=== PATIENT | male | born 1950 | race Caucasian/White ===

== ENCOUNTER 2018-10-28 06:29 | Day surgery (SDC) | payer BC, MEDICARE ==
[2018-10-21 10:30] VITALS: BMI 30.2
--- NOTE | 2018-10-27 18:51 | P.GSHP ---
History of Present Illness H&P Date: 10/27/18 Chief Complaint: Prostate cancer The patient is a 68-year-old white male found to have an elevated PSA level of 6.75. He has a history of superficial bladder cancer. His last bladder cancer recurrence was in October 2016. A repeat PSA level was 5.8. He underwent a prostate ultrasound with biopsies. The prostate volume was 35.1 mL. 4 of 12 biopsies showed [place] 3+4 adenocarcinoma. He has elected to be treated with external beam radiation therapy. He has elected to undergo Space OAR implant prior to receiving radiation therapy. - Constitutional Constitutional: Denies chills, Denies fever - Genitourinary (Female) Genitourinary: Reports nocturia Past Medical History Past Medical History: Coronary Artery Disease (CAD), Cancer, Heart Failure, Hyperlipidemia, Hypertension, Prostate Disorder Additional Past Medical History / Comment(s): hx bleeding ulcer, bladder cancer, prostate cancer History of Any Multi-Drug Resistant Organisms: None Reported Past Surgical History: Back Surgery, Coronary Bypass/CABG, Heart Catheterization, Orthopedic Surgery, Tonsillectomy Additional Past Surgical History / Comment(s): CABG 10/1998, rt knee replacement, sonja shoulder rotator cuff, neck fusion(no limitations in neck movement), lumbar laminectomy, Past Anesthesia/Blood Transfusion Reactions: No Reported Reaction Smoking Status: Former smoker - Past Family History Mother Family Medical History: No Reported History Medications and Allergies Home Medications Medication Instructions Recorded Confirmed Type ALPRAZolam [Xanax] 0.25 mg PO BID 10/21/18 10/21/18 History Aspirin [Adult Low Dose Aspirin EC] 81 mg PO DAILY 10/21/18 10/21/18 History Atorvastatin [Lipitor] 40 mg PO HS 10/21/18 10/21/18 History Furosemide [Lasix] 20 mg PO HS 10/21/18 10/21/18 History Hydrocodone/Acetaminophen [[place] 1 tab PO Q4H PRN 10/21/18 10/21/18 History 10-325] Metoprolol Tartrate [Lopressor] 100 mg PO DAILY 10/21/18 10/21/18 History Beach-3 Fatty Acids/Fish Oil [Fish 1 each PO DAILY 10/21/18 10/21/18 History Oil 1,000 mg Softgel] Potassium Chloride [Klor-Con 20] 20 meq PO HS 10/21/18 10/21/18 History Tamsulosin HCl [Flomax] 0.4 mg PO PC-SUPPER 10/21/18 10/21/18 History amLODIPine [Norvasc] 10 mg PO DAILY 10/21/18 10/21/18 History Allergies Allergy/AdvReac Type Severity Reaction Status Date / Time Penicillins Allergy Rash/Hives Verified 10/21/18 10:13 Surgical - Exam - General well developed, well nourished, no distress - Respiratory normal respiratory effort - Abdomen Abdomen: soft, non tender, no guarding, no rigid, no rebound - Genitourinary normal penis with no external lesions, testicles non-tender - Rectum Rectum: normal sphincter tone, no masses, other (Prostate mildly enlarged and smooth) - Psychiatric oriented to time, oriented to person, oriented to place, speech is normal, memory intact Assessment and Plan Plan: The patient has elected to undergo SpaceOAR hydrogel implant prior to receiving radiation therapy. He understands that the rationale for the procedure is to create distance between the prostate and rectum, thus decreasing the likelihood of radiation proctitis. The procedure has been reviewed in detail with the patient. He is aware of potential risks, which include anesthesia, bleeding, perineal bruising, pain or discomfort; needle penetration of the bladder, prostate, rectal wall, rectum, or urethra; injection of SpaceOAR hydrogel into the bladder, prostate, rectal wall, rectum, or urethra; local inflammatory reactions; infection; injection of air, fluid or SpaceOAR hydrogel intravascularly; urinary retention; rectal mucosal damage, ulcers, necrosis; bleeding; constipation; and rectal urgency. It was explained to him that the hydrogel is resorbed after approximately 12 weeks.
[~2018-10-28 06:29] MED LIST: DEXAMETHASONE SOD PHOSPHATE 10 MG/ML 1 ML VIAL IV ONE; LACTATED RINGERS 1,000 ML IV SCH; LEVOFLOXACIN 500MG-D5W PMX 500 MG in DEXTROSE/WATER 1 100ML.BAG IVPB ONE; LIDOCAINE 1% 20 ML VIAL (10MG/ML) FOR IV START INTRADERMA PRN
[2018-10-28 06:54] VITALS: RESP 16
[2018-10-28] MEDS ORDERED: PROPOFOL 10 MG/ML 20 ML VIAL IV ONE (07:30)
[2018-10-28] MEDS ORDERED: fentaNYL (PF) 50 MCG/ML 2 ML AMP ONE (07:30)
[2018-10-28] MEDS ORDERED: KETAMINE 10 MG/ML 20 ML VIAL ONE (07:30)
[2018-10-28] MEDS ORDERED: LIDOCAINE 1% INJ 10MG/ML (20 ML MDV) ONE (07:30)
[2018-10-28] MEDS ORDERED: MIDAZOLAM 2 MG/2 ML VIAL ONE (07:30)
[2018-10-28] MEDS ORDERED: LIDOCAINE 2% (PF) 20 MG/ML 5 ML VIAL SQ ONE (07:34)
[2018-10-28 08:30] VITALS: TEMP 98
[2018-10-28] MEDS: HYDROmorphone 0.5 MG/0.5 ML SYRINGE IVP PRN ×2 (08:36→08:41)
--- NOTE | 2018-10-28 09:00 | P.OP ---
Date of Procedure: 10/28/18 Preoperative Diagnosis: Adenocarcinoma of the Prostate Postoperative Diagnosis: Same Procedure(s) Performed: SpaceOAR Hydrogel Implant Anesthesia: MAC Surgeon: Patel Peoples Estimated Blood Loss (ml): 10 IV fluids (ml): 500 Pathology: none sent Condition: stable Disposition: PACU Indications for Procedure: The patient is a 68-year-old white male found to have an elevated PSA level of 6.75. He has a history of superficial bladder cancer. His last bladder cancer recurrence was in October 2016. A repeat PSA level was 5.8. He underwent a prostate ultrasound with biopsies. The prostate volume was 35.1 mL. 4 of 12 biopsies showed [place] 3+4 adenocarcinoma. He has elected to be treated with external beam radiation therapy. He has elected to undergo Space OAR implant prior to receiving radiation therapy. Operative Findings: Greater than 1 cm separation created between the prostate and rectum. Description of Procedure: The patient was taken to the operating room and placed in the dorsolithotomy position, with his legs supported in Rosendo stirrups. The external genitalia was prepped and draped sterilely. The Bruel and Kjaer transrectal ultrasound probe was placed intrarectally. The prostate was imaged. The probe was then placed within the stabilizing stand. A spinal needle was advanced under ultrasonic guidance to the level of the urogenital diaphragm, and lidocaine was used to infiltrate the tissues as the needle was withdrawn. Next, the SpaceOAR needle was passed through the midline of the perineum, 1-2 cm anterior to the anal opening. The needle was slowly advanced under ultrasonic guidance until the needle tip was located within the fat plane between the prostate and rectum, at the level of the mid prostate gland. The needle was confirmed to be midline on the axial imaging. A small amount of normal saline was injected for hydrodissection. Next, the SpaceOAR components were mixed and loaded into the Y connector per protocol. The Y connector was then connected to the needle, and the components were injected slowly over a course of approximately 12 seconds. A total of 10 ml was injected. Significant distance was created between the prostate and rectum, as desired. It should be noted that at no point was there any concern of rectal perforation. The needle was withdrawn, as well as the transrectal ultrasound probe, and the procedure was terminated. The patient tolerated the procedure well and was taken to the recovery room in stable condition.
[2018-10-28 09:34] VITALS: BP 150/81; PULSE 78
== END 2018-10-28 09:54 | disposition home or self-care (01) ==
LOC: OR 06:29
PROVIDERS: ATTEND Urology
DX: C61 Malignant neoplasm of prostate (principal); I25.10 Atherosclerotic heart disease of native coronary artery without angina pectoris; E78.5 Hyperlipidemia, unspecified; I11.0 Hypertensive heart disease with heart failure; I50.9 Heart failure, unspecified; Z85.51 Personal history of malignant neoplasm of bladder; Z98.1 Arthrodesis status; Z87.891 Personal history of nicotine dependence; Z79.82 Long term (current) use of aspirin; Z79.899 Other long term (current) drug therapy; Z88.0 Allergy status to penicillin; Z90.89 Acquired absence of other organs; Z95.1 Presence of aortocoronary bypass graft; Z96.651 Presence of right artificial knee joint; Z98.890 Other specified postprocedural states
CPT/HCPCS: 55874; J2250; J1100; J1956; J2001 ×2; J3010; J2704; J1170

== ENCOUNTER → 2019-07-13 | Outpatient (CLI) | payer BC ==
--- NOTE | 2019-07-13 12:00 | US ---
EXAMINATION TYPE: US kidneys/renal and bladder DATE OF EXAM: 07/13/2019 COMPARISON: NONE CLINICAL HISTORY: N20.0 CALCULUS OF KIDNEY. Rt flank pain, probable renal cell carcinoma , hx of prostate cancer, bladder cancer EXAM MEASUREMENTS: Right Kidney: 12.8 x 5.6 x 5.2 cm Left Kidney: 12.8 x 5.6 x 4.9 cm Right Kidney: hyperechoic mass measuring 3.9 x 3.5 x 4.2 suspicious for renal cell carcinoma, anechoi c parapelvic mass, measuring 1.3 x 1.0 x 1.0cm, lateral lobulations Left Kidney: hyperechoic foci measuring 0.5 x 0.3 x 0.7 Bladder: wnl Bilateral Jets seen: left jet seen, right not visualized Both kidneys are symmetric and normal in size. An upper to mid pole level there is 3.9 x 3.5 cm oval hyperechoic mass in the right kidney. No right-sided hydronephrosis. Left kidney shows 5 mm nonshadow ing hyperechoic focus lower pole level suspicious for small stone. No hydronephrosis noted. Bladder p oorly distended. IMPRESSION: Suspicious area right kidney worrisome for roughly 4 cm solid mass or neoplasm. Follow-up renal protocol CT or MRI advised if this has not been performed. Possible nonobstructing 5 mm left r enal calculus. No hydronephrosis noted bilaterally.
--- NOTE | 2019-07-13 12:52 | XR ---
KUB HISTORY: Calculus of kidney Frontal KUB submitted on 2 images And correlation ultrasound 07/13/2019 Postop changes are noted in the lumbar spine, there is degenerative disc change with hypertrophic spo ndylosis, spinal curvature. Bone mineralization is normal. Question small calcification in the lower pole of the left kidney measuring approximately 4 mm. Vascular calcifications are noted in the pelvis . No evident bowel obstruction or pneumoperitoneum. Prostatic calcifications are suspected. IMPRESSION: Left-sided nephrolithiasis. Degenerative disc disease. Renal mass described on ultrasound in the right kidney not seen on plain film.
== END | disposition home or self-care (01) ==
LOC: RADUSWWP 10:54
PROVIDERS: ATTEND Urology
DX: N20.0 Calculus of kidney (principal); Z88.0 Allergy status to penicillin
CPT/HCPCS: 74018; 76770

== ENCOUNTER → 2019-08-10 | Outpatient (CLI) | payer BC ==
[2019-08-10 12:06] LABS: Basophils % (A) 0 %; Eosinophils # (A) 0.1 k/uL (0-0.7); Eosinophils % (A) 1 %; HCT 42.7 % (39.0-53.0); HGB 14.4 gm/dL (13.0-17.5); Lymphocytes # (A) 0.7 k/uL (1.0-4.8); Lymphocytes % (A) 12 %; MCH 33.7 pg (25.0-35.0); MCHC 33.9 g/dL (31.0-37.0); MCV 99.5 fL (80.0-100.0); Mean Platelet Volume 7.4; Monocytes # (A) 0.5 k/uL (0-1.0); Monocytes % (A) 9 %; Neutrophils # (A) 4.3 k/uL (1.3-7.7); Neutrophils % (A) 75 %; Platelet Count 216 k/uL (150-450); RBC 4.29 m/uL (4.30-5.90); RDW 13.2 % (11.5-15.5); WBC 5.7 k/uL (3.8-10.6)
[2019-08-10 12:19] LABS: African American GFR (CKD) >90 (>60 ml/min/1.73 sqM); Anion Gap 10 mmol/L; Blood Urea Nitrogen 14 mg/dL (9-20); Calcium 9.5 mg/dL (8.4-10.2); Carbon Dioxide 24 mmol/L (22-30); Chloride 104 mmol/L (98-107); Glucose 124 mg/dL (74-99); Non-African American GFR(CKD) >90 (>60 ml/min/1.73 sqM); Potassium 3.5 mmol/L (3.5-5.1); Sodium 138 mmol/L (137-145)
--- NOTE | 2019-08-10 13:53 | XR ---
EXAMINATION TYPE: XR chest 2V DATE OF EXAM: 08/10/2019 COMPARISON: NONE HISTORY: Surgical testing TECHNIQUE: Frontal and lateral views of the chest are obtained. FINDINGS: Patient is post median sternotomy. There is no focal air space opacity, pleural effusion, o r pneumothorax seen. The cardiac silhouette size is enlarged. The osseous structures are intact, p ostop change noted to the right shoulder. Right hemidiaphragm is elevated. IMPRESSION: Cardiomegaly, postop changes, patient is rotated there is elevation of right hemidiaphra gm.
== END | disposition home or self-care (01) ==
LOC: RADMRIMAIN 10:29
PROVIDERS: ATTEND Urology
DX: Z01.818 Encounter for other preprocedural examination (principal); D41.01 Neoplasm of uncertain behavior of right kidney; I10 Essential (primary) hypertension; R06.02 Shortness of breath
CPT/HCPCS: 36415; 71046; 80048; 85025; 93005

== ENCOUNTER 2019-08-17 06:35 | Inpatient (IN) | payer BC, MEDICARE ==
--- NOTE | 2019-08-16 12:00 | P.HPIHPCON ---
History of Present Illness H&P Date: 08/16/19 Chief Complaint: Right sided renal tumor Mr Calhoun is 69 yo male with hx of right sided renal mass. MRI showed 4 cm mass in the right kidney. We discussed with him the option of radical nephrectomy, partial nephrectomy, Discussed with him the risk and benefit of each approach. He agreed to proceed with robtoic assisted partial nephrectomy. Discussed with him the potential of open conversion and potential of radical nephrectomy. Discussed risk of bleeding, injury to nearby organs. I have explained the operation/procedure to the patient, including the risks, benefits, side effects, alternative therapies (including not receiving the proposed treatment or service), the likelihood of the patient achieving his/her goals, and potential recuperation problems for the procedure/sedation/analgesia, as well as any blood products, if indicated. I also explained to the patient the risks, benefits and side effects of the alternatives, as well as the risks related to not receiving the proposed procedure, care, treatment, or services. Consent for Procedure: I have explained the operation/procedure to the patient, including the risks, benefits, side effects, alternative therapies (including not receiving the proposed treatment or service), the likelihood of the patient achieving his/her goals, and potential recuperation problems for the procedure/sedation/analgesia, as well as any blood products, if indicated. I also explained to the patient the risks, benefits and side effects of the alternatives, as well as the risks related to not receiving the proposed procedure, care, treatment, or services. Past Medical History Past Medical History: Coronary Artery Disease (CAD), Cancer, GERD/Reflux, Hyperlipidemia, Hypertension, Prostate Disorder Additional Past Medical History / Comment(s): hx bleeding ulcer, bladder cancer, prostate cancer(radiation 2019), constipation, dilated bile duct, History of Any Multi-Drug Resistant Organisms: None Reported Past Surgical History: Back Surgery, Bladder Surgery, Coronary Bypass/CABG, Heart Catheterization, Joint Replacement, Orthopedic Surgery, Tonsillectomy Additional Past Surgical History / Comment(s): CABG (quad)1998, rt knee replacement, sonja shoulder rotator cuff, neck fusion(no limitations in neck movement), lumbar laminectomy, 4 bladder surgeries to remove tumors Past Anesthesia/Blood Transfusion Reactions: No Reported Reaction Smoking Status: Former smoker - Past Family History Mother Family Medical History: No Reported History Medications and Allergies Home Medications Medication Instructions Recorded Confirmed Type ALPRAZolam [Xanax] 0.25 mg PO BID 10/21/18 08/15/19 History Atorvastatin [Lipitor] 40 mg PO HS 10/21/18 08/15/19 History Hydrocodone/Acetaminophen [[place] 1 tab PO Q4H PRN 10/21/18 08/15/19 History 10-325] Tamsulosin HCl [Flomax] 0.4 mg PO BID 10/21/18 08/15/19 History amLODIPine [Norvasc] 10 mg PO DAILY 10/21/18 08/15/19 History Metoprolol Succinate [Toprol XL] 100 mg PO DAILY 08/15/19 08/15/19 History Omeprazole 20 mg PO DAILY 08/15/19 08/15/19 History Ondansetron HCl [Zofran] 4 mg PO Q6HR PRN 08/15/19 08/15/19 History Potassium Chloride ER [K-Dur 20] 20 meq PO BID 08/15/19 08/15/19 History Allergies Allergy/AdvReac Type Severity Reaction Status Date / Time Penicillins Allergy Rash/Hives Verified 08/15/19 14:19 Surgical - Exam - General no distress - Respiratory normal expansion, normal respiratory effort - Abdomen Abdomen: soft, non tender - Psychiatric oriented to time, oriented to person, oriented to place Assessment and Plan Assessment: 69 yo male with hx of right sided renal tumor -OR for robotic Partial nephrectomy possible radical
[~2019-08-17 06:35] MED LIST changes: -LEVOFLOXACIN 500MG-D5W PMX 500 MG in DEXTROSE/WATER 1 100ML.BAG IVPB ONE; -LIDOCAINE 1% 20 ML VIAL (10MG/ML) FOR IV START INTRADERMA PRN; +MIDAZOLAM 2 MG/2 ML VIAL IV PRN; +ONDANSETRON 4 MG/2 ML VIAL IVP ONE
[2019-08-17] MEDS ORDERED: LIDOCAINE 1% (10MG/ML) FOR IV START INTRADERMA ONE (07:05)
[2019-08-17] MEDS ORDERED: HEPARIN SODIUM,PORCINE 5,000 UNIT/ML 1 ML VIAL ONE (07:16)
[2019-08-17] MEDS ORDERED: ONDANSETRON 4 MG/2 ML VIAL ONE (07:16)
[2019-08-17] MEDS: HEPARIN SODIUM,PORCINE 5,000 UNIT/ML 1 ML VIAL SQ ONE ×2 (07:30→07:31)
[2019-08-17] MEDS ORDERED: PHENYLEPHRINE-0.9% NACL SYG 1 MG/10 ML SYRINGE ONE (07:33)
[2019-08-17] MEDS ORDERED: SUCCINYLCHOLINE CHLORIDE 100 MG/5 ML SYR IV ONE (07:33)
[2019-08-17] MEDS ORDERED: fentaNYL (PF) 50 MCG/ML 2 ML AMP ONE (07:33)
[2019-08-17] MEDS ORDERED: LIDOCAINE 1% INJ 10MG/ML (20 ML MDV) ONE (07:33)
[2019-08-17] MEDS ORDERED: ROCURONIUM BROMIDE 10 MG/ML 5 ML VIAL IV ONE (07:33)
[2019-08-17] MEDS ORDERED: GLYCOPYRROLATE 0.2 MG/ML 2 ML VIAL ONE (07:33)
[2019-08-17] MEDS ORDERED: MIDAZOLAM 2 MG/2 ML VIAL ONE (07:33)
[2019-08-17] MEDS ORDERED: HYDROmorphone (PF) 1 MG/ML ONE (07:33)
[2019-08-17] MEDS ORDERED: ePHEDrine SULFATE/0.9% NACL/PF 50 MG/5 ML SYRINGE IV ONE (07:33)
[2019-08-17] MEDS ORDERED: PROPOFOL 10 MG/ML 20 ML VIAL IV ONE (07:33)
[2019-08-17] MEDS ORDERED: NEOSTIGMINE 1 MG/ML 10 ML VIAL ONE (07:33)
[2019-08-17] MEDS ORDERED: BUPIVACAIN-EPI 0.5%-1:200,000 30 ML VIAL SQ ONE (08:37)
[2019-08-17] MEDS ORDERED: D5-0.45% NACL WITH KCL 20MEQ/L 1,000 ML IV SCH (09:00)
[2019-08-17] MEDS ORDERED: LACTATED RINGERS 1,000 ML IV ONE (10:15)
--- NOTE | 2019-08-17 10:48 | P.OP ---
Date of Procedure: 08/17/19 Preoperative Diagnosis: Right renal mass Postoperative Diagnosis: Right renal mass Procedure(s) Performed: Robotic right radical nephrectomy Anesthesia: ANNEMARIE Surgeon: Shant Berry Scenic Designer #1: Cruz Hernandez Estimated Blood Loss (ml): 100 IV fluids (ml): 700 Urine output (ml): 200 Pathology: other (right kidney) Condition: stable Disposition: PACU Indications for Procedure: The patient was found to have an incidentally detected large right upper pole renal mass which was mostly endophytic and extending to the collecting system Operative Findings: Extreme adiposity of the perinephric tissues with inflammatory fat. Large parasitic vessels and the perinephric fat. Multiple renal arteries and single renal vein. Description of Procedure: The patient elected to undergo a robotic right partial nephrectomy possible radical nephrectomy. All risks and complications were explained to him and a written informed consent was obtained. He was taken to the OR and administered general anesthesia and they placed in right lateral position. He was secured to the table and parts were prepped and draped. A Veress needle was used to gain access to the peritoneum and a pneumoperitoneum was established to 20 mmHg. Four 8 mm ports were placed along the midclavicular line and an additional 12 mm assistant boiler operator port was placed in the midline and a 5 mm liver retraction port in the in the xiphoid area The robot was docked. Inspection of the peritoneum revealed significant perinephric fat. The right colon was reflected off the gerota fascia and an incision was made in the pararenal ligament. The duodenum was reflected off the gerota fascia. There were multiple large parasitic vessels and the perinephric fat. These were controlled with bipolar. The perinephric fat was retracted laterally to identify the psoas muscle. An accessory renal artery was seen in the lower pole of the kidney. This was protected. Dissection was carried superiorly to the renal hilum where again a lot off take inflammatory adipose tissue was encountered around the renal vessels. There were 2 separate renal arteries 1 each below and above the renal vein and the renal vein was also dissected. Attention was then directed to the perinephric fat and considerable time was spent and reflecting the perinephric fat off the kidney. The fat was found to be inflammatory and adherent to the renal capsule and it was impossible to separate the fat from the Seal adequately to identify the margins of the kidney and the renal mass. A decision was then made to proceed with a radical nephrectomy. The lower pole renal artery was clipped twice on the body side and once on the specimen side and cut in between. Using a Endo KHADAR stapler 60 mm vascular load of the renal hilum was controlled with vernell and cut. The superior pole of the kidney was dissected by incising the general pass fascia and controlling all bleeding points with bipolar and monopolar. The dissection was then carried inferiorly lateral to the kidney. At the lower pole of the kidney a staple was used to control the gonadal vessel and the ureter and the kidney was completely freed. Hemostasis was confirmed and doubly checked. Tisseel was used over the hilum and a Surgicel was placed over the hilum. The kidney with adrenal mass was placed in a 15 mm Endo Catch bag. A count off instruments was completed. And the Endo Catch bag was removed after making an open incision. The paramedian incision was closed in 2 layers with #1 stratafix and the skin was closed with 4-0 Monocryl. The patient tolerated the procedure well and was taken to recovery in stable condition
[2019-08-17] MEDS: HYDROmorphone 0.5 MG/0.5 ML SYRINGE IVP PRN ×4 (11:06→11:36)
[2019-08-17] MEDS: KETOROLAC 30 MG/ML 1 ML VIAL IVP SCH ×2 (11:37→15:58)
[2019-08-17] MEDS: fentaNYL (PF) 50 MCG/ML 2 ML AMP IVP ONE ×2 (12:08→12:21)
[2019-08-17] MEDS: HYDROmorphone 1 MG/ML 1 ML SYRINGE IVP PRN ×4 (13:23→22:33)
[2019-08-17] MEDS: D5-0.45% NACL WITH KCL 20MEQ/L 1,000 ML IV SCH ×2 (14:10→22:47)
[2019-08-17] MEDS: HEPARIN SODIUM,PORCINE 5,000 UNIT/ML 1 ML VIAL SQ SCH (15:58)
[2019-08-17] MEDS: ONDANSETRON 4 MG/2 ML VIAL IVP PRN (16:57)
[2019-08-17] MEDS ORDERED: SODIUM CHLORIDE 0.9% 500 ML 500 ML IV ONE (21:02)
[2019-08-17 21:18] LABS: Calcium 7.6 mg/dL (8.4-10.2); Potassium 4.7 mmol/L (3.5-5.1)
[2019-08-17 21:37] LABS: Basophils % (A) 0 %; Eosinophils # (A) 0.1 k/uL (0-0.7); Eosinophils % (A) 1 %; HCT 32.6 % (39.0-53.0); Hypochromasia Marked; Lymphocytes # (A) 0.2 k/uL (1.0-4.8); Lymphocytes % (A) 2 %; MCH 33.6 pg (25.0-35.0); MCHC 30.6 g/dL (31.0-37.0); Macrocytosis Marked; Monocytes # (A) 0.5 k/uL (0-1.0); Monocytes % (A) 5 %; Neutrophils # (A) 9.2 k/uL (1.3-7.7); Neutrophils % (A) 92 %; Platelet Count 276 k/uL (150-450); RBC 2.97 m/uL (4.30-5.90); RDW 13.1 % (11.5-15.5)
[2019-08-17 21:40] LABS: MCV 109.7 fL (80.0-100.0)
[2019-08-17] MEDS: TAMSULOSIN 0.4 MG CAP.ER.24H PO SCH (22:43)
[2019-08-17] MEDS: ATORVASTATIN 40 MG TAB PO SCH (22:44)
[2019-08-17] MEDS: ALPRAZolam 0.25 MG TAB PO SCH (22:45)
[2019-08-18] MEDS: HYDROmorphone 1 MG/ML 1 ML SYRINGE IVP PRN ×7 (01:12→23:14)
[2019-08-18] MEDS: KETOROLAC 30 MG/ML 1 ML VIAL IVP SCH ×3 (01:14→12:15)
[2019-08-18] MEDS: HEPARIN SODIUM,PORCINE 5,000 UNIT/ML 1 ML VIAL SQ SCH ×3 (01:19→16:38)
[2019-08-18] MEDS: ONDANSETRON 4 MG/2 ML VIAL IVP PRN ×3 (06:13→20:24)
[2019-08-18] MEDS: D5-0.45% NACL WITH KCL 20MEQ/L 1,000 ML IV SCH ×2 (07:02→10:14)
[2019-08-18] MEDS: ALPRAZolam 0.25 MG TAB PO SCH ×2 (08:51→20:23)
[2019-08-18] MEDS: TAMSULOSIN 0.4 MG CAP.ER.24H PO SCH ×2 (08:52→20:24)
[2019-08-18] MEDS: METOPROLOL SUCCINATE (ER) 100 MG TAB.ER.24H PO SCH (08:52)
[2019-08-18] MEDS: PANTOPRAZOLE 40 MG TABLET PO SCH (08:52)
[2019-08-18] MEDS: amLODIPine 10 MG TAB PO SCH (08:55)
[2019-08-18 09:43] LABS: Basophils % (A) 0 %; Eosinophils % (A) 0 %; HCT 25.4 % (39.0-53.0); Lymphocytes # (A) 0.4 k/uL (1.0-4.8); Lymphocytes % (A) 4 %; MCH 33.4 pg (25.0-35.0); Macrocytosis Slight; Mean Platelet Volume 7.8; Monocytes # (A) 0.6 k/uL (0-1.0); Monocytes % (A) 6 %; Neutrophils # (A) 8.9 k/uL (1.3-7.7); Neutrophils % (A) 89 %; Platelet Count 238 k/uL (150-450); RBC 2.52 m/uL (4.30-5.90); RDW 13.5 % (11.5-15.5); WBC 10.1 k/uL (3.8-10.6)
[2019-08-18 09:44] LABS: HGB 8.4 gm/dL (13.0-17.5); MCV 101.1 fL (80.0-100.0)
--- NOTE | 2019-08-18 11:51 | P.PN ---
Subjective Progress Note Date: 08/18/19 Principal diagnosis: right renal tumor POD #1 S/P right sided radical nephrectomy Having abdominal pain this am worse on the left, also complains of nausea. Hgb dropped to 8.4--> 10.0-->14 Objective - Vital Signs Vital signs: Vital Signs Temp 97.9 F 08/18/19 07:00 Pulse 101 H 08/18/19 08:55 Resp 18 08/18/19 07:00 BP 132/75 08/18/19 08:55 Pulse Ox 92 L 08/18/19 08:53 Intake & Output 08/17/19 08/18/19 08/18/19 18:59 06:59 18:59 Intake Total 2890 Output Total 1280 Balance 1610 Weight 96.1 kg Intake: IV 2350 Oral 540 Output: Urine 880 Estimated Blood Loss 400 Other: Voiding Method Indwelling Catheter Indwelling Catheter Indwelling Catheter # Bowel Movements 0 # Emeses 2 - Constitutional General appearance: Present: mild distress - Gastrointestinal General gastrointestinal: Present: distended, soft, tenderness (left quadrant ) - Psychiatric Psychiatric: Present: A&O x's 3 - Labs CBC & Chem 7: 08/18/19 08:53 08/17/19 20:45 Labs: Abnormal Lab Results - Last 24 Hours (Table) 08/17/19 08/17/19 08/18/19 Range/Units 20:45 20:45 08:53 RBC 2.97 L 2.52 L (4.30-5.90) m/uL Hgb 10.0 L D 8.4 L D (13.0-17.5) gm/dL Hct 32.6 L 25.4 L (39.0-53.0) % MCV 109.7 H D 101.1 H D (80.0-100.0) fL MCHC 30.6 L (31.0-37.0) g/dL Neutrophils # 9.2 H 8.9 H (1.3-7.7) k/uL Lymphocytes # 0.2 L 0.4 L (1.0-4.8) k/uL Macrocytosis Marked A Sodium 133 L (137-145) mmol/L Carbon Dioxide 11 L (22-30) mmol/L BUN 24 H (9-20) mg/dL Creatinine 1.30 H (0.66-1.25) mg/dL Glucose 263 H (74-99) mg/dL Calcium 7.6 L (8.4-10.2) mg/dL Assessment and Plan Assessment: POD #1 S/P right sided radical nephrectomy, hgb dropped to 8.4 from 14 -Bed rest -NPO -q6 hgb checks
[2019-08-18] MEDS: methocarbamoL 500 MG TAB PO SCH ×3 (12:31→20:23)
[2019-08-18] MEDS: ERYTHROMYCIN 5 MG/GM OPHTH OINT 3.5 GM TUBE RIGHT EYE SCH (12:32)
[2019-08-18 15:31] LABS: Basophils % (A) 0 %; Eosinophils # (A) 0.1 k/uL (0-0.7); Eosinophils % (A) 1 %; HGB 8.3 gm/dL (13.0-17.5); Lymphocytes # (A) 0.6 k/uL (1.0-4.8); Lymphocytes % (A) 5 %; MCH 32.3 pg (25.0-35.0); MCHC 31.9 g/dL (31.0-37.0); MCV 101.4 fL (80.0-100.0); Macrocytosis Slight; Mean Platelet Volume 7.8; Monocytes # (A) 0.5 k/uL (0-1.0); Monocytes % (A) 4 %; Neutrophils # (A) 10.6 k/uL (1.3-7.7); Neutrophils % (A) 89 %; Platelet Count 257 k/uL (150-450); RBC 2.56 m/uL (4.30-5.90); RDW 13.6 % (11.5-15.5); WBC 11.9 k/uL (3.8-10.6)
[2019-08-18 15:56] LABS: Calcium 7.6 mg/dL (8.4-10.2); Potassium 3.8 mmol/L (3.5-5.1)
[2019-08-18] MEDS: SODIUM CHLORIDE 0.9% 1,000 ML IV SCH (16:38)
--- NOTE | 2019-08-18 17:38 | XR ---
EXAMINATION TYPE: XR chest 2V DATE OF EXAM: 08/18/2019 COMPARISON: 08/10/2019 HISTORY: Short of breath TECHNIQUE: 2 views. FINDINGS: There is no heart failure. There is some linear density at the left lung base. Heart appears slightl y enlarged. There is poor inspiration. There are sternal wires. IMPRESSION: There is some atelectasis at the left lung base that is new compared to old exam. Inspira tion decreased compared to old exam.
[2019-08-18] MEDS: ATORVASTATIN 40 MG TAB PO SCH (20:23)
[2019-08-18 22:35] LABS: HGB 7.7 gm/dL (13.0-17.5); MCH 33.8 pg (25.0-35.0); MCHC 33.3 g/dL (31.0-37.0); MCV 101.6 fL (80.0-100.0); Macrocytosis Slight; Mean Platelet Volume 7.7; Platelet Count 215 k/uL (150-450); RBC 2.27 m/uL (4.30-5.90); RDW 13.6 % (11.5-15.5); WBC 10.6 k/uL (3.8-10.6)
[2019-08-19] MEDS: ERYTHROMYCIN 5 MG/GM OPHTH OINT 3.5 GM TUBE RIGHT EYE SCH ×4 (01:28→23:34)
[2019-08-19] MEDS: HEPARIN SODIUM,PORCINE 5,000 UNIT/ML 1 ML VIAL SQ SCH ×2 (01:28→09:20)
[2019-08-19] MEDS: SODIUM CHLORIDE 0.9% 1,000 ML IV SCH ×5 (01:30→23:34)
[2019-08-19 03:03] LABS: HCT 24.1 % (39.0-53.0); HGB 7.8 gm/dL (13.0-17.5); MCH 31.9 pg (25.0-35.0); MCHC 32.6 g/dL (31.0-37.0); MCV 97.8 fL (80.0-100.0); Mean Platelet Volume 9.4; Platelet Count 168 k/uL (150-450); RBC 2.46 m/uL (4.30-5.90)
[2019-08-19] MEDS: ONDANSETRON 4 MG/2 ML VIAL IVP PRN (05:26)
[2019-08-19] MEDS: HYDROmorphone 1 MG/ML 1 ML SYRINGE IVP PRN ×4 (05:26→23:30)
[2019-08-19] MEDS: PANTOPRAZOLE 40 MG TABLET PO SCH (09:20)
[2019-08-19] MEDS: amLODIPine 10 MG TAB PO SCH (09:20)
[2019-08-19] MEDS: METOPROLOL SUCCINATE (ER) 100 MG TAB.ER.24H PO SCH (09:20)
[2019-08-19] MEDS: methocarbamoL 500 MG TAB PO SCH ×4 (09:20→20:53)
[2019-08-19] MEDS: ALPRAZolam 0.25 MG TAB PO SCH ×2 (09:20→20:53)
[2019-08-19] MEDS: TAMSULOSIN 0.4 MG CAP.ER.24H PO SCH ×2 (09:20→20:53)
[2019-08-19 10:22] LABS: Basophils % (A) 0 %; Eosinophils % (A) 0 %; HCT 26.4 % (39.0-53.0); HGB 9.1 gm/dL (13.0-17.5); Lymphocytes # (A) 0.4 k/uL (1.0-4.8); Lymphocytes % (A) 5 %; MCH 33.5 pg (25.0-35.0); MCHC 34.4 g/dL (31.0-37.0); MCV 97.5 fL (80.0-100.0); Mean Platelet Volume 7.9; Monocytes # (A) 0.5 k/uL (0-1.0); Monocytes % (A) 6 %; Neutrophils # (A) 7.9 k/uL (1.3-7.7); Neutrophils % (A) 88 %; Platelet Count 185 k/uL (150-450); RBC 2.71 m/uL (4.30-5.90); RDW 14.3 % (11.5-15.5); WBC 8.9 k/uL (3.8-10.6)
[2019-08-19 10:33] LABS: Calcium 7.3 mg/dL (8.4-10.2); Potassium 3.9 mmol/L (3.5-5.1)
--- NOTE | 2019-08-19 12:27 | ECHOF ---
Referral Reason:elev trop MEASUREMENTS -------- HEIGHT: 180.3 cm WEIGHT: 95.7 kg BP: RVIDd: 3.0 cm (< 3.3) IVSd: 1.5 cm (0.6 - 1.1) LVIDd: 3.9 cm (3.9 - 5.3) LVPWd: 1.8 cm (0.6 - 1.1) IVSs: 2.0 cm LVIDs: 2.5 cm LVPWs: 2.3 cm Ao Diam: 3.4 cm (2.0 - 3.7) AV Cusp: 2.4 cm (1.5 - 2.6) LA Diam: 3.4 cm (2.7 - 3.8) MV EXCURSION: 21.388 mm (> 18.000) MV EF SLOPE: 53 mm/s (70 - 150) EPSS: 0.9 cm RAP: 5.00 mmHg RVSP: 19.13 mmHg FINDINGS -------- Sinus rhythm. This was a technically difficult study with suboptimal views. The left ventricular size is normal. There is moderate concentric left ventricular hypertrophy. O verall left ventricular systolic function is low-normal with, an EF between 50 - 55 %. The right ventricle is normal in size. The left atrial size is normal. The right atrial size is normal. Lumason used The aortic valve is trileaflet and appears structurally normal. The mitral valve is normal. There is trace mitral regurgitation. The tricuspid valve appears structurally normal. Mild tricuspid regurgitation present. Right vent ricular systolic pressure is normal at < 35 mmHg. There is no pulmonic regurgitation present. The aortic root size is normal. IVC Not well visulized. There is no pericardial effusion. CONCLUSIONS -------- 1. Sinus rhythm. 2. This was a technically difficult study with suboptimal views. 3. The left ventricular size is normal. 4. There is moderate concentric left ventricular hypertrophy. 5. Overall left ventricular systolic function is low-normal with, an EF between 50 - 55 %. 6. The right ventricle is normal in size. 7. The left atrial size is normal. 8. The right atrial size is normal. 9. Lumason used 10. The aortic valve is trileaflet and appears structurally normal. 11. The mitral valve is normal. 12. There is trace mitral regurgitation. 13. The tricuspid valve appears structurally normal. 14. Mild tricuspid regurgitation present. 15. Right ventricular systolic pressure is normal at < 35 mmHg. 16. There is no pulmonic regurgitation present. 17. The aortic root size is normal. 18. IVC Not well visulized. 19. There is no pericardial effusion. GALLERY OR MUSEUM CURATOR: Jewell Espinal RDCS
--- NOTE | 2019-08-19 13:00 | P.CRDCN ---
History of Present Illness History of present illness: HISTORY OF PRESENTING ILLNESS This is a pleasant 69-year-old male past medical history significant for very artery disease status post four-vessel bypass grafting in 1998, hypertension, dyslipidemia and recent diagnosis of right renal mass. He follows in the office with Dr. 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 We have been asked to see in consultation for elevated troponin. He underwent robotic right nephrectomy yesterday with Dr. Hernandez. In the postoperative phase he became increasingly short of breath. He underwent a chest x-ray revealing some atelectasis at the left lung base with decreased inspiration. EKG was obtained revealing sinus tachycardia with no acute ischemic changes. Laboratory data was obtained initial hemoglobin was 10 which is down from preadmission level of 14 prompting serial CBCs to be obtained through the night. Repeat hemoglobin this morning is 9.8 with platelets of 185, sodium of 133, potassium 3.9, creatinine is 2.12 and troponin is 0.476, 0.395 and 0.204. Hemoglobin went down as low as 7.7. He is seen and examined sitting up in bed. He is complaining of significant dyspnea. He has mildly diaphoretic. He has no chest pain however complains of upper abdominal discomfort when he takes a deep breath. He denies dizziness or palpitations. He has no obvious signs of bleeding. He denies epistaxis, hematuria or melena. REVIEW OF SYSTEMS At the time of my exam: CONSTITUTIONAL: Denies fever or chills. CARDIOVASCULAR: Complains of shortness of breath and orthopnea. Denies chest pain, PND or palpitations. RESPIRATORY: Denies cough. GASTROINTESTINAL: Denies abdominal pain, diarrhea, constipation, nausea or vomiting. MUSCULOSKELETAL: Denies myalgias. NEUROLOGIC: Denies numbness, tingling or weakness. ENDOCRINE: Denies fatigue, weight change, polydipsia or polyurina. GENITOURINARY: Denies burning, hematuria or urgency with micturation. HEMATOLOGIC: Denies history of anemia or bleeding. PHYSICAL EXAMINATION Blood pressure 150/76 heart rate 101 afebrile and maintaining oxygen saturation on nasal cannula. CONSTITUTIONAL: No apparent distress. Mildly diaphoretic. HEENT: Head is normocephalic. Pupils are equal, round. Sclerae anicteric. Mucous membranes of the mouth are moist. No JVD. No carotid bruit. CHEST EXAMINATION: Lungs are clear to auscultation. No chest wall tenderness is noted on palpation or with deep breathing. HEART EXAMINATION: Regular rate and rhythm. Tachycardiac. S1, S2 heard. No murmurs, gallops or rub. ABDOMEN: Soft, tender on the right. Positive bowel sounds. EXTREMITIES: 2+ peripheral pulses, no lower extremity edema and no calf tenderness. NEUROLOGIC EXAMINATION: Patient is awake, alert and oriented x3. ASSESSMENT Shortness of breath Acute blood loss anemia secondary to right nephrectomy Troponin elevation likely secondary to oxygen supply demand mismatch representing a type II myocardial injury Status post robotic right nephrectomy Acute kidney injury Hypertension Dyslipidemia History of coronary artery disease status post 4V-bypass grafting in 1998 PLAN Obtain 2-D echocardiogram and Doppler study to assess cardiac structure and function. Obtain stat VQ scan to rule out underlying pulmonary embolism. Continue Toprol as previously ordered. Further recommendations to follow based on clinical course. Thank you kindly for this consultation. Nurse Practitioner note has been reviewed, I agree with a documented findings and plan of care. Patient was seen and examined. Past Medical History Past Medical History: Coronary Artery Disease (CAD), Cancer, GERD/Reflux, Hyperlipidemia, Hypertension, Prostate Disorder Additional Past Medical History / Comment(s): hx bleeding ulcer, bladder cancer, prostate cancer(radiation 2019), constipation, dilated bile duct, History of Any Multi-Drug Resistant Organisms: None Reported Past Surgical History: Back Surgery, Bladder Surgery, Coronary Bypass/CABG, Heart Catheterization, Joint Replacement, Orthopedic Surgery, Tonsillectomy Additional Past Surgical History / Comment(s): CABG (quad)1998, rt knee replacement, sonja shoulder rotator cuff, neck fusion(no limitations in neck move ment), lumbar laminectomy, 4 bladder surgeries to remove tumors Past Anesthesia/Blood Transfusion Reactions: No Reported Reaction Past Psychological History: Anxiety Smoking Status: Former smoker Past Alcohol Use History: Daily Additional Past Alcohol Use History / Comment(s): quit smoking 1998, smoked for 20 yrs, 1 PPD, 2 alcohol drinks daily Past Drug Use History: None Reported - Past Family History Mother Family Medical History: No Reported History Medications and Allergies Home Medications Medication Instructions Recorded Confirmed Type ALPRAZolam [Xanax] 0.25 mg PO BID 10/21/18 08/17/19 History Atorvastatin [Lipitor] 40 mg PO HS 10/21/18 08/17/19 History Hydrocodone/Acetaminophen [[place] 1 tab PO Q4H PRN 10/21/18 08/17/19 History 10-325] Tamsulosin HCl [Flomax] 0.4 mg PO BID 10/21/18 08/17/19 History amLODIPine [Norvasc] 10 mg PO DAILY 10/21/18 08/17/19 History Metoprolol Succinate [Toprol XL] 100 mg PO DAILY 08/15/19 08/17/19 History Omeprazole 20 mg PO DAILY 08/15/19 08/17/19 History Ondansetron HCl [Zofran] 4 mg PO Q6HR PRN 08/15/19 08/17/19 History Potassium Chloride ER [K-Dur 20] 20 meq PO BID 08/15/19 08/17/19 History Allergies Allergy/AdvReac Type Severity Reaction Status Date / Time Penicillins Allergy Rash/Hives Verified 08/17/19 06:56 Physical Exam Vitals: Vital Signs Temp Pulse Pulse Resp BP BP Pulse Ox 08/19/19 07:00 99.0 F 101 H 20 150/76 91 L 08/19/19 05:20 98.2 F 102 H 20 140/73 08/19/19 03:56 98.6 F 100 22 128/7 08/19/19 03:26 98.2 F 96 20 127/73 08/19/19 03:16 98.8 F 94 18 126/73 08/19/19 03:13 98.4 F 97 20 124/75 08/19/19 02:17 98.3 F 94 22 118/76 08/19/19 00:32 98.0 F 88 20 115/68 08/19/19 00:02 98.0 F 98 22 120/75 08/18/19 23:52 98.0 F 100 24 112/75 08/18/19 23:48 98.2 F 102 H 24 115/67 91 L 08/18/19 19:23 98.2 F 105 H 139/72 91 L 08/18/19 17:37 102 H 08/18/19 15:00 98.4 F 120 H 18 153/84 90 L 08/18/19 13:35 91 94 L Intake and Output 08/18/19 08/19/19 08/19/19 22:59 06:59 14:59 Intake Total 310 Output Total 550 700 Balance -550 -390 Intake: Blood Product 310 Rc As-1 Unit 310 [id number] Rc As-3 Unit 0 [id number] Output: Urine 550 700 Other: Voiding Method Indwelling Catheter Results 08/19/19 09:26 08/19/19 09:26 Cardiac Enzymes 08/18/19 08/18/19 08/19/19 Range/Units 15:11 22:14 09:26 Troponin I 0.476 H* 0.395 H* 0.204 H* (0.000-0.034) ng/mL CBC 08/18/19 08/18/19 08/19/19 Range/Units 15:11 22:14 02:47 WBC 11.9 H 10.6 10.0 (3.8-10.6) k/uL RBC 2.56 L 2.27 L 2.46 L (4.30-5.90) m/uL Hgb 8.3 L 7.7 L 7.8 L (13.0-17.5) gm/dL Hct 26.0 L 23.0 L 24.1 L (39.0-53.0) % Plt Count 257 215 168 (150-450) k/uL 08/19/19 Range/Units 09:26 WBC 8.9 (3.8-10.6) k/uL RBC 2.71 L (4.30-5.90) m/uL Hgb 9.1 L (13.0-17.5) gm/dL Hct 26.4 L (39.0-53.0) % Plt Count 185 (150-450) k/uL Comprehensive Metabolic Panel 08/18/19 08/19/19 Range/Units 15:11 09:26 Sodium 130 L 133 L (137-145) mmol/L Potassium 3.8 3.9 (3.5-5.1) mmol/L Chloride 102 105 (98-107) mmol/L Carbon Dioxide 20 L 20 L (22-30) mmol/L BUN 33 H 34 H (9-20) mg/dL Creatinine 1.92 H 2.12 H (0.66-1.25) mg/dL Glucose 170 H 130 H (74-99) mg/dL Calcium 7.6 L 7.3 L (8.4-10.2) mg/dL Current Medications Generic Name Dose Route Start Last Admin Trade Name Freq PRN Reason Stop Dose Admin Alprazolam 0.25 mg 08/17/19 21:00 08/19/19 09:20 Xanax PO 0.25 mg BID [facility] Administration Amlodipine Besylate 10 mg 08/18/19 09:00 08/19/19 09:20 Norvasc PO 10 mg DAILY [facility] Administration Atorvastatin Calcium 40 mg 08/17/19 21:00 08/18/19 20:23 Lipitor PO 40 mg HS [facility] Administration Erythromycin 1 applic 08/18/19 16:00 08/19/19 09:20 Romycin Ophth Oint RIGHT EYE 1 applic Q8HR [facility] Administration Heparin Sodium (Porcine) 5,000 unit 08/17/19 16:00 08/19/19 09:20 Heparin SQ 5,000 unit Q8HR [facility] Administration Hydromorphone HCl 1 mg 08/17/19 07:45 08/19/19 09:21 Dilaudid IVP 1 mg Q2HR PRN Administration Severe Pain Sodium Chloride 1,000 mls @ 130 mls/hr 08/18/19 16:15 08/19/19 07:23 Saline 0.9% IV Not Given .Q7H42M [facility] Methocarbamol 1,000 mg 08/18/19 13:00 08/19/19 09:20 Robaxin PO 1,000 mg QID [facility] Administration Metoprolol Succinate 100 mg 08/18/19 09:00 08/19/19 09:20 Toprol Xl PO 100 mg DAILY [facility] Administration Ondansetron HCl 4 mg 08/17/19 16:22 08/19/19 05:26 Zofran IVP 4 mg Q8HR PRN Administration Nausea And Vomiting Pantoprazole Sodium 40 mg 08/18/19 07:30 08/19/19 09:20 Protonix PO 40 mg [id number] [facility] Administration Tamsulosin HCl 0.4 mg 08/17/19 21:00 08/19/19 09:20 Flomax PO 0.4 mg BID [facility] Administration Intake and Output 08/18/19 08/19/19 08/19/19 22:59 06:59 14:59 Intake Total 310 Output Total 550 700 Balance -550 -390 Intake: Blood Product 310 Rc As-1 Unit 310 [id number] Rc As-3 Unit 0 [id number] Output: Urine 550 700 Other: Voiding Method Indwelling Catheter 08/19/19 09:26 08/19/19 09:26
--- NOTE | 2019-08-19 13:34 | NM ---
EXAMINATION TYPE: NM pul vent and perfuse DATE OF EXAM: 08/19/2019 COMPARISON: NONE HISTORY: Shortness of breath TECHNIQUE: Utilizing inhalation of 65.6 mCi Tc 99m DTPA aerosol and intravenous injection of 5 mCi o f Tc 99m MAA, ventilation and perfusion images are acquired post injection in multiple projections. FINDINGS: Normal radiotracer distribution is noted in the lungs. There is no evidence of mismatched defects. IMPRESSION: Normal no evidence for a pulmonary embolism.
--- NOTE | 2019-08-19 14:03 | P.PN ---
Subjective Progress Note Date: 08/19/19 POD #2 S/P right sided radical nephrectomy Hgb 9.1 from 7.7 after 2 units of blood, hemodynamically stable, Abdominal pain improving. Trops trending down. passing flatus, still complains of nausea, denies any vomiting Objective - Vital Signs Vital signs: Vital Signs Temp 99.0 F 08/19/19 07:00 Pulse 101 H 08/19/19 07:00 Resp 20 08/19/19 07:00 BP 150/76 08/19/19 07:00 Pulse Ox 91 L 08/19/19 07:00 Intake & Output 08/18/19 08/19/19 08/19/19 18:59 06:59 18:59 Intake Total 750 310 Output Total 550 700 Balance 200 -390 Intake: Intake, IV Titration 750 Amount D5-0.45% NaCl with KCl 750 20Meq/l 1,000 ml @ 125 mls/hr IV .Q8H [facility] Rx#: [id number] Blood Product 310 Rc As-1 Unit 310 [id number] Rc As-3 Unit 0 [id number] Output: Urine 550 700 Other: Voiding Method Indwelling Catheter Indwelling Catheter - Gastrointestinal General gastrointestinal: Present: distended, soft, tenderness (epigastric ) - Genitourinary Genitourinary Comment(s): ecchomyosis along the right flank - Psychiatric Psychiatric: Present: A&O x's 3 - Labs CBC & Chem 7: 08/19/19 09:26 08/19/19 09:26 Labs: Abnormal Lab Results - Last 24 Hours (Table) 08/18/19 08/18/19 08/18/19 Range/Units 15:11 15:11 15:11 WBC 11.9 H (3.8-10.6) k/uL RBC 2.56 L (4.30-5.90) m/uL Hgb 8.3 L (13.0-17.5) gm/dL Hct 26.0 L (39.0-53.0) % MCV 101.4 H (80.0-100.0) fL Neutrophils # 10.6 H (1.3-7.7) k/uL Lymphocytes # 0.6 L (1.0-4.8) k/uL Sodium 130 L (137-145) mmol/L Carbon Dioxide 20 L (22-30) mmol/L BUN 33 H (9-20) mg/dL Creatinine 1.92 H (0.66-1.25) mg/dL Glucose 170 H (74-99) mg/dL Calcium 7.6 L (8.4-10.2) mg/dL Troponin I 0.476 H* (0.000-0.034) ng/mL Crossmatch 08/18/19 08/18/19 08/18/19 Range/Units 22:14 22:14 22:14 WBC (3.8-10.6) k/uL RBC 2.27 L (4.30-5.90) m/uL Hgb 7.7 L (13.0-17.5) gm/dL Hct 23.0 L (39.0-53.0) % MCV 101.6 H (80.0-100.0) fL Neutrophils # (1.3-7.7) k/uL Lymphocytes # (1.0-4.8) k/uL Sodium (137-145) mmol/L Carbon Dioxide (22-30) mmol/L BUN (9-20) mg/dL Creatinine (0.66-1.25) mg/dL Glucose (74-99) mg/dL Calcium (8.4-10.2) mg/dL Troponin I 0.395 H* (0.000-0.034) ng/mL Crossmatch See Detail 08/19/19 08/19/19 08/19/19 Range/Units 02:47 09:26 09:26 WBC (3.8-10.6) k/uL RBC 2.46 L (4.30-5.90) m/uL Hgb 7.8 L (13.0-17.5) gm/dL Hct 24.1 L (39.0-53.0) % MCV (80.0-100.0) fL Neutrophils # (1.3-7.7) k/uL Lymphocytes # (1.0-4.8) k/uL Sodium 133 L (137-145) mmol/L Carbon Dioxide 20 L (22-30) mmol/L BUN 34 H (9-20) mg/dL Creatinine 2.12 H (0.66-1.25) mg/dL Glucose 130 H (74-99) mg/dL Calcium 7.3 L (8.4-10.2) mg/dL Troponin I 0.204 H* (0.000-0.034) ng/mL Crossmatch 08/19/19 Range/Units 09:26 WBC (3.8-10.6) k/uL RBC 2.71 L (4.30-5.90) m/uL Hgb 9.1 L (13.0-17.5) gm/dL Hct 26.4 L (39.0-53.0) % MCV (80.0-100.0) fL Neutrophils # 7.9 H (1.3-7.7) k/uL Lymphocytes # 0.4 L (1.0-4.8) k/uL Sodium (137-145) mmol/L Carbon Dioxide (22-30) mmol/L BUN (9-20) mg/dL Creatinine (0.66-1.25) mg/dL Glucose (74-99) mg/dL Calcium (8.4-10.2) mg/dL Troponin I (0.000-0.034) ng/mL Crossmatch Assessment and Plan Assessment: POD #2 S/P right sided radical nephrectomy, hgb 9.1 from 7.7 after 2 uRBC -Bed rest -NPO, if CBC at 4 pm stable then can have CLD -q8 hgb checks -f/u on Cardiology recs
[2019-08-19 16:09] LABS: Basophils % (A) 0 %; Eosinophils # (A) 0.1 k/uL (0-0.7); Eosinophils % (A) 1 %; HCT 27.2 % (39.0-53.0); HGB 9.1 gm/dL (13.0-17.5); Lymphocytes # (A) 0.4 k/uL (1.0-4.8); Lymphocytes % (A) 4 %; MCH 32.4 pg (25.0-35.0); MCHC 33.4 g/dL (31.0-37.0); Mean Platelet Volume 7.5; Monocytes # (A) 0.3 k/uL (0-1.0); Monocytes % (A) 4 %; Neutrophils # (A) 7.2 k/uL (1.3-7.7); Neutrophils % (A) 89 %; Platelet Count 178 k/uL (150-450); RDW 14.3 % (11.5-15.5)
[2019-08-19] MEDS: ATORVASTATIN 40 MG TAB PO SCH (20:53)
[2019-08-20 00:23] LABS: Basophils % (A) 0 %; Eosinophils # (A) 0.2 k/uL (0-0.7); Eosinophils % (A) 2 %; HCT 25.8 % (39.0-53.0); HGB 8.7 gm/dL (13.0-17.5); Lymphocytes # (A) 0.3 k/uL (1.0-4.8); Lymphocytes % (A) 4 %; MCH 33.1 pg (25.0-35.0); MCHC 33.8 g/dL (31.0-37.0); MCV 97.9 fL (80.0-100.0); Mean Platelet Volume 7.4; Monocytes # (A) 0.3 k/uL (0-1.0); Monocytes % (A) 3 %; Neutrophils # (A) 7.5 k/uL (1.3-7.7); Neutrophils % (A) 90 %; Platelet Count 174 k/uL (150-450); RBC 2.64 m/uL (4.30-5.90); RDW 14.1 % (11.5-15.5); WBC 8.4 k/uL (3.8-10.6)
[2019-08-20 00:47] LABS: Calcium 7.3 mg/dL (8.4-10.2); Potassium 3.8 mmol/L (3.5-5.1)
[2019-08-20] MEDS: HYDROmorphone 1 MG/ML 1 ML SYRINGE IVP PRN ×8 (03:01→22:13)
[2019-08-20] MEDS: ONDANSETRON 4 MG/2 ML VIAL IVP PRN ×4 (03:01→19:34)
[2019-08-20] MEDS: ALPRAZolam 0.25 MG TAB PO SCH ×2 (07:24→21:05)
[2019-08-20] MEDS: TAMSULOSIN 0.4 MG CAP.ER.24H PO SCH ×2 (07:25→21:05)
[2019-08-20] MEDS: methocarbamoL 500 MG TAB PO SCH ×4 (07:25→21:06)
[2019-08-20] MEDS: PANTOPRAZOLE 40 MG TABLET PO SCH (07:25)
[2019-08-20] MEDS: amLODIPine 10 MG TAB PO SCH (07:25)
[2019-08-20] MEDS: METOPROLOL SUCCINATE (ER) 100 MG TAB.ER.24H PO SCH (07:25)
[2019-08-20] MEDS: SODIUM CHLORIDE 0.9% 1,000 ML IV SCH ×3 (07:26→19:35)
[2019-08-20] MEDS: ERYTHROMYCIN 5 MG/GM OPHTH OINT 3.5 GM TUBE RIGHT EYE SCH ×3 (07:27→21:07)
--- NOTE | 2019-08-20 10:02 | P.PN ---
Progress Note - Text Progress Note Date: 08/20/19 The patient is afebrile and normotensive. His main complaint is intermittent nausea and vomiting. He says that he is had this problem for months and that he will eventually be having some sort of biliary surgery in [place]. Unfortunately at the present time he is having the nausea and vomiting even with clear liquids. He says his flank pain is minimal and his main discomfort is in the epigastric region due to vomiting. He is passing gas and has moved his bowels. He has ambulated somewhat in the room. On examination the patient's incisions are intact however there is a large amount of bruising in the right flank as expected due to a retroperitoneal bleed. Bowel sounds are present. Hemoglobin this morning is stable at 8.7. The patient's right retroperitoneal bleeding appears to have subsided. The patient says that he would like to go home but I told him that unless she is able to tolerate liquids and at least some food that this would not be at advised. The patient will temporarily be placed nothing by mouth and will be retried on liquids later in the day.
[2019-08-20 16:55] LABS: HCT 28.5 % (39.0-53.0); HGB 9.1 gm/dL (13.0-17.5); MCH 31.8 pg (25.0-35.0); MCV 99.2 fL (80.0-100.0); Mean Platelet Volume 7.5; Platelet Count 193 k/uL (150-450); RBC 2.87 m/uL (4.30-5.90); RDW 14.1 % (11.5-15.5)
[2019-08-20 17:17] LABS: Calcium 7.5 mg/dL (8.4-10.2); Magnesium 1.6 mg/dL (1.6-2.3); Potassium 3.7 mmol/L (3.5-5.1)
[2019-08-20] MEDS ORDERED: Magnesium Replacement Protocol 1 EACH MISC MISCELLANE PRN (17:25)
[2019-08-20] MEDS: MAGNESIUM SULFATE-D5W PMX 1 GM in DEXTROSE/WATER 1 100ML.BAG IVPB SCH ×2 (17:32→19:35)
--- NOTE | 2019-08-20 20:41 | PN ---
PROGRESS NOTE Known CAD status post CABG, hypertension, dyslipidemia, underwent a robotic right nephrectomy. In the postop setting, became short of breath secondary to atelectasis. EKG showed sinus tachycardia. Cardiology has been consulted for the same. This morning, patient appears comfortable at rest and is free of symptoms and had a V/Q scan that was negative for pulmonary embolism. Had an echocardiogram that showed normal LV function. EXAM: Comfortable at rest. Vital signs are stable. There is no jugular venous distention. Chest exam reveals good air entry bilaterally. Heart exam reveals first and second heart sounds. No gallop. Has a systolic murmur at the left lower sternal border. Abdomen is soft. Exam of extremities reveals mild edema. Labs show a hemoglobin of 9, platelet count is 170, potassium is 3.8, BUN is 32, creatinine is 1.9. Tropes are mildly elevated at 0.4, 0.3 and 0.2, probably from the . ASSESSMENT: 1. Status post nephrectomy. 2. Shortness of breath probably related to atelectasis, resolved. 3. Hypertension. 4. Dyslipidemia. PLAN: Patient will continue current medications. Will follow with you during his hospitalization. MMODL / IJN: [id number] /
[2019-08-20] MEDS: ATORVASTATIN 40 MG TAB PO SCH (21:06)
[2019-08-21] MEDS: HYDROmorphone 1 MG/ML 1 ML SYRINGE IVP PRN ×8 (00:20→23:11)
[2019-08-21] MEDS: SODIUM CHLORIDE 0.9% 1,000 ML IV SCH ×2 (03:10→15:16)
[2019-08-21] MEDS: ONDANSETRON 4 MG/2 ML VIAL IVP PRN ×4 (03:17→23:11)
[2019-08-21 07:23] LABS: Calcium 7.4 mg/dL (8.4-10.2); Magnesium 2.1 mg/dL (1.6-2.3); Potassium 3.4 mmol/L (3.5-5.1)
[2019-08-21 07:58] LABS: Basophils % (A) 0 %; Eosinophils % (A) 0 %; HCT 27.9 % (39.0-53.0); HGB 9.4 gm/dL (13.0-17.5); Lymphocytes # (A) 0.2 k/uL (1.0-4.8); Lymphocytes % (A) 3 %; MCH 33.2 pg (25.0-35.0); MCHC 33.8 g/dL (31.0-37.0); MCV 98.1 fL (80.0-100.0); Mean Platelet Volume 7.9; Monocytes # (A) 0.7 k/uL (0-1.0); Monocytes % (A) 12 %; Neutrophils # (A) 4.6 k/uL (1.3-7.7); Neutrophils % (A) 82 %; Platelet Count 210 k/uL (150-450); RBC 2.84 m/uL (4.30-5.90); RDW 14.4 % (11.5-15.5); WBC 5.6 k/uL (3.8-10.6)
[2019-08-21] MEDS: PANTOPRAZOLE 40 MG TABLET PO SCH (08:02)
[2019-08-21] MEDS: TAMSULOSIN 0.4 MG CAP.ER.24H PO SCH ×2 (08:02→20:24)
[2019-08-21] MEDS: METOPROLOL SUCCINATE (ER) 100 MG TAB.ER.24H PO SCH (08:03)
[2019-08-21] MEDS: methocarbamoL 500 MG TAB PO SCH ×4 (08:05→22:14)
[2019-08-21] MEDS: ALPRAZolam 0.25 MG TAB PO SCH ×2 (08:05→20:25)
[2019-08-21] MEDS: ERYTHROMYCIN 5 MG/GM OPHTH OINT 3.5 GM TUBE RIGHT EYE SCH ×3 (08:05→23:17)
[2019-08-21] MEDS: amLODIPine 10 MG TAB PO SCH (08:05)
[2019-08-21] MEDS ORDERED: Potassium Replacement Protocol 1 EACH MISC MISCELLANE PRN (09:45)
--- NOTE | 2019-08-21 09:54 | P.PN ---
Progress Note - Text Progress Note Date: 08/21/19 the patient is afebrile. Blood pressure 149/76. He says that he continues to have epigastric discomfort but denies any severe pain in the right upper quadrant or right flank. He is no longer vomiting and says that he would like to try liquids again. He says that he is passing gas. On examination the incisions are intact however there is some seeping of serosanguineous fluid from the incisions. The abdomen appears to be slightly distended with gas. Hemoglobin is 9.4 which is improved from a level of 9.1 yesterday. Bicarb is 16 and potassium is 3.4. Magnesium is normal. Calcium is 7.4. BUN/creatinine are 35/1.91 and are stable. The patient's retroperitoneal bleed appears to have stabilized. The source of the patient's nausea and bilious vomiting remains unclear. He says that he had been experiencing this prior to admission and is to be scheduled for ERCP in the near future. Patient will be started on liquids again.
[2019-08-21] MEDS: POTASSIUM CHLORIDE 10 MEQ in WATER FOR INJECTION 1 100ML.BAG IVPB SCH ×4 (10:36→17:17)
[2019-08-21] MEDS: DEXTROSE 5%-0.45% NACL 1,000 ML with SODIUM BICARB (1 MEQ/ML) 50 ML IV SCH ×4 (10:36→23:16)
[2019-08-21] MEDS: hydrALAZINE HCL 25 MG TAB PO SCH ×2 (12:25→20:25)
[2019-08-21] MEDS: ATORVASTATIN 40 MG TAB PO SCH (20:25)
[2019-08-22] MEDS: HYDROmorphone 1 MG/ML 1 ML SYRINGE IVP PRN ×10 (01:33→22:31)
[2019-08-22] MEDS: ALBUTEROL NEBULIZED 2.5 MG/3 ML INHALATION PRN ×4 (05:29→16:56)
[2019-08-22] MEDS: ERYTHROMYCIN 5 MG/GM OPHTH OINT 3.5 GM TUBE RIGHT EYE SCH ×2 (08:31→08:32)
[2019-08-22] MEDS: TAMSULOSIN 0.4 MG CAP.ER.24H PO SCH ×2 (08:51→20:01)
[2019-08-22] MEDS: METOPROLOL SUCCINATE (ER) 100 MG TAB.ER.24H PO SCH (08:51)
[2019-08-22] MEDS: POTASSIUM CHLORIDE ER 20 MEQ TAB.ER PO SCH ×4 (08:51→15:53)
[2019-08-22] MEDS: hydrALAZINE HCL 25 MG TAB PO SCH ×2 (08:51→20:01)
[2019-08-22] MEDS: methocarbamoL 500 MG TAB PO SCH ×4 (08:51→20:01)
[2019-08-22] MEDS: PANTOPRAZOLE 40 MG TABLET PO SCH (08:51)
[2019-08-22] MEDS: ALPRAZolam 0.25 MG TAB PO SCH ×2 (08:51→20:01)
[2019-08-22] MEDS: amLODIPine 10 MG TAB PO SCH (08:51)
[2019-08-22] MEDS: IOPAMIDOL CONTRAST (ORAL USE) VIAL PO PRN ×2 (12:30→13:27)
--- NOTE | 2019-08-22 12:31 | P.PN ---
Subjective Progress Note Date: 08/22/19 Still complains of nausea and upper quadrant abdominal pain. Denies any vomiting this am. Still passing flatus and having BM. Abdomen distended with reteroperitoneal bruising Objective - Vital Signs Vital signs: Vital Signs Temp 98 F 08/22/19 07:00 Pulse 95 08/22/19 12:19 Resp 18 08/22/19 07:00 BP 122/73 08/22/19 10:20 Pulse Ox 95 08/22/19 07:00 Intake & Output 08/21/19 08/22/19 08/22/19 18:59 06:59 18:59 Intake Total 900 450 Output Total 425 Balance 900 25 Weight 96.1 kg Intake: Intake, IV Titration 900 450 Amount Dextrose 5%-0.45% NaCl 1, 150 450 000 ml @ 75 mls/hr IV . Q14H [facility] with Sodium Bicarb (1 Meq/ml) 50 ml Rx#:[id number] Potassium Chloride 10 meq 100 In Water For Injection 1 100ml.bag @ 100 mls/hr IVPB Q1HR [facility] Rx#: [id number] Sodium Chloride 0.9% 1, 650 000 ml @ 130 mls/hr IV . Q7H42M [facility] Rx#:[id number] Output: Urine 425 Other: Voiding Method Urinal Urinal # Voids 2 1 1 - Gastrointestinal General gastrointestinal: Present: distended, soft, tenderness (upper quadrant ) - Integumentary Integumentary Comment(s): reteroperitoneal brusing along the right reteroperitoneum - Labs CBC & Chem 7: 08/21/19 06:47 08/22/19 11:51 Labs: Abnormal Lab Results - Last 24 Hours (Table) 08/22/19 08/22/19 Range/Units 07:38 11:51 Potassium 3.3 L 3.4 L (3.5-5.1) mmol/L Assessment and Plan Assessment: POD #5 S/P right sided radical nephrectomy, hgb 9.1 from 7.7 after 2 uRBC -keep CLD -pm labs -CT abd/pelvis w/po contrast
[2019-08-22] MEDS: DEXTROSE 5%-0.45% NACL 1,000 ML with SODIUM BICARB (1 MEQ/ML) 50 ML IV SCH ×2 (13:20)
--- NOTE | 2019-08-22 14:29 | CT ---
EXAMINATION TYPE: CT abdomen pelvis wo con DATE OF EXAM: 08/22/2019 COMPARISON: None HISTORY: Upper abdominal pain, s/p nephrectomy CT DLP: 1559.9 mGycm Automated exposure control for dose reduction was used. TECHNIQUE: Helical acquisition from the lung bases through the pelvis following oral contrast only. FINDINGS: Lack of contrast could compromise sensitivity. There is subcutaneous emphysema extending ov er the lower right chest along the right flank over the anterior abdominal wall coursing inferiorly, some fluid density may represent some hemorrhage along the abdominal musculature. There is increased attenuation in the renal fossa consistent with retroperitoneal hemorrhage. Patient is post right neph rectomy. Patient is post median sternotomy. There are coronary artery calcifications. LUNG BASES: Right lung base shows probable atelectatic changes although there are air bronchograms, c orrelate to exclude pneumonia right greater than left, there are small pleural effusions present. AORTA: No significant abnormality is appreciated. LIVER/GB: No significant abnormality is appreciated. PANCREAS: No significant abnormality is seen. SPLEEN: No significant abnormality is seen. ADRENALS: No significant abnormality is seen. KIDNEYS: No significant abnormality is seen. REPRODUCTIVE ORGANS: No significant abnormality is seen. URINARY BLADDER: No significant abnormality is seen. BOWEL: There are dilated loops of small bowel, fluid-filled with multiple air-fluid levels. The stoma ch is distended, contrast material is present within portions of the small bowel. FREE AIR: No Free Air is visible. ASCITES: None visible. PELVIC ADENOPATHY: None visualized. RETROPERITONEAL ADENOPATHY: No Retroperitoneal Adenopathy visible. OSSEOUS STRUCTURES: Degenerative disc changes are present in the visualized lumbar spine. Postop rasheed ges are noted in the lower lumbar spine status post laminectomies. Anterolisthesis grade 1 L4-5, retr olisthesis grade 1 L5-S1. IMPRESSION: RETROPERITONEAL HEMORRHAGE STATUS POST RIGHT NEPHRECTOMY. SEQUELA OF PATIENT'S SURGERY INCLUDING SUBC UTANEOUS EMPHYSEMA, ILEUS SUSPECTED RATHER THAN BOWEL OBSTRUCTION, FOLLOW-UP INDICATED, CORRELATE TO EXCLUDE PNEUMONIA. THERE IS GASTRIC DISTENTION, ADDITIONAL FINDINGS ABOVE.
[2019-08-22] MEDS: ONDANSETRON 4 MG/2 ML VIAL IVP PRN (15:55)
[2019-08-22 19:41] LABS: MCH 31.4 pg (25.0-35.0); MCHC 32.4 g/dL (31.0-37.0); Mean Platelet Volume 8.9; Platelet Count 228 k/uL (150-450); RBC 3.19 m/uL (4.30-5.90); RDW 14.3 % (11.5-15.5); WBC 8.4 k/uL (3.8-10.6)
[2019-08-22 19:50] LABS: Calcium 7.6 mg/dL (8.4-10.2); Magnesium 1.8 mg/dL (1.6-2.3); Potassium 3.3 mmol/L (3.5-5.1); Total Bilirubin 1.5 mg/dL (0.2-1.3); Total Protein 5.6 g/dL (6.3-8.2)
[2019-08-22] MEDS: ATORVASTATIN 40 MG TAB PO SCH (20:01)
[2019-08-22] MEDS: POTASSIUM CHLORIDE 10 MEQ in WATER FOR INJECTION 1 100ML.BAG IVPB SCH ×3 (20:08→23:31)
[2019-08-22] MEDS: MAGNESIUM SULFATE-D5W PMX 1 GM in DEXTROSE/WATER 1 100ML.BAG IVPB SCH (22:31)
[2019-08-22 22:57] LABS: Band Neutrophils % 39 %; Lymphocytes # (M) 0.76 k/uL (1.0-4.8); Monocytes # (M) 1.01 k/uL (0-1.0); Neutrophils % (M) 41 %; Nucleated Red Blood Cells 0 /100 WBC (0-0); Total Cells Counted 200
[2019-08-22 22:58] LABS: Anisocytosis (M) Present; Polychromasia Present
[2019-08-22 22:59] LABS: Large Platelets Present
[2019-08-23] MEDS: MAGNESIUM SULFATE-D5W PMX 1 GM in DEXTROSE/WATER 1 100ML.BAG IVPB SCH (00:41)
[2019-08-23] MEDS: HYDROmorphone 1 MG/ML 1 ML SYRINGE IVP PRN ×7 (00:41→21:00)
[2019-08-23] MEDS: ERYTHROMYCIN 5 MG/GM OPHTH OINT 3.5 GM TUBE RIGHT EYE SCH ×3 (01:33→10:06)
[2019-08-23] MEDS: POTASSIUM CHLORIDE 10 MEQ in WATER FOR INJECTION 1 100ML.BAG IVPB SCH (01:56)
[2019-08-23] MEDS: DEXTROSE 5%-0.45% NACL 1,000 ML with SODIUM BICARB (1 MEQ/ML) 50 ML IV SCH ×2 (04:41)
[2019-08-23 07:42] LABS: Magnesium 2.3 mg/dL (1.6-2.3); Potassium 3.6 mmol/L (3.5-5.1)
[2019-08-23] MEDS: D5-0.45% NACL WITH KCL 20MEQ/L 1,000 ML IV SCH ×3 (08:58→20:59)
[2019-08-23] MEDS: PANTOPRAZOLE 40 MG TABLET PO SCH (08:59)
[2019-08-23] MEDS: hydrALAZINE HCL 25 MG TAB PO SCH ×2 (08:59→20:59)
[2019-08-23] MEDS: ALPRAZolam 0.25 MG TAB PO SCH ×2 (08:59→20:59)
[2019-08-23] MEDS: amLODIPine 10 MG TAB PO SCH (08:59)
[2019-08-23] MEDS: methocarbamoL 500 MG TAB PO SCH ×4 (09:00→22:03)
[2019-08-23] MEDS: TAMSULOSIN 0.4 MG CAP.ER.24H PO SCH ×2 (09:00→20:59)
[2019-08-23] MEDS: METOPROLOL SUCCINATE (ER) 100 MG TAB.ER.24H PO SCH (09:00)
--- NOTE | 2019-08-23 09:23 | P.PN ---
Subjective Progress Note Date: 08/23/19 NGT put out over 6 L of billious output, abdominal pain and distension significantly improved compared to yesterday. has not passed flatus since yesterday Objective - Vital Signs Vital signs: Vital Signs Temp 98.3 F 08/23/19 07:00 Pulse 90 08/23/19 07:00 Resp 18 08/23/19 07:00 BP 119/72 08/23/19 07:00 Pulse Ox 94 L 08/23/19 07:00 Intake & Output 08/22/19 08/23/19 08/23/19 18:59 06:59 18:59 Intake Total 600 Output Total 3025 3900 Balance -3025 -3300 Intake: Intake, IV Titration 600 Amount Dextrose 5%-0.45% NaCl 1, 600 000 ml @ 75 mls/hr IV . Q14H [facility] with Sodium Bicarb (1 Meq/ml) 50 ml Rx#:[id number] Output: Gastric Drainage 3025 3350 Urine 550 Other: Voiding Method Urinal # Voids 1 1 - Gastrointestinal General gastrointestinal: Present: distended, soft. Absent: tenderness - Psychiatric Psychiatric: Present: A&O x's 3 - Labs CBC & Chem 7: 08/22/19 19:28 08/23/19 07:05 Labs: Abnormal Lab Results - Last 24 Hours (Table) 08/22/19 08/22/19 08/22/19 Range/Units 11:51 19:28 19:28 RBC 3.19 L (4.30-5.90) m/uL Hgb 10.0 L (13.0-17.5) gm/dL Hct 31.0 L (39.0-53.0) % Lymphocytes # (Manual) 0.76 L (1.0-4.8) k/uL Monocytes # (Manual) 1.01 H (0-1.0) k/uL Sodium 131 L (137-145) mmol/L Potassium 3.4 L 3.3 L (3.5-5.1) mmol/L Carbon Dioxide 16 L (22-30) mmol/L BUN 41 H (9-20) mg/dL Creatinine 2.16 H (0.66-1.25) mg/dL Glucose 177 H (74-99) mg/dL Calcium 7.6 L (8.4-10.2) mg/dL Total Bilirubin 1.5 H (0.2-1.3) mg/dL Total Protein 5.6 L (6.3-8.2) g/dL Albumin 3.0 L (3.5-5.0) g/dL Assessment and Plan Assessment: POD #6 S/P right sided radical nephrectomy, post op course complicated by reteroperitoneal bleed and ileus -keep NPO, Keep NGT in place -F/U on general surgery recs -ambulate -pm labs
--- NOTE | 2019-08-23 10:18 | P.GSCN ---
History of Present Illness Consult date: 08/23/19 Reason for Consult: Ileus History of present illness: This a 69-year-old male who underwent recent laparoscopic right radical nephrectomy. Patient developed a postoperative hemorrhage in the retroperitoneum. He then developed abdominal distention swelling. His CAT scan shows evidence of an ileus. Patient had nasogastric tube placed last night. Apparently had 6 L aspirated from his NG tube. Patient states feels better this morning Past Medical History Past Medical History: Coronary Artery Disease (CAD), Cancer, GERD/Reflux, Hyperlipidemia, Hypertension, Prostate Disorder Additional Past Medical History / Comment(s): hx bleeding ulcer, bladder cancer, prostate cancer(radiation 2019), constipation, dilated bile duct, History of Any Multi-Drug Resistant Organisms: None Reported Past Surgical History: Back Surgery, Bladder Surgery, Coronary Bypass/CABG, Heart Catheterization, Joint Replacement, Orthopedic Surgery, Tonsillectomy Additional Past Surgical History / Comment(s): CABG (quad)1998, rt knee replacement, sonja shoulder rotator cuff, neck fusion(no limitations in neck movement), lumbar laminectomy, 4 bladder surgeries to remove tumors Past Anesthesia/Blood Transfusion Reactions: No Reported Reaction Past Psychological History: Anxiety Smoking Status: Former smoker Past Alcohol Use History: Daily Additional Past Alcohol Use History / Comment(s): quit smoking 1998, smoked for 20 yrs, 1 PPD, 2 alcohol drinks daily Past Drug Use History: None Reported - Past Family History Mother Family Medical History: No Reported History Medications and Allergies Home Medications Medication Instructions Recorded Confirmed Type ALPRAZolam [Xanax] 0.25 mg PO BID 10/21/18 08/17/19 History Atorvastatin [Lipitor] 40 mg PO HS 10/21/18 08/17/19 History Hydrocodone/Acetaminophen [[place] 1 tab PO Q4H PRN 10/21/18 08/17/19 History 10-325] Tamsulosin HCl [Flomax] 0.4 mg PO BID 10/21/18 08/17/19 History amLODIPine [Norvasc] 10 mg PO DAILY 10/21/18 08/17/19 History Metoprolol Succinate [Toprol XL] 100 mg PO DAILY 08/15/19 08/17/19 History Omeprazole 20 mg PO DAILY 08/15/19 08/17/19 History Ondansetron HCl [Zofran] 4 mg PO Q6HR PRN 08/15/19 08/17/19 History Potassium Chloride ER [K-Dur 20] 20 meq PO BID 08/15/19 08/17/19 History Allergies Allergy/AdvReac Type Severity Reaction Status Date / Time Penicillins Allergy Rash/Hives Verified 08/17/19 06:56 Surgical - Exam Vital Signs Temp Pulse Resp BP Pulse Ox 97.6 F 63 16 139/68 95 08/17/19 06:53 08/17/19 06:53 08/17/19 06:53 08/17/19 06:53 08/17/19 06:53 - General well developed, no distress - Eyes PERRL - ENT normal pinna - Neck no masses - Respiratory normal expansion - Cardiovascular Rhythm: regular - Abdomen Multiple laparoscopic incisions Abdomen: soft Results - Labs 08/22/19 19:28 08/23/19 07:05 Abnormal Lab Results - Last 24 Hours (Table) 08/22/19 08/22/19 08/22/19 Range/Units 11:51 19:28 19:28 RBC 3.19 L (4.30-5.90) m/uL Hgb 10.0 L (13.0-17.5) gm/dL Hct 31.0 L (39.0-53.0) % Lymphocytes # (Manual) 0.76 L (1.0-4.8) k/uL Monocytes # (Manual) 1.01 H (0-1.0) k/uL Sodium 131 L (137-145) mmol/L Potassium 3.4 L 3.3 L (3.5-5.1) mmol/L Carbon Dioxide 16 L (22-30) mmol/L BUN 41 H (9-20) mg/dL Creatinine 2.16 H (0.66-1.25) mg/dL Glucose 177 H (74-99) mg/dL Calcium 7.6 L (8.4-10.2) mg/dL Total Bilirubin 1.5 H (0.2-1.3) mg/dL Total Protein 5.6 L (6.3-8.2) g/dL Albumin 3.0 L (3.5-5.0) g/dL Diabetes panel 08/22/19 08/22/19 08/23/19 Range/Units 11:51 19:28 07:05 Sodium 131 L (137-145) mmol/L Potassium 3.4 L 3.3 L 3.6 (3.5-5.1) mmol/L Chloride 100 (98-107) mmol/L Carbon Dioxide 16 L (22-30) mmol/L BUN 41 H (9-20) mg/dL Creatinine 2.16 H (0.66-1.25) mg/dL Glucose 177 H (74-99) mg/dL Calcium 7.6 L (8.4-10.2) mg/dL AST 28 (17-59) U/L ALT 27 (4-49) U/L Alkaline Phosphatase 51 (38-126) U/L Total Protein 5.6 L (6.3-8.2) g/dL Albumin 3.0 L (3.5-5.0) g/dL Calcium panel 08/22/19 Range/Units 19:28 Calcium 7.6 L (8.4-10.2) mg/dL Albumin 3.0 L (3.5-5.0) g/dL Pituitary panel 08/22/19 08/22/19 08/23/19 Range/Units 11:51 19:28 07:05 Sodium 131 L (137-145) mmol/L Potassium 3.4 L 3.3 L 3.6 (3.5-5.1) mmol/L Chloride 100 (98-107) mmol/L Carbon Dioxide 16 L (22-30) mmol/L BUN 41 H (9-20) mg/dL Creatinine 2.16 H (0.66-1.25) mg/dL Glucose 177 H (74-99) mg/dL Calcium 7.6 L (8.4-10.2) mg/dL Adrenal panel 08/22/19 08/22/19 08/23/19 Range/Units 11:51 19:28 07:05 Sodium 131 L (137-145) mmol/L Potassium 3.4 L 3.3 L 3.6 (3.5-5.1) mmol/L Chloride 100 (98-107) mmol/L Carbon Dioxide 16 L (22-30) mmol/L BUN 41 H (9-20) mg/dL Creatinine 2.16 H (0.66-1.25) mg/dL Glucose 177 H (74-99) mg/dL Calcium 7.6 L (8.4-10.2) mg/dL Total Bilirubin 1.5 H (0.2-1.3) mg/dL AST 28 (17-59) U/L ALT 27 (4-49) U/L Alkaline Phosphatase 51 (38-126) U/L Total Protein 5.6 L (6.3-8.2) g/dL Albumin 3.0 L (3.5-5.0) g/dL Assessment and Plan Assessment: Ileus. Patient will continue NG tube aspiration. He's had some small flatus. I recommend keep the NG tube today and consider trial of NG tube removal tomorrow.
[2019-08-23 10:52] LABS: Albumin 2.5 g/dL (3.5-5.0); Calcium 7.6 mg/dL (8.4-10.2); Potassium 3.6 mmol/L (3.5-5.1); Total Bilirubin 1.3 mg/dL (0.2-1.3); Total Protein 5.1 g/dL (6.3-8.2)
[2019-08-23 11:46] LABS: Basophils % (A) 0 %; Eosinophils # (A) 0.1 k/uL (0-0.7); Eosinophils % (A) 1 %; HCT 29.1 % (39.0-53.0); HGB 9.8 gm/dL (13.0-17.5); Lymphocytes # (A) 0.3 k/uL (1.0-4.8); Lymphocytes % (A) 5 %; MCH 33.1 pg (25.0-35.0); MCHC 33.5 g/dL (31.0-37.0); MCV 98.7 fL (80.0-100.0); Mean Platelet Volume 8.8; Monocytes # (A) 0.6 k/uL (0-1.0); Monocytes % (A) 10 %; Neutrophils # (A) 5.3 k/uL (1.3-7.7); Neutrophils % (A) 81 %; Platelet Count 196 k/uL (150-450); RBC 2.95 m/uL (4.30-5.90); RDW 14.1 % (11.5-15.5); WBC 6.5 k/uL (3.8-10.6)
[2019-08-23] MEDS: ONDANSETRON 4 MG/2 ML VIAL IVP PRN ×2 (11:46→21:14)
[2019-08-23] MEDS: ALBUTEROL NEBULIZED 2.5 MG/3 ML INHALATION PRN (12:27)
--- NOTE | 2019-08-23 15:29 | CDI ---
Is complication of surigcal procedure Documentation Clarification Form Date: 08/23/2019 03:19:32 PM From: Kori MadirgalOnealBARNEY moise, CCDS Admit Date: 08/17/2019 06:35:00 AM Patient Name: Erickson Calhoun Visit Number: [id number] Discharge Date: ATTENTION: The Clinical Documentation Specialists (CDI) and [facility] Coding Staff appreciate your assistance in clarifying documentation. Please respond to the clarification below the line at the bottom and electronically sign. The CDI & [facility] Coding staff will review the response and follow-up if needed. Please note: Queries are made part of the Legal Health Record. If you have any questions, please contact the author of this message via ITS. Dr. Cruz Hernandez: Per the 08/22 Urology Progress Note: "POD #6 S/P right sided radical nephrectomy, post op course complicated by reteroperitoneal bleed and ileus. Patients Admitting Diagnosis: Right Renal Mass Post-Operative Diagnosis: Same Procedure performed: Robotic right radical nephrectomy History/Risk Factors: CAD status post CABG, Hypertension, Hyperlipidemia. Clinical Indicators: Presented for elective nephrectomy on 08/16. Postoperatively the patient has ABLA, Elevated troponins secondary oxygen supply demand mismatch representing a Type II OK, ROSE, a retroperitoneal bleed & an ileus. 08/21 CT Abdomen & Pelvis: Retroperitonal hemorrhage status post right nephrectomy sequela of pattien'ts surgery including subcutaneous emphysema, ileus suspected rather than bowel obstruction. Treatment Postop: IV Zofran, IV MagSulf, IV Dextrose/NaCl w/Na Bicarb, IV KCL, INH Albuterol. Consults: General Surgery 08/22: Ileus, continue NGT aspiration. In order to accurately reflect this patients severity of illness, please clarify if the patient's ileus: is a complication of surgical procedure is an expected outcome of the surgical procedure is related to co-morbid condition(s) of Other please specify: Unable to determine (Last Revision: March 2019) MTDD
[2019-08-23] MEDS: ATORVASTATIN 40 MG TAB PO SCH (20:59)
[2019-08-24] MEDS: ERYTHROMYCIN 5 MG/GM OPHTH OINT 3.5 GM TUBE RIGHT EYE SCH ×4 (00:03→23:56)
[2019-08-24] MEDS: HYDROmorphone 1 MG/ML 1 ML SYRINGE IVP PRN ×5 (00:46→19:13)
[2019-08-24] MEDS: D5-0.45% NACL WITH KCL 20MEQ/L 1,000 ML IV SCH ×4 (03:52→23:56)
[2019-08-24] MEDS: ONDANSETRON 4 MG/2 ML VIAL IVP PRN ×2 (07:07→19:14)
[2019-08-24] MEDS: PANTOPRAZOLE 40 MG TABLET PO SCH (07:16)
[2019-08-24] MEDS: ALPRAZolam 0.25 MG TAB PO SCH ×2 (07:16→20:44)
[2019-08-24] MEDS: hydrALAZINE HCL 25 MG TAB PO SCH ×2 (07:16→20:44)
[2019-08-24] MEDS: amLODIPine 10 MG TAB PO SCH (07:16)
[2019-08-24] MEDS: TAMSULOSIN 0.4 MG CAP.ER.24H PO SCH ×2 (07:17→20:44)
[2019-08-24] MEDS: methocarbamoL 500 MG TAB PO SCH ×4 (07:17→20:43)
[2019-08-24] MEDS: METOPROLOL SUCCINATE (ER) 100 MG TAB.ER.24H PO SCH (07:17)
--- NOTE | 2019-08-24 09:14 | P.PN ---
Progress Note - Text Progress Note Date: 08/24/19 Patient is resting comfortably in bed. He's had several episodes of flatus. On exam vital signs show. Abdomen soft. Patient's ileus appears to be resolving. We will DC NG tube start on clear liquids.
--- NOTE | 2019-08-24 13:00 | P.PN ---
Subjective Progress Note Date: 08/24/19 Principal diagnosis: right renal tumor passing flatus this am, NGT removed. tolerating diet. no N/V Objective - Vital Signs Vital signs: Vital Signs Temp 98.0 F 08/24/19 07:00 Pulse 87 08/24/19 07:00 Resp 17 08/24/19 07:15 BP 147/65 08/24/19 07:00 Pulse Ox 95 08/24/19 07:00 Intake & Output 08/23/19 08/24/19 08/24/19 18:59 06:59 18:59 Intake Total 2100 Output Total 2800 1600 970 Balance -2800 500 -970 Intake: Intake, IV Titration 2100 Amount D5-0.45% NaCl with KCl 2100 20Meq/l 1,000 ml @ 150 mls/hr IV .Q6H40M [facility] Rx# :[id number] Output: Gastric Drainage 2550 450 Urine 250 200 120 Emesis 950 Other 850 Other: Voiding Method Urinal Urinal Urinal - Gastrointestinal General gastrointestinal: Present: distended, soft. Absent: tenderness - Labs CBC & Chem 7: 08/23/19 09:41 08/23/19 09:41 Labs: Abnormal Lab Results - Last 24 Hours (Table) 08/23/19 Range/Units 09:41 RBC 2.95 L (4.30-5.90) m/uL Hgb 9.8 L (13.0-17.5) gm/dL Hct 29.1 L (39.0-53.0) % Lymphocytes # 0.3 L (1.0-4.8) k/uL Assessment and Plan Assessment: POD #7 S/P right sided radical nephrectomy, post op course complicated by ret eroperitoneal bleed and ileus, both resolved -F/U on general surgery recs -ambulate -Potential discharge home tomorrow if tolerating diet
[2019-08-24] MEDS ORDERED: METOCLOPRAMIDE 5 MG/ML 2 ML VIAL IVP PRN (20:41)
[2019-08-24] MEDS: ATORVASTATIN 40 MG TAB PO SCH (20:44)
[2019-08-25] MEDS: D5-0.45% NACL WITH KCL 20MEQ/L 1,000 ML IV SCH ×2 (04:56→14:30)
[2019-08-25] MEDS: HYDROmorphone 1 MG/ML 1 ML SYRINGE IVP PRN (04:59)
[2019-08-25 08:02] VITALS: BP 144/68; PULSE 96; RESP 19; TEMP 98.8
[2019-08-25] MEDS: amLODIPine 10 MG TAB PO SCH (08:21)
[2019-08-25] MEDS: ALPRAZolam 0.25 MG TAB PO SCH (08:21)
[2019-08-25] MEDS: methocarbamoL 500 MG TAB PO SCH ×2 (08:21→14:30)
[2019-08-25] MEDS: METOPROLOL SUCCINATE (ER) 100 MG TAB.ER.24H PO SCH (08:21)
[2019-08-25] MEDS: hydrALAZINE HCL 25 MG TAB PO SCH (08:21)
[2019-08-25] MEDS: PANTOPRAZOLE 40 MG TABLET PO SCH (08:22)
[2019-08-25] MEDS: TAMSULOSIN 0.4 MG CAP.ER.24H PO SCH (08:22)
[2019-08-25] MEDS: ERYTHROMYCIN 5 MG/GM OPHTH OINT 3.5 GM TUBE RIGHT EYE SCH (08:23)
--- NOTE | 2019-08-25 10:51 | P.PN ---
Progress Note - Text Progress Note Date: 08/25/19 The patient has had multiple bowel movements overnight. He has had flatus 2. On exam her lesser stable. Abdomen soft. Resolving ileus. Patient will be advanced to full liquid diet and then advance his diet as tolerated.
[2019-08-25 11:29] VITALS: BMI 32.1
--- NOTE | 2019-08-25 12:17 | P.DS ---
Providers Date of admission: 08/17/19 06:35 Attending physician: Cruz Hernandez MD Consults: 08/18/19 16:29 Consult Physician Urgent Consulting Provider: Preet Julio Consult Reason/Comments: Elevated Troponins Do you want consulting provider notified?: Yes 08/22/19 17:17 Consult Physician Routine Consulting Provider: James Muñoz Consult Reason/Comments: ileus Do you want consulting provider notified?: Yes Primary care physician: Jesus Ojeda MD Hospital Course: Mr. Calhoun is 69 yo male with hx of right sided renal tumor. He underwent robotic assisted radical nephrectomy on August 16. His post operative course was complicated by reteroperitoneal bleed which resolved with bed rest and 2 units of blood transfusion. His hgb stabalized after blood transfusion. Patient also developed ileus post operatively. NGT was placed and general surgery was counsulted NGT was removed on POD #7 and patient diet was advanced. He tolerated his diet and was passing flatus. He was discharged home on POD #8 Plan - Discharge Summary Discharge Rx Participant: No New Discharge Prescriptions: New Sennosides/Docusate Sodium [Senna Plus 8.6-50 mg Tablet] 1 each PO BID #20 tablet No Action Hydrocodone/Acetaminophen [[place] 10-325] 1 tab PO Q4H PRN PRN Reason: Pain ALPRAZolam [Xanax] 0.25 mg PO BID Tamsulosin HCl [Flomax] 0.4 mg PO BID amLODIPine [Norvasc] 10 mg PO DAILY Atorvastatin [Lipitor] 40 mg PO HS Ondansetron HCl [Zofran] 4 mg PO Q6HR PRN PRN Reason: Nausea And Vomiting Potassium Chloride ER [K-Dur 20] 20 meq PO BID Omeprazole 20 mg PO DAILY Metoprolol Succinate [Toprol XL] 100 mg PO DAILY Discharge Medication List ALPRAZolam [Xanax] 0.25 mg PO BID 10/21/18 [History] Atorvastatin [Lipitor] 40 mg PO HS 10/21/18 [History] Hydrocodone/Acetaminophen [[place] 10-325] 1 tab PO Q4H PRN 10/21/18 [History] Tamsulosin HCl [Flomax] 0.4 mg PO BID 10/21/18 [History] amLODIPine [Norvasc] 10 mg PO DAILY 10/21/18 [History] Metoprolol Succinate [Toprol XL] 100 mg PO DAILY 08/15/19 [History] Omeprazole 20 mg PO DAILY 08/15/19 [History] Ondansetron HCl [Zofran] 4 mg PO Q6HR PRN 08/15/19 [History] Potassium Chloride ER [K-Dur 20] 20 meq PO BID 08/15/19 [History] Sennosides/Docusate Sodium [Senna Plus 8.6-50 mg Tablet] 1 each PO BID #20 tablet 08/25/19 [Rx] Activity/Diet/Wound Care/Special Instructions: No heavy lifting or straining for 4 weeks You may shower, but no baths Avoid large or greasy of meals
--- NOTE | 2019-08-29 12:23 | CDI ---
Documentation Clarification Form Date: 08/29/19 From: Ale Navarrete CCS Phone: If you have a question about this query, please contact Lissy Perez, Patent Lawyer at [phone] between 8am and 5pm. Admit Date: 08/17/19 Discharge Date:08/25/19 Patient Name: Erickson Calhoun Visit Number: [id number] ATTENTION: The Clinical Documentation Specialists (CDI) and [facility] Coding Staff appreciate your assistance in clarifying documentation. Please respond to the clarification below the line at the bottom and electronically sign. The CDI & [facility] Coding staff will review the response and follow-up if needed. Please note: Queries are made part of the Legal Health Record. If you have any questions, please contact the author of this message via ITS. Dear Dr. 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 Yes No Other (please specify) Unable to determine Yes I agree with diagnosis MTDD
--- NOTE | 2019-08-29 12:31 | CDI ---
Documentation Clarification Form Date: 08/29/19 From: Ale Navarrete CCS Phone: If you have a question about this query, please contact Lissy Preez, Dentofacial Orthopedics Dentist at [phone] between 8am and 5pm. Admit Date: 08/17/19 Discharge Date:08/25/19 Patient Name: Erickson Calhoun Visit Number: [id number] ATTENTION: The Clinical Documentation Specialists (CDI) and [facility] Coding Staff appreciate your assistance in clarifying documentation. Please respond to the clarification below the line at the bottom and electronically sign. The CDI & [facility] Coding staff will review the response and follow-up if needed. Please note: Queries are made part of the Legal Health Record. If you have any questions, please contact the author of this message via ITS. Dear Dr. Hernandez, Conflicting documentation has been found in the medical record: 08/18 Consult documents: Troponin elevation likely secondary to oxygen supply demand mismatch representing a type II myocardial injury DS documents: Elevated troponins History/Risk Factors: CAD, CABG, HTN, ABLA, Ileus, Nephrectomy Clinical Indicators: Elevated troponins Treatment: Transfusion RBC In your opinion, what is the most clinically appropriate diagnosis for this patient? Elevated troponins Type II SD Other explanation of clinical findings Unable to determine (no explanation for clinical findings) Elevated Troponins MTDD
== END 2019-08-25 14:32 | disposition home or self-care (01) | DRG 657 ==
LOC: 2ORMAIN 06:35 → 4SSUR 11:03
PROVIDERS: ADMIT Urology; ATTEND Urology
PROC: 8E0W4CZ Robotic Assisted Procedure of Trunk Region, Percutaneous Endoscopic Approach (ICD-10-PCS; 2019-08-17)
PROC: 0TT04ZZ Resection of Right Kidney, Percutaneous Endoscopic Approach (ICD-10-PCS; principal; 2019-08-17 07:30)
PROC: 30233N1 Transfusion of Nonautologous Red Blood Cells into Peripheral Vein, Percutaneous Approach (ICD-10-PCS; 2019-08-18)
PROC: 0D9670Z Drainage of Stomach with Drainage Device, Via Natural or Artificial Opening (ICD-10-PCS; 2019-08-22)
DX: C64.1 Malignant neoplasm of right kidney, except renal pelvis (principal); N17.9 Acute kidney failure, unspecified; D62 Acute posthemorrhagic anemia; K91.30 Postprocedural intestinal obstruction, unspecified as to partial versus complete; J98.11 Atelectasis; N99.820 Postprocedural hemorrhage of a genitourinary system organ or structure following a genitourinary system procedure; I25.10 Atherosclerotic heart disease of native coronary artery without angina pectoris; I10 Essential (primary) hypertension; E78.5 Hyperlipidemia, unspecified; R00.0 Tachycardia, unspecified; N42.9 Disorder of prostate, unspecified; R79.89 Other specified abnormal findings of blood chemistry; K21.9 Gastro-esophageal reflux disease without esophagitis; F41.9 Anxiety disorder, unspecified; Y83.6 Removal of other organ (partial) (total) as the cause of abnormal reaction of the patient, or of later complication, without mention of misadventure at the time of the procedure; Z71.3 Dietary counseling and surveillance; Z79.899 Other long term (current) drug therapy; Z95.1 Presence of aortocoronary bypass graft; Z92.3 Personal history of irradiation; Z85.51 Personal history of malignant neoplasm of bladder; Z85.46 Personal history of malignant neoplasm of prostate; Z87.11 Personal history of peptic ulcer disease; Z98.1 Arthrodesis status; Z96.651 Presence of right artificial knee joint; Z98.890 Other specified postprocedural states; Z87.891 Personal history of nicotine dependence; Z88.0 Allergy status to penicillin
CPT/HCPCS: 36415; 71046; 74176; 78582; 80048; 80053; 83735; 84132; 84484; 85025; 85027; 86850; 86900; 86901; 86920; 88305; 88307; 93005; 93306; 94640; 94760

== ENCOUNTER 2019-08-29 22:26 | Observation (INO) | payer BC, MEDICARE ==
[2019-08-30] MEDS ORDERED: HYDROmorphone 0.5 MG/0.5 ML SYRINGE IM PRN (01:41)
[2019-08-30 02:02] LABS: Appearance,Urine Clear (Clear); Bilirubin,Urine Negative (Negative); Blood,Urine Small (Negative); Color,Urine Light Yellow; Glucose,Urine (UA) Negative (Negative); Ketones,Urine Negative (Negative); Leukocyte Esterase,Urine Negative (Negative); Nitrite,Urine Negative (Negative); PH, Urine 6.5 (5.0-8.0); Protein,Urine Trace (Negative); RBC,Urine 3 /hpf (0-5); Specific Gravity,Urine 1.008 (1.001-1.035); Squamous Epithelial Cell,Urine <1 /hpf (0-4); WBC,Urine <1 /hpf (0-5)
[2019-08-30] MEDS: SODIUM CHLORIDE 0.9% 1,000 ML IV SCH (02:07)
[2019-08-30] MEDS: ALPRAZolam 0.25 MG TAB PO PRN ×3 (02:07→21:42)
[2019-08-30] MEDS: HYDROmorphone 0.5 MG/0.5 ML SYRINGE IVP PRN ×4 (02:14→19:51)
--- NOTE | 2019-08-30 07:47 | P.GSCN ---
History of Present Illness Consult date: 08/30/19 History of present illness: 69-year-old gentleman who underwent a robotic-assisted right radical nephrectomy last week by . He had a perioperative right retroperitoneal bleed. It seemed to subside. He was discharged home late last week. He had a or weekend where he was immobilized. He had little appetite. He had swelling of the right leg and discomfort of the right leg. He was seen and [facility] last night and a computed tomography scan identified the retroperitoneal bleed seen previously as well as a possible pneumonia on the right side. He was transferred back to [facility] under the medical service has been asked to see him. I am seeing him this morning. He complains of swelling in both legs. He does have a history of coronary artery bypass graft 1998. He has no history of heart failure shortness of breath. He is not short of breath at this point in time. There is no chest pain. Both legs are swollen and there is significant ecchymosis on the right flank into the right side. His vital signs are stable and he is afebrile. Review of Systems All systems: negative - Constitutional Denies fever, Denies weight loss - EENT Eyes: denies blurred vision Ears, nose, mouth and throat: Denies dysphagia - Cardiovascular Denies chest pain, Denies shortness of breath - Respiratory Denies cough, Denies 7 - Gastrointestinal Reports as per HPI - Genitourinary Denies dysuria, Denies hematuria - Integumentary Denies rash, Denies unusual bruising - Neurological Denies headaches, Denies syncope - Hematologic/Lymphatic Denies easy bleeding, Denies easy bruising Past Medical History Past Medical History: Coronary Artery Disease (CAD), Cancer, Heart Failure, Hyperlipidemia, Hypertension, Prostate Disorder Additional Past Medical History / Comment(s): hx bleeding ulcer, bladder cancer, prostate cancer History of Any Multi-Drug Resistant Organisms: None Reported Past Surgical History: Back Surgery, Coronary Bypass/CABG, Heart Catheterization, Orthopedic Surgery, Tonsillectomy Additional Past Surgical History / Comment(s): CABG X 4, 10/1998, rt knee replacement, sonja shoulder rotator cuff, neck fusion(no limitations in neck movement), lumbar laminectomy, Past Anesthesia/Blood Transfusion Reactions: No Reported Reaction Past Psychological History: Anxiety Smoking Status: Former smoker Past Alcohol Use History: Occasional Additional Past Alcohol Use History / Comment(s): quit smoking 1998, smoked for 20 yrs, 1 PPD Past Drug Use History: None Reported - Past Family History Mother Family Medical History: No Reported History Medications and Allergies Home Medications Medication Instructions Recorded Confirmed Type ALPRAZolam [Xanax] 0.25 mg PO BID 10/21/18 08/17/19 History Atorvastatin [Lipitor] 40 mg PO HS 10/21/18 08/17/19 History Hydrocodone/Acetaminophen [[place] 1 tab PO Q4H PRN 10/21/18 08/17/19 History 10-325] Tamsulosin HCl [Flomax] 0.4 mg PO BID 10/21/18 08/17/19 History amLODIPine [Norvasc] 10 mg PO DAILY 10/21/18 08/17/19 History Metoprolol Succinate [Toprol XL] 100 mg PO DAILY 08/15/19 08/17/19 History Omeprazole 20 mg PO DAILY 08/15/19 08/17/19 History Ondansetron HCl [Zofran] 4 mg PO Q6HR PRN 08/15/19 08/17/19 History Potassium Chloride ER [K-Dur 20] 20 meq PO BID 08/15/19 08/17/19 History Sennosides/Docusate Sodium [Senna 1 each PO BID #20 tablet 08/25/19 Rx Plus 8.6-50 mg Tablet] Allergies Allergy/AdvReac Type Severity Reaction Status Date / Time Penicillins Allergy Rash/Hives Verified 08/17/19 06:56 Surgical - Exam Vital Signs Temp Pulse Resp BP Pulse Ox 98.1 F 82 14 142/78 94 L 08/30/19 00:55 08/30/19 00:55 08/30/19 00:55 08/30/19 00:55 08/30/19 00:55 - General Mild distress well developed, well nourished - Eyes PERRL - ENT no hearing loss - Neck no masses, trachea midline - Respiratory normal expansion, normal respiratory effort - Cardiovascular Rhythm: regular - Abdomen Abdomen: soft, non tender - Genitourinary normal penis with no external lesions, testicles present - Integumentary The patient has bilateral edema in the lower extremities. There is edema in the right side. There is edema in the right flank has he has ecchymosis from his retroperitoneal bleed from his surgery last week. This appears to be old bleeding. - Neurologic normal coordination, normal sensation - Musculoskeletal normal posture - Psychiatric oriented to time, oriented to person, oriented to place, speech is normal, memory intact Results - Labs Abnormal Lab Results - Last 24 Hours (Table) 08/30/19 Range/Units 01:45 Urine Protein Trace H (Negative) Urine Blood Small H (Negative) Assessment and Plan Assessment: Impression: Postoperative anasarca related to probable blood loss perhaps aggravated by cardiac disease. Pneumonia possible. Kidney cancer treated with radical nephrectomy Recommendations: The patient is being evaluated by medicine. He gets a chest x- ray today. He also a cardiac echo. He is on antibiotics. Her urologic standpoint there does not appear to be anything that needs to be done. The bleeding appears to be old. I will notify of his admission.
[2019-08-30 08:08] LABS: Basophils % (A) 0 %; Eosinophils # (A) 0.1 k/uL (0-0.7); Eosinophils % (A) 3 %; HCT 26.3 % (39.0-53.0); Lymphocytes # (A) 0.6 k/uL (1.0-4.8); Lymphocytes % (A) 11 %; MCH 33.1 pg (25.0-35.0); MCHC 34.3 g/dL (31.0-37.0); MCV 96.6 fL (80.0-100.0); Mean Platelet Volume 7.4; Monocytes # (A) 0.4 k/uL (0-1.0); Monocytes % (A) 7 %; Neutrophils # (A) 4.1 k/uL (1.3-7.7); Neutrophils % (A) 78 %; Platelet Count 298 k/uL (150-450); RBC 2.73 m/uL (4.30-5.90); RDW 14.3 % (11.5-15.5); WBC 5.3 k/uL (3.8-10.6)
[2019-08-30 08:23] LABS: Albumin 2.4 g/dL (3.5-5.0); Calcium 7.9 mg/dL (8.4-10.2); Potassium 3.9 mmol/L (3.5-5.1); Total Bilirubin 1.3 mg/dL (0.2-1.3); Total Protein 4.8 g/dL (6.3-8.2)
[2019-08-30 08:48] LABS: Poikilocytosis (M) Present
--- NOTE | 2019-08-30 08:54 | XR ---
EXAMINATION TYPE: XR chest 2V DATE OF EXAM: 08/30/2019 COMPARISON: 08/18/2019 TECHNIQUE: PA and lateral views submitted. HISTORY: Shortness of breath FINDINGS: Bilateral lower lobe infiltrate greater on the right with small right pleural effusion. Postoperative changes are seen. Biapical pleural thickening with no overt failure. No pneumothorax. IMPRESSION: 1. Bilateral lower lobe infiltrate greater on the right correlate for pneumonia.
[2019-08-30] MEDS: HYDROcodone/APAP 5-325MG 1 EACH TAB PO PRN ×2 (09:20→17:23)
[2019-08-30] MEDS: FUROSEMIDE 10 MG/ML 4 ML VIAL IV SCH (09:21)
[2019-08-30] MEDS ORDERED: ONDANSETRON 4 MG TAB PO PRN (09:52)
[2019-08-30] MEDS ORDERED: METOPROLOL SUCCINATE (ER) 100 MG TAB.ER.24H PO SCH (10:00)
[2019-08-30] MEDS ORDERED: amLODIPine 10 MG TAB PO SCH (10:00)
[2019-08-30] MEDS: PANTOPRAZOLE 40 MG TABLET PO SCH (10:18)
[2019-08-30] MEDS: TAMSULOSIN 0.4 MG CAP.ER.24H PO SCH ×2 (10:18→21:40)
[2019-08-30] MEDS ORDERED: ONDANSETRON 4 MG/2 ML VIAL IVP PRN (12:01)
--- NOTE | 2019-08-30 13:14 | ECHOF ---
Referral Reason:Swelling MEASUREMENTS -------- HEIGHT: 177.8 cm WEIGHT: 100.7 kg BP: IVSd: 1.5 cm (0.6 - 1.1) LVIDd: 4.8 cm (3.9 - 5.3) LVPWd: 1.3 cm (0.6 - 1.1) IVSs: 2.2 cm LVIDs: 3.0 cm LVPWs: 1.9 cm FINDINGS -------- Sinus rhythm. This was a technically difficult study with suboptimal views. Limited Study The left ventricular size is normal. There is moderate concentric left ventricular hypertrophy. O verall left ventricular systolic function is normal with, an EF between 55 - 60 %. The left atrium was not well visualized. The right atrium was not well visualized. xx ml of Lumason was utilized for enhancement of images. There is no pericardial effusion. CONCLUSIONS -------- 1. This was a technically difficult study with suboptimal views. 2. Limited Study 3. There is moderate concentric left ventricular hypertrophy. 4. Overall left ventricular systolic function is normal with, an EF between 55 - 60 %. 5. xx ml of Lumason was utilized for enhancement of images. 6. There is no pericardial effusion. DIESEL MAINTENANCE ELECTRICIAN: Chelly Barber RDCS
--- NOTE | 2019-08-30 14:12 | US ---
EXAMINATION TYPE: US venous doppler duplex LE BI DATE OF EXAM: 08/30/2019 1:42 PM COMPARISON: NONE CLINICAL HISTORY: r/o DVT. edema bilateral legs, pain right leg SIDE PERFORMED: Bilateral TECHNIQUE: The lower extremity deep venous system is examined utilizing real time linear array sonog [place] with graded compression, doppler sonography and color-flow sonography. VESSELS IMAGED: External Iliac Vein (EIV) Common Femoral Vein Deep Femoral Vein Greater Saphenous Vein * Femoral Vein Popliteal Vein Small Saphenous Vein * Proximal Calf Veins (* superficial vessels) Right Leg: no evidence of DVT Left Leg: no evidence of DVT IMPRESSION: 1. No diagnostic evidence of DVT as visualized
[2019-08-30] MEDS: hydrALAZINE HCL 50 MG TAB PO SCH ×2 (15:20→21:39)
--- NOTE | 2019-08-30 16:58 | P.HPIM ---
History of Present Illness 71-year-old a present [facility] because of lower leg edema. Patient had right radical nephrectomy for mass lesion about a week ago postoperatively patient had right retroperitoneal bleed. Postoperatively patient did well was subsequently discharged patient had a CAT scan of the abdomen which showed possible pneumonia although patient denied any fever chills patient doesn't have any leukocytosis patient denied any significant cough chest x-ray was reviewed by me although I cannot open the CAT scan images chest x-ray appears to have some atelectasis no clear evidence of pneumonia at this time patient denied any shortness of breath orthopnea paroxysmal nocturnal dyspnea patient's clinical symptomatology is not consistent with heart failure patient is on amlodipine leading to bilateral lower limbs edema particularly ankles and below patient does have ecchymosis in the right flank and right thigh area.patient was also complaining of pain in the right posterior hip area. patient was started on 40 mg of IV Lasix here present for pedal edema patient was hyponatremic on admission which actually improved with IV Lasix. Patient probably has hypovolemic hyponatremia. IV Lasix will be continued for today.bilateral lower limb Doppler was ordered which did not show any DVT echo cardiac and did not show any heart failure. Patient clinically doesn't have any heart failure either Review of Systems REVIEW OF SYSTEMS: CONSTITUTIONAL: No fever, no malaise, no fatigue. HEENT: No recent visual problems or hearing problems. Denied any sore throat. CARDIOVASCULAR: No chest pain, orthopnea, PND, no palpitations, no syncope. PULMONARY: No shortness of breath, no cough, no hemoptysis. GASTROINTESTINAL: No diarrhea, no nausea, no vomiting, no abdominal pain. NEUROLOGICAL: No headaches, no weakness, no numbness. HEMATOLOGICAL: Denies any bleeding or petechiae. GENITOURINARY: Denies any burning micturition, frequency, or urgency. MUSCULOSKELETAL/RHEUMATOLOGICAL: Denies any joint pain, swelling, or any muscle pain. ENDOCRINE: Denies any polyuria or polydipsia. The rest of the 14-point review of systems is negative. Past Medical History Past Medical History: Coronary Artery Disease (CAD), Cancer, Heart Failure, Hyperlipidemia, Hypertension, Prostate Disorder Additional Past Medical History / Comment(s): hx bleeding ulcer, bladder cancer, prostate cancer History of Any Multi-Drug Resistant Organisms: None Reported Past Surgical History: Back Surgery, Coronary Bypass/CABG, Heart Catheterization, Orthopedic Surgery, Tonsillectomy Additional Past Surgical History / Comment(s): CABG X 4, 10/1998, rt knee replacement, sonja shoulder rotator cuff, neck fusion(no limitations in neck movement), lumbar laminectomy, Past Anesthesia/Blood Transfusion Reactions: No Reported Reaction Past Psychological History: Anxiety Smoking Status: Former smoker Past Alcohol Use History: Occasional Additional Past Alcohol Use History / Comment(s): quit smoking 1998, smoked for 20 yrs, 1 PPD Past Drug Use History: None Reported - Past Family History Mother Family Medical History: No Reported History Medications and Allergies Home Medications Medication Instructions Recorded Confirmed Type ALPRAZolam [Xanax] 0.25 mg PO BID 10/21/18 08/30/19 History Atorvastatin [Lipitor] 40 mg PO HS 10/21/18 08/30/19 History Hydrocodone/Acetaminophen [[place] 1 tab PO Q4H PRN 10/21/18 08/30/19 History 10-325] Tamsulosin HCl [Flomax] 0.4 mg PO BID 10/21/18 08/30/19 History amLODIPine [Norvasc] 10 mg PO DAILY 10/21/18 08/30/19 History Metoprolol Succinate [Toprol XL] 100 mg PO DAILY 08/15/19 08/30/19 History Omeprazole 20 mg PO DAILY 08/15/19 08/30/19 History Ondansetron HCl [Zofran] 4 mg PO Q6HR PRN 08/15/19 08/30/19 History Potassium Chloride ER [K-Dur 20] 20 meq PO BID 08/15/19 08/30/19 History Sennosides/Docusate Sodium [Senna 1 tab PO BID 08/30/19 08/30/19 History Plus 8.6-50 mg Tablet] Allergies Allergy/AdvReac Type Severity Reaction Status Date / Time Penicillins Allergy Rash/Hives Verified 08/30/19 08:30 Physical Exam Vitals: Vital Signs Temp Pulse Resp BP Pulse Ox 08/30/19 15:00 98.1 F 84 17 121/72 95 08/30/19 07:00 97.8 F 89 18 150/80 95 08/30/19 00:55 98.1 F 82 14 142/78 94 L Intake and Output 08/30/19 08/30/19 08/30/19 06:59 14:59 22:59 Intake Total 60 540 Output Total 300 1550 Balance -240 -1010 Intake: Intake, IV Titration 60 Amount Sodium Chloride 0.9% 1, 60 000 ml @ 20 mls/hr IV . Q24H [facility] Rx#:[id number] Oral 540 Output: Urine 300 1350 Post Void Residual 200 Other: Voiding Method Urinal Urinal Urinal # Voids 10 3 Weight 101.1 kg PHYSICAL EXAMINATION: GENERAL: The patient is alert and oriented x3, not in any acute distress. Well developed, well nourished. HEENT: Pupils are round and equally reacting to light. EOMI. No scleral icterus. No conjunctival pallor. Normocephalic, atraumatic. No pharyngeal erythema. No thyromegaly. CARDIOVASCULAR: S1 and S2 present. No murmurs, rubs, or gallops. PULMONARY: Chest is clear to auscultation, no wheezing or crackles. ABDOMEN: Soft, nontender, nondistended, normoactive bowel sounds. No palpable organomegaly. MUSCULOSKELETAL: No joint swelling or deformity. EXTREMITIES: No cyanosis, clubbing,does have bilateral pedal edema extending ankle and below NEUROLOGICAL: Gross neurological examination did not reveal any focal deficits. SKIN: patient has ecchymosis in the right flank area extending up to the thigh Results CBC & Chem 7: 08/30/19 07:20 08/30/19 07:20 Labs: Abnormal Lab Results - Last 24 Hours (Table) 08/30/19 08/30/19 08/30/19 Range/Units 01:45 07:20 07:20 RBC 2.73 L (4.30-5.90) m/uL Hgb 9.0 L (13.0-17.5) gm/dL Hct 26.3 L (39.0-53.0) % Lymphocytes # 0.6 L (1.0-4.8) k/uL Sodium 132 L (137-145) mmol/L BUN 25 H (9-20) mg/dL Creatinine 1.39 H (0.66-1.25) mg/dL Glucose 102 H (74-99) mg/dL Calcium 7.9 L (8.4-10.2) mg/dL Total Protein 4.8 L (6.3-8.2) g/dL Albumin 2.4 L (3.5-5.0) g/dL Urine Protein Trace H (Negative) Urine Blood Small H (Negative) Thrombosis Risk Factor Assmnt - Choose All That Apply Each Factor Represents 1 point: History of prior major surgery (<1month) Each Risk Factor Represents 2 Points: Age 61-74 years Thrombosis Risk Factor Assessment Total Risk Factor Score: 3 Thrombosis Risk Factor Assessment Level: Moderate Risk Assessment and Plan Plan: -hyponatremia hypervolemic hyponatremia from peripheral edema. Improved with IV Lasix which will be continued patient will not require any IV Lasix upon discharge -Elevated creatinine chronic kidney disease secondary to nephrectomy patient appears to have chronic kidney disease stage III -Ruled out heart failure -Ruled out DVT -Ruled out that pneumonia patient doesn't have any clinical evidence of pneumonia patient will be monitored for any fever or leukocytosis patient does have atelectasis will order incentive spirometry -Bilateral pedal edema: Secondary to amlodipine amlodipine will be discontinued and started patient will be switched to Coreg from metoprolol for better blood pressure control and patient was started on hydralazine as well -carotid artery disease Hyperlipidemia -Hypertension -prostate cancer in the past For above-mentioned chronic medical problems patient the will be resumed and continued on appropriate home medications
[2019-08-30] MEDS ORDERED: ATORVASTATIN 40 MG TAB PO SCH (21:00)
[2019-08-30] MEDS: POTASSIUM CHLORIDE ER 20 MEQ TAB.ER PO SCH (21:39)
[2019-08-30] MEDS: SENNOSIDES-DOCUSATE SODIUM 1 EACH TAB PO SCH (21:40)
[2019-08-31] MEDS: HYDROmorphone 0.5 MG/0.5 ML SYRINGE IVP PRN ×2 (01:04→05:29)
[2019-08-31] MEDS: SODIUM CHLORIDE 0.9% 1,000 ML IV SCH (04:39)
[2019-08-31] MEDS ORDERED: carvediloL 12.5 MG TAB PO SCH (07:30)
[2019-08-31] MEDS: TAMSULOSIN 0.4 MG CAP.ER.24H PO SCH (08:34)
[2019-08-31] MEDS: hydrALAZINE HCL 50 MG TAB PO SCH ×2 (08:34→15:09)
[2019-08-31] MEDS: PANTOPRAZOLE 40 MG TABLET PO SCH (08:34)
[2019-08-31] MEDS: SENNOSIDES-DOCUSATE SODIUM 1 EACH TAB PO SCH (08:34)
[2019-08-31] MEDS: POTASSIUM CHLORIDE ER 20 MEQ TAB.ER PO SCH (08:34)
[2019-08-31] MEDS: FUROSEMIDE 10 MG/ML 4 ML VIAL IV SCH (08:34)
[2019-08-31] MEDS: ALPRAZolam 0.25 MG TAB PO PRN (08:38)
[2019-08-31 09:46] LABS: HCT 27.6 % (39.0-53.0); HGB 9.4 gm/dL (13.0-17.5); MCV 97.1 fL (80.0-100.0); Mean Platelet Volume 7.3; Platelet Count 360 k/uL (150-450); RBC 2.84 m/uL (4.30-5.90); RDW 14.5 % (11.5-15.5); WBC 6.4 k/uL (3.8-10.6)
[2019-08-31] MEDS ORDERED: HYDROmorphone 0.5 MG/0.5 ML SYRINGE ONE (09:52)
[2019-08-31 09:54] LABS: Calcium 8.1 mg/dL (8.4-10.2)
[2019-08-31] MEDS: HYDROcodone/APAP 5-325MG 1 EACH TAB PO PRN (15:34)
[2019-08-31] MEDS ORDERED: METOPROLOL TARTRATE 12.5 MG TAB ONE (22:05)
[2019-08-31] MEDS ORDERED: ACETAMINOPHEN TAB 325 MG TAB ONE (22:06)
[2019-08-31] MEDS ORDERED: HEPARIN SODIUM,PORCINE 5,000 UNIT/ML 1 ML VIAL ONE (22:06)
--- NOTE | 2019-08-31 22:19 | P.DS ---
Providers Date of admission: 08/30/19 00:41 Expected date of discharge: 08/31/19 Attending physician: Genny Dominguez Consults: 08/30/19 00:41 Consult Physician Routine Consulting Provider: Ham Liu Consult Reason/Comments: Post Right Nephrectomy 08/17/19 Do you want consulting provider notified?: Yes, Notify in am 08/30/19 06:30 Consult Physician Routine Consulting Provider: Genny Dominguez Consult Reason/Comments: DR. Dobbs Do you want consulting provider notified?: Yes, Notify in am Placement Type Exists?: Yes Primary care physician: Genny Dominguez [facility] Course: Final diagnosis -hyponatremia hypervolemic hyponatremia from peripheral edema, improved -Elevated creatinine chronic kidney disease secondary to nephrectomy patient appears to have chronic kidney disease stage III -Ruled out heart failure -Ruled out DVT -Ruled out that pneumonia patient does have atelectasis -Bilateral pedal edema Secondary to amlodipine -carotid artery disease -Hyperlipidemia -Hypertension -prostate cancer in the past Discharge disposition Patient is being discharged home in stable condition with guarded prognosis. Patient will follow up with urology and primary care provider in the outpatient setting History of present illness 71-year-old male transferred from [facility] because of lower leg edema. Patient had right radical nephrectomy for mass lesion about a week ago postoperatively patient had right retroperitoneal bleed. Postoperatively patient did well was subsequently discharged patient had a CAT scan of the abdomen which showed possible pneumonia although patient denied any fever chills patient doesn't have any leukocytosis patient denied any significant cough chest x-ray was reviewed by me although I cannot open the CAT scan images chest x-ray appears to have some atelectasis no clear evidence of pneumonia at this time patient denied any shortness of breath orthopnea paroxysmal nocturnal dyspnea patient's clinical symptomatology is not consistent with heart failure patient is on amlodipine leading to bilateral lower limbs edema particularly ankles and below patient does have ecchymosis in the right flank and right thigh area.patient was also complaining of pain in the right posterior hip area. patient was started on 40 mg of IV Lasix here present for pedal edema patient was hyponatremic on admission which actually improved with IV Lasix. Patient probably has hypovolemic hyponatremia. IV Lasix will be continued for today.bilateral lower limb Doppler was ordered which did not show any DVT echo cardiac and did not show any heart failure. Patient clinically doesn't have any heart failure either 08/31/2019 Patient continues to have pain of the right lower extremity. Patients b/l lower extremity swelling has improved. Patient will be going home today. Patient to follow up with primary care provider and urology in the outpatient setting. Patient instructed to continue using incentive spirometer at least 10 times every hour while awake. On exam, vital signs are stable. Patient medications have been adjusted. Please refer to medication reconciliation sheet for a list of medications. Patient Condition at Discharge: Fair Plan - Discharge Summary New Discharge Prescriptions: No Action Hydrocodone/Acetaminophen [[place] 10-325] 1 tab PO Q4H PRN PRN Reason: Pain ALPRAZolam [Xanax] 0.25 mg PO BID Tamsulosin HCl [Flomax] 0.4 mg PO BID amLODIPine [Norvasc] 10 mg PO DAILY Atorvastatin [Lipitor] 40 mg PO HS Ondansetron HCl [Zofran] 4 mg PO Q6HR PRN PRN Reason: Nausea And Vomiting Potassium Chloride ER [K-Dur 20] 20 meq PO BID Omeprazole 20 mg PO DAILY Metoprolol Succinate [Toprol XL] 100 mg PO DAILY Sennosides/Docusate Sodium [Senna Plus 8.6-50 mg Tablet] 1 tab PO BID Discharge Medication List ALPRAZolam [Xanax] 0.25 mg PO BID 10/21/18 [History] Atorvastatin [Lipitor] 40 mg PO HS 10/21/18 [History] Hydrocodone/Acetaminophen [[place] 10-325] 1 tab PO Q4H PRN 10/21/18 [History] Tamsulosin HCl [Flomax] 0.4 mg PO BID 10/21/18 [History] amLODIPine [Norvasc] 10 mg PO DAILY 10/21/18 [History] Metoprolol Succinate [Toprol XL] 100 mg PO DAILY 08/15/19 [History] Omeprazole 20 mg PO DAILY 08/15/19 [History] Ondansetron HCl [Zofran] 4 mg PO Q6HR PRN 08/15/19 [History] Potassium Chloride ER [K-Dur 20] 20 meq PO BID 08/15/19 [History] Sennosides/Docusate Sodium [Senna Plus 8.6-50 mg Tablet] 1 tab PO BID 08/30/19 [History] Follow up Appointment(s)/Referral(s): Cruz Hernandez MD [STAFF PHYSICIAN] - 09/01/19 8:40 am () Patient Instructions/Handouts: Hydralazine (By mouth), Carvedilol (By mouth), Pain Management (DC), Leg Edema (ED) Activity/Diet/Wound Care/Special Instructions: STOP TAKING METOPROLOL AND STOP TAKING NORVASC FILL NEW PRESCRIPTIONS FOR COREG AND HYDRALAZINE. Discharge Disposition: HOME SELF-CARE
[2019-09-02 08:26] VITALS: BP 115/74; PULSE 88; RESP 16; TEMP 97.4
== END 2019-08-31 15:51 | disposition home or self-care (01) ==
LOC: 4SSUR 08-30 00:41 → INTOOBSV 08-30 00:41 → UNDODISIN 08-31 15:51
PROVIDERS: ADMIT Hospitalist; ATTEND Hospitalist
DX: E87.1 Hypo-osmolality and hyponatremia (principal); R60.0 Localized edema; T46.1X5A Adverse effect of calcium-channel blockers, initial encounter; C64.9 Malignant neoplasm of unspecified kidney, except renal pelvis; Z90.5 Acquired absence of kidney; I12.9 Hypertensive chronic kidney disease with stage 1 through stage 4 chronic kidney disease, or unspecified chronic kidney disease; N18.3 Chronic kidney disease, stage 3 (moderate); J98.11 Atelectasis; E78.5 Hyperlipidemia, unspecified; I25.10 Atherosclerotic heart disease of native coronary artery without angina pectoris; F41.9 Anxiety disorder, unspecified; S30.1XXA Contusion of abdominal wall, initial encounter; M79.604 Pain in right leg; Z88.0 Allergy status to penicillin; Z79.891 Long term (current) use of opiate analgesic; Z79.899 Other long term (current) drug therapy; Z95.1 Presence of aortocoronary bypass graft; Z85.46 Personal history of malignant neoplasm of prostate; Z85.51 Personal history of malignant neoplasm of bladder; Z96.651 Presence of right artificial knee joint; Z98.1 Arthrodesis status; Z87.891 Personal history of nicotine dependence; Z98.890 Other specified postprocedural states
CPT/HCPCS: 96376 ×2; 96374; 96375 ×2; 93308; 93005; 80053; 80048; 85025; 85027; 81001; 71046; 93970; G0378 ×2; G0379; J1940 ×2; J2405; J1170 ×2; Q9950

== ENCOUNTER → 2019-11-23 | Outpatient (CLI) | payer BC ==
--- NOTE | 2019-11-23 15:25 | CT ---
EXAMINATION TYPE: CT abdomen pelvis wo con DATE OF EXAM: 11/23/2019 HISTORY: Right side abdominal pain post right nephrectomy CT DLP: 1018 mGycm. Automated Exposure Control for Dose Reduction was Utilized. TECHNIQUE: CT scan of the abdomen and pelvis is performed without oral or IV contrast. COMPARISON: CT abdomen and pelvis August 22, 2019 FINDINGS: Within the limitations of a non-contrast study, the following observations are made. LUNG BASES: Interval resolution of multiple tiny bilateral pleural effusions. Mild scattered areas of linear scarring and/or atelectasis bilaterally. There are additional scattered small nodules seen bi laterally on current study less well-seen on prior study. For reference 6 mm medial left basilar nod ule axial image 1. For reference 9 x 5 mm subpleural nodule left lower lobe axial image 2. For refere nce there is 7 x 5 mm right lower lobe nodule axial image 8. For reference there is 7 x 4 mm nodule n ear linear scarring right peripheral lower lobe axial image 4. Nonemergent chest CT follow-up advised to further assess for additional nodules. Cardiomegaly redemonstrated along with coronary artery gregorio cifications. Overlying sternal wires partially imaged. LIVER/GB: No significant abnormality is appreciated. PANCREAS: No significant abnormality is seen. SPLEEN: No significant abnormality is seen. ADRENALS: No significant abnormality is seen. KIDNEYS: History of right-sided nephrectomy. 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 Hounsfield units average 5. Significant local mass effect is pr esent. Left kidney shows stable 3 mm nonobstructing calculus lower Pole coronal image 53 BOWEL: The oral contrast reaches level of the terminal ileum. No suspicious small or large bowel dila tation. GENITAL ORGANS: Right posterior calcifications in normal size prostate redemonstrated. LYMPH NODES: No greater than 1cm abdominal or pelvic lymph nodes are appreciated. OSSEOUS STRUCTURES: [id number] multilevel spondylosis thoracolumbar spine. Severe disc space narrowing lumbosacral junction. Multilevel moderate disc space narrowing and vacuum disc phenomenon t o lower lumbar spine greatest right L2-L3 level. OTHER: Moderate to severe calcified plaque abdominal aorta extending into branch vessels. IMPRESSION: Larger now thin-walled right retroperitoneal fluid collection noted of lower density than prior study perhaps residual large chronic right sided retroperitoneal hematoma. Other etiologies no t excluded though felt less likely. Local mass effect is present. Finding likely accounting for patie nt's clinical symptoms.
== END | disposition home or self-care (01) ==
LOC: RADCTMAIN 13:21
PROVIDERS: ATTEND Urology
DX: C64.9 Malignant neoplasm of unspecified kidney, except renal pelvis (principal); K66.8 Other specified disorders of peritoneum; N28.89 Other specified disorders of kidney and ureter; Z88.0 Allergy status to penicillin
CPT/HCPCS: 74176

== ENCOUNTER 2019-12-13 08:39 | Day surgery (SDC) | payer BC ==
[2019-12-13] MEDS ORDERED: ALPRAZolam 0.25 MG TAB PO ONE (08:51)
[2019-12-13 09:24] LABS: Mean Platelet Volume 6.8; Platelet Count 300 k/uL (150-450)
[2019-12-13 09:25] LABS: INR 0.9 (<1.2); Prothrombin Time 9.6 sec (9.0-12.0)
[2019-12-13 09:33] VITALS: TEMP 97.4
[2019-12-13] MEDS ORDERED: HYDROmorphone 0.5 MG/0.5 ML SYRINGE IVP STA (10:26)
--- NOTE | 2019-12-13 11:33 | US ---
EXAMINATION TYPE: US abdomen limited DATE OF EXAM: 12/13/2019 COMPARISON: CT abdomen pelvis 11/23/2019. CLINICAL HISTORY: Preprocedure planning. Right flank hematoma Dr. Pérez present to during exam Preprocedure assessment Limited ultrasound of the right retroperitoneal renal fossa was performed. Sc anning of the right retroperitoneal renal fossa redemonstrated a large septated fluid collection. IMPRESSION: Large septated fluid collection within the right retroperitoneum.
[2019-12-13] MEDS ORDERED: hydrALAZINE HCL 50 MG TAB PO ONE (11:43)
[2019-12-13 12:33] VITALS: RESP 16
[2019-12-13 13:09] VITALS: BP 189/92; PULSE 74
--- NOTE | 2019-12-13 17:43 | CT ---
EXAMINATION TYPE: CT retroperitoneal fluid drain DATE OF EXAM: 12/13/2019 COMPARISON: CT abdomen pelvis 11/23/2019. Ultrasound limited 12/13/2019. HISTORY: Retroperitoneal seroma/hematoma CINDER WORKER: Dr. Celena Pérez PROCEDURE: The procedure was discussed with the patient. The risks, complications, benefits, and alternatives we re discussed and any questions were answered. Informed consent was obtained. Preprocedure pulmonary ultrasound imaging demonstrated a large septated fluid collection within the r ight renal fossa. Preprocedure CT preliminary imaging redemonstrates a large right retroperitoneal 13.7 x 13.7 cm locul ated fluid collection within the right renal fossa, status post right nephrectomy. Maximal barrier technique was utilized. The skin over suitable path to the right retroperitoneal flui d collection was localized with CT and the overlying skin prepped and draped. Lidocaine was used for local anesthesia. A skin gabriel made with a scalpel. Utilizing direct trocar technique 8-FR catheter wa s deployed within the fluid cavity. 1050 mL of clear brown serosanguineous fluid with debris was aspi rated. Catheter was subsequently removed. A sterile bandage placed. No immediate complication. The patient remained in stable condition. Postprocedure imaging demonstrated significant interval decrease in size of the right renal fossa flu id collection measuring up to 5.9 x 9.7 cm, and no evidence of significant hemorrhage. IMPRESSION: 1. Status post CT-guided aspiration of right renal fossa focal fluid collection, with removal of 105 0 mL of clear brown serosanguineous fluid. 2. Significant decrease in size of the septated 13.7 x 13.7 cm right renal fossa fluid collection st atus post aspiration, with residual collection measuring 5.9 x 9.7 cm.
== END 2019-12-13 12:40 | disposition home or self-care (01) ==
LOC: RADPROMAIN 08:39
PROVIDERS: ATTEND Urology
DX: N99.842 Postprocedural seroma of a genitourinary system organ or structure following a genitourinary system procedure (principal); Z90.5 Acquired absence of kidney
CPT/HCPCS: 36415; 49406; 76705; 85049; 85610

== ENCOUNTER 2019-12-13 12:50 | Emergency (ER) | payer BC, MEDICARE ==
[2019-12-13 13:01] VITALS: RESP 18; TEMP 97.8
[2019-12-13] MEDS ORDERED: hydrALAZINE HCL 20 MG/ML 1 ML VIAL IVP STA ×2 (13:19→13:55)
[2019-12-13] MEDS ORDERED: HYDROmorphone 1 MG/ML 1 ML SYRINGE IVP STA (13:19)
--- NOTE | 2019-12-13 13:22 | ED ---
General Adult HPI - General Chief complaint: Recheck/Abnormal Lab/Rx Stated complaint: hypertension Time Seen by Provider: 12/13/19 13:00 Source: patient, RN notes reviewed, old records reviewed Mode of arrival: ambulatory Limitations: no limitations - History of Present Illness Initial comments: This is a 69-year-old male who presents emergency Department complaining of high blood pressure. Patient states he had a nephrectomy back in July and since then he's had quite a bit of pain in that side of his flank. Patient states he was told he had quite a bit of fluid accumulation and he needed to have it drained. Patient states today he had it drained but while he was up there is blood pressure was high so they sent him to the emergency department. Patient denies any headache patient denies numbness weakness. Patient denies blurred vision. Patient denies chest pain palpitations difficulty breathing shortness of breath. Patient denies any abdominal pain. Patient states the numbing medicine and is right flank is wearing off so he is having some pain there. Patient states aside from that which is been ongoing for 4 months he has no pain and no symptoms - Related Data Home Medications Medication Instructions Recorded Confirmed ALPRAZolam [Xanax] 0.25 mg PO BID PRN 10/21/18 12/13/19 Atorvastatin [Lipitor] 40 mg PO HS 10/21/18 12/13/19 Hydrocodone/Acetaminophen [[place] 1 tab PO Q4H PRN 10/21/18 12/13/19 10-325] Tamsulosin HCl [Flomax] 0.4 mg PO BID 10/21/18 12/13/19 Potassium Chloride ER [K-Dur 20] 40 meq PO BID 08/15/19 12/13/19 Carvedilol [Coreg] 12.5 mg PO BID 12/07/19 12/13/19 hydrALAZINE HCL [Apresoline] 50 mg PO TID 12/07/19 12/13/19 Allergies Allergy/AdvReac Type Severity Reaction Status Date / Time Penicillins Allergy Rash/Hives Verified 12/13/19 14:47 Review of Systems ROS Statement: Those systems with pertinent positive or pertinent negative responses have been documented in the HPI. ROS Other: All systems not noted in ROS Statement are negative. Past Medical History Past Medical History: Coronary Artery Disease (CAD), Cancer, Heart Failure, Hyperlipidemia, Hypertension, Prostate Disorder Additional Past Medical History / Comment(s): hx bleeding ulcer, bladder cancer, prostate cancer, rt kidney cancer History of Any Multi-Drug Resistant Organisms: None Reported Past Surgical History: Back Surgery, Coronary Bypass/CABG, Heart Catheter ization, Orthopedic Surgery, Tonsillectomy Additional Past Surgical History / Comment(s): CABG X 4, 10/1998, rt knee replacement, sonja shoulder rotator cuff, neck fusion(no limitations in neck movement), lumbar laminectomy, radiation for prostate cancer, tumors removed from bladder, rt nephrectomy Past Anesthesia/Blood Transfusion Reactions: No Reported Reaction Past Psychological History: Anxiety Smoking Status: Former smoker Past Alcohol Use History: Daily Past Drug Use History: None Reported - Past Family History Mother Family Medical History: No Reported History General Exam - General Exam Comments Initial Comments: GENERAL: Patient is well-developed and well-nourished. Patient is nontoxic and well- hydrated and is in mild distress. ENT: Neck is soft and supple. No significant lymphadenopathy is noted. Oropharynx is clear. Moist mucous membranes. Neck has full range of motion without eliciting any pain. EYES: The sclera were anicteric and conjunctiva were pink and moist. Extraocular movements were intact and pupils were equal round and reactive to light. Eyelids were unremarkable. PULMONARY: Unlabored respirations. Good breath sounds bilaterally. No audible rales rhonchi or wheezing was noted. CARDIOVASCULAR: There is a regular rate and rhythm without any murmurs gallops or rubs. ABDOMEN: Soft and nontender with normal bowel sounds. SKIN: Skin is clear with no lesions or rashes and otherwise unremarkable. NEUROLOGIC: Patient is alert and oriented x3. Cranial nerves II through XII are grossly intact. Motor and sensory are also intact. Normal speech, volume and content. Symmetrical smile. MUSCULOSKELETAL: Normal extremities with adequate strength and full range of motion. LYMPHATICS: No significant lymphadenopathy is noted PSYCHIATRIC: Normal psychiatric evaluation. Limitations: no limitations Course Vital Signs 12/13/19 12/13/19 12/13/19 12:57 13:32 14:01 Temperature 97.8 F Pulse Rate 76 75 76 Respiratory 18 18 18 Rate Blood Pressure 178/84 180/92 185/90 O2 Sat by Pulse 99 99 99 Oximetry 12/13/19 15:01 Temperature Pulse Rate 76 Respiratory 18 Rate Blood Pressure 160/80 O2 Sat by Pulse 99 Oximetry Medical Decision Making - Medical Decision Making Patient received multiple doses of hydralazine and labetalol Patient's blood pressure came down the patient remained asymptomatic at this point time also and the patient home. - Lab Data Result diagrams: 12/13/19 13:28 12/13/19 13:28 Lab Results 12/13/19 12/13/19 Range/Units 13:28 13:28 WBC 5.0 (3.8-10.6) k/uL RBC 3.86 L (4.30-5.90) m/uL Hgb 11.3 L (13.0-17.5) gm/dL Hct 34.9 L (39.0-53.0) % MCV 90.5 (80.0-100.0) fL MCH 29.2 (25.0-35.0) pg MCHC 32.3 (31.0-37.0) g/dL RDW 16.4 H (11.5-15.5) % Plt Count 238 (150-450) k/uL Neutrophils % 70 % Lymphocytes % 16 % Monocytes % 9 % Eosinophils % 2 % Basophils % 1 % Neutrophils # 3.5 (1.3-7.7) k/uL Lymphocytes # 0.8 L (1.0-4.8) k/uL Monocytes # 0.5 (0-1.0) k/uL Eosinophils # 0.1 (0-0.7) k/uL Basophils # 0.0 (0-0.2) k/uL Anisocytosis Slight Sodium 134 L (137-145) mmol/L Potassium 3.9 (3.5-5.1) mmol/L Chloride 103 (98-107) mmol/L Carbon Dioxide 21 L (22-30) mmol/L Anion Gap 10 mmol/L BUN 31 H (9-20) mg/dL Creatinine 1.15 (0.66-1.25) mg/dL Est GFR (CKD-EPI)AfAm 76 (>60 ml/min/1.73 sqM) Est GFR (CKD-EPI)NonAf 66 (>60 ml/min/1.73 sqM) Glucose 96 (74-99) mg/dL Calcium 9.5 (8.4-10.2) mg/dL Total Bilirubin 0.7 (0.2-1.3) mg/dL AST 25 (17-59) U/L ALT 11 (4-49) U/L Alkaline Phosphatase 66 (38-126) U/L Total Protein 6.9 (6.3-8.2) g/dL Albumin 3.9 (3.5-5.0) g/dL Disposition Clinical Impression: Hypertensive urgency Disposition: HOME SELF-CARE Instructions (If sedation given, give patient instructions): Hypertension (ED) Additional Instructions: Patient should increase the hydralazine 75 mg 3 times a day Is patient prescribed a controlled substance at d/c from ED?: No Referrals: Jesus Ojeda MD [Primary Care Provider] - 1-2 days Time of Disposition: 15:16
[2019-12-13 13:48] LABS: Anisocytosis Slight; Basophils % (A) 1 %; Eosinophils # (A) 0.1 k/uL (0-0.7); Eosinophils % (A) 2 %; HCT 34.9 % (39.0-53.0); HGB 11.3 gm/dL (13.0-17.5); Lymphocytes # (A) 0.8 k/uL (1.0-4.8); Lymphocytes % (A) 16 %; MCH 29.2 pg (25.0-35.0); MCHC 32.3 g/dL (31.0-37.0); MCV 90.5 fL (80.0-100.0); Mean Platelet Volume 6.7; Monocytes # (A) 0.5 k/uL (0-1.0); Monocytes % (A) 9 %; Neutrophils # (A) 3.5 k/uL (1.3-7.7); Neutrophils % (A) 70 %; Platelet Count 238 k/uL (150-450); RBC 3.86 m/uL (4.30-5.90); RDW 16.4 % (11.5-15.5)
[2019-12-13 13:56] LABS: Albumin 3.9 g/dL (3.5-5.0); Calcium 9.5 mg/dL (8.4-10.2); Potassium 3.9 mmol/L (3.5-5.1); Total Bilirubin 0.7 mg/dL (0.2-1.3); Total Protein 6.9 g/dL (6.3-8.2)
[2019-12-13] MEDS ORDERED: LABETALOL 5 MG/ML VIAL MDV IVP STA (14:31)
[2019-12-13] MEDS ORDERED: LABETALOL 5 MG/ML VIAL MDV IVP ONE (15:13)
[2019-12-13] MEDS ORDERED: LABETALOL 5 MG/ML VIAL MDV IVP SCH (15:15)
[2019-12-13 15:17] VITALS: BP 160/80; PULSE 76
[2019-12-13] MEDS ORDERED: HYDROmorphone 0.5 MG/0.5 ML SYRINGE IVP STA (15:23)
== END 2019-12-13 15:38 | disposition home or self-care (01) ==
LOC: EC 12:50
DX: I16.0 Hypertensive urgency (principal); F41.9 Anxiety disorder, unspecified; I25.10 Atherosclerotic heart disease of native coronary artery without angina pectoris; I11.0 Hypertensive heart disease with heart failure; I50.9 Heart failure, unspecified; E78.5 Hyperlipidemia, unspecified; Z79.899 Other long term (current) drug therapy; Z85.528 Personal history of other malignant neoplasm of kidney; Z85.51 Personal history of malignant neoplasm of bladder; Z85.46 Personal history of malignant neoplasm of prostate; Z95.1 Presence of aortocoronary bypass graft; Z95.5 Presence of coronary angioplasty implant and graft; Z87.891 Personal history of nicotine dependence; Z88.0 Allergy status to penicillin; Z96.651 Presence of right artificial knee joint; Z92.3 Personal history of irradiation; Z90.5 Acquired absence of kidney
CPT/HCPCS: 36415; 80053; 85025; 87070; 87205; 87075; 99284; 96374; 96375 ×2; 96376; J0360; J1170 ×2

== ENCOUNTER → 2020-04-20 | Outpatient (CLI) | payer BC, MEDICARE ==
--- NOTE | 2020-04-20 16:33 | CT ---
EXAMINATION TYPE: CT abdomen pelvis wo con DATE OF EXAM: 04/20/2020 COMPARISON: 11/23/2019 HISTORY: Left sided flank pain, hx of renal cancer and right nephrectomy. CT DLP: 896.7 mGycm Examination of the solid and hollow viscera is limited given the lack of contrast. FINDINGS: LUNG BASES: No evidence for nodule. No evidence for infiltrate. LIVER/GB: The gallbladder is unremarkable. Hypoattenuating left renal lesion. PANCREAS: No pancreatic mass identified. No inflammatory process seen. SPLEEN: No evidence for splenomegaly. No intrasplenic lesions seen. ADRENALS: No adrenal nodules identified. No evidence for thickening. KIDNEYS: The patient is status post right-sided nephrectomy with right renal fossa hematoma being muc h smaller in size and currently measuring 6.6 x 5.2 cm versus 13.0 x 13.3 cm previously. No recurrent mass is identified. Nonobstructing left renal calculi. No evidence for renal mass. No nephrolithiasi s. No hydronephrosis. BOWEL: Appendix has a normal appearance. No evidence of bowel obstruction. No inflammatory process. Lymph nodes: No evidence for adenopathy greater than 1 cm. Abdominal aorta: Atheromatous changes seen. No evidence for aneurysm. Genital organs: No significant abnormality. Other: No significant abnormality. IMPRESSION: 1.The patient is status post right-sided nephrectomy with right renal fossa hematoma being much small er in size and currently measuring 6.6 x 5.2 cm versus 13.0 x 13.3 cm previously. 2. Simple appearing within the liver is stable.
== END | disposition home or self-care (01) ==
LOC: RADCTMAIN 16:08
PROVIDERS: ATTEND Radiology Radiation Oncology
DX: S37.011A Minor contusion of right kidney, initial encounter (principal); Z90.5 Acquired absence of kidney; C65.1 Malignant neoplasm of right renal pelvis; C61 Malignant neoplasm of prostate; Z92.3 Personal history of irradiation; Z85.51 Personal history of malignant neoplasm of bladder; Z87.891 Personal history of nicotine dependence
CPT/HCPCS: 74176

== ENCOUNTER 2021-06-12 07:23 | Inpatient (IN) | payer MEDICARE, OTHER ==
[2021-06-10 16:14] VITALS: BMI 31.1
[~2021-06-12 07:23] MED LIST changes: -DEXAMETHASONE SOD PHOSPHATE 10 MG/ML 1 ML VIAL IV ONE; +DEXAMETHASONE SOD PHOSPHATE 4 MG/ML 1 ML VIAL IV ONE; -LACTATED RINGERS 1,000 ML IV SCH; -MIDAZOLAM 2 MG/2 ML VIAL IV PRN; +ceFAZolin 1,000 MG in SODIUM CHLORIDE 0.9% IRRIGATIO 1,000 ML IRRIGATION PRN
[2021-06-12] MEDS: LACTATED RINGERS 1,000 ML IV SCH ×3 (08:25→15:58)
[2021-06-12 08:37] LABS: Albumin 3.7 g/dL (3.5-5.0); Calcium 8.8 mg/dL (8.4-10.2); Potassium 4.5 mmol/L (3.5-5.1); Total Bilirubin 1.3 mg/dL (0.2-1.3); Total Protein 6.8 g/dL (6.3-8.2)
[2021-06-12 08:43] LABS: Partial Thromboplastin Time 23.1 sec (22.0-30.0); Prothrombin Time 10.5 sec (9.0-12.0)
[2021-06-12] MEDS ORDERED: PROPOFOL 10 MG/ML 20 ML VIAL IV ONE (08:45)
[2021-06-12] MEDS ORDERED: KETAMINE 10 MG/ML 20 ML VIAL ONE (08:45)
[2021-06-12] MEDS ORDERED: MIDAZOLAM 2 MG/2 ML VIAL ONE (08:45)
[2021-06-12] MEDS ORDERED: LIDOCAINE 2% INJ 20 MG/ML (2 ML VIAL) ONE (08:45)
[2021-06-12] MEDS ORDERED: PHENYLEPHRINE-0.9% NACL SYG 1,000 MCG/10 ML SYRINGE ONE (08:45)
[2021-06-12] MEDS ORDERED: ePHEDrine 50 MG/ML 1 ML VIAL ONE (08:45)
[2021-06-12] MEDS ORDERED: fentaNYL (PF) 50 MCG/ML 2 ML AMP ONE (08:45)
[2021-06-12] MEDS ORDERED: HYDROmorphone (PF) 1 MG/ML ONE (08:45)
[2021-06-12] MEDS ORDERED: SODIUM CHLORIDE 0.9% IRRIG 1,000 ML BTL IRRIGATION ONE (08:45)
[2021-06-12] MEDS ORDERED: ALBUMIN HUMAN 5% (25gm) 500 ML VIAL IVPB ONE (08:45)
[2021-06-12] MEDS ORDERED: SUCCINYLCHOLINE CHLORIDE 100 MG/5 ML SYR IV ONE (08:45)
[2021-06-12] MEDS ORDERED: HEPARIN SODIUM,PORCINE 10,000 UNIT/ML 1 ML VIAL ONE (08:45)
[2021-06-12] MEDS ORDERED: ROCURONIUM 10 MG/ML (5 ML VIAL) IV ONE (08:45)
[2021-06-12] MEDS ORDERED: LACTATED RINGERS 1,000 ML IV ONE ×2 (09:26→11:38)
[2021-06-12] MEDS ORDERED: BUPIVACAINE (PF) 0.5% 30 ML VIAL SQ ONE (09:29)
[2021-06-12] MEDS ORDERED: LIDOCAINE 2%-EPI 1:100,000 20 ML VIAL SQ ONE (09:29)
[2021-06-12] MEDS ORDERED: GELATIN SPONGE,ABSORB (LARGE) 1 EACH SPONGE TOPICAL ONE (09:31)
[2021-06-12] MEDS ORDERED: THROMBIN (BOVINE) 5,000 UNIT VIAL TOPICAL ONE (09:36)
[2021-06-12] MEDS ORDERED: SODIUM CHLORIDE 0.9% 100 ML with ceFAZolin 2,000 MG IV ONE ×2 (13:09)
--- NOTE | 2021-06-12 13:53 | FL ---
Fluoroscopy HISTORY: Lumbar fusion 27 seconds fluoroscopy time supplied to the referring clinician. 2 intraoperative C-arm images docum ent the procedure. See dictated report from orthopedic surgery.
[2021-06-12] MEDS ORDERED: SENNOSIDES-DOCUSATE SODIUM 1 EACH TAB PO PRN (14:12)
[2021-06-12] MEDS ORDERED: MAGNESIUM HYDROXIDE 2,400 MG/10 ML CUP PO PRN ×2 (14:12)
[2021-06-12] MEDS ORDERED: diazePAM 5 MG TAB PO PRN (14:12)
[2021-06-12] MEDS ORDERED: BENZOCAINE/MENTHOL LOZENG 1 EACH LOZENGE MUCOUS MEM PRN (14:12)
--- NOTE | 2021-06-12 14:25 | P.OP ---
Date of Procedure: 06/12/21 Preoperative Diagnosis: Recurrent spinal stenosis L2-3 L3 4 L4 5 L5-S1, history of laminectomy decompression L2-3 L3 4 L4 5 L5-S1, disc herniation L3 4 L4 5, degenerative scoliosis, degenerative disc disease, low back pain, lower extremity radiculopathy, lower extremity weakness Postoperative Diagnosis: Same Anesthesia: GETA Pathology: none sent Condition: stable Disposition: PACU Description of Procedure: BRIEF OPERATIVE NOTE Preoperative Diagnosis:Recurrent spinal stenosis L2-3 L3 4 L4 5 L5-S1, history of laminectomy decompression L2-3 L3 4 L4 5 L5-S1, disc herniation L3 4 L4 5, degenerative scoliosis, degenerative disc disease, low back pain, lower extremity radiculopathy, lower extremity weakness Postoperative Diagnosis:Recurrent spinal stenosis L2-3 L3 4 L4 5 L5-S1, history of laminectomy decompression L2-3 L3 4 L4 5 L5-S1, disc herniation L3 4 L4 5, degenerative scoliosis, degenerative disc disease, low back pain, lower extremity radiculopathy, lower extremity weakness Procedure: Revision Laminectomy and decompression L2-3 L3 4 L4 5 L5-S1 Posterior lateral decompression and fusion L2-3 L3 4 L4 5 L5- S1 Transforaminal lumbar interbody fusion for a 360 fusion L3 4 L4 5 Discectomy for decompression L3 4 L4 5 Placement of interbody graft L3 4 L4 5 Local autogenous bone grafting Use of Z CT-guided navigation system for pedicle screw placement Harvesting of local autogenous bone graft Harvesting of bone marrow aspirate from the vertebral bodies of L3 and L4 Use of Cell Saver Use of bone graft extenders Use of neuro monitoring Surgeon: Dr. Corbett Social Services Analyst: Jayme Nelson is present throughout the entire the case persistence during positioning, dissection, exposure, visualization, and all crucial elements of the case as well as closure. Anesthesia: General anesthesia per Dr. Dr. Martínez Estimated blood loss: Approximately 600 mL Complications: None apparent Components implanted: K2M Mc[place] cannulated screw pedicle screw system measuring 5.5 and 6.5 mm and 50 and 55 mm in length with rods and 2 [place] titanium interbody cages with local autogenous bone graft supplemented with bio4 bone graft matrix and bone putty and bone mesh Disposition: To recovery room in good stable condition. OPERATIVE INDICATIONS The patient has had long-standing issues in their lower back and lower extremities. The past he has had laminectomy decompression from L2 to S1 for his significant stenosis and he had done well initially with that for a few years however over the past couple years he's been having worsening and past few months he's been having significant debility and feels that he is essentially unable to walk. He's been having significant weakness in his lower extremities is was found to have a new disc herniation L3 4 and L4 5 to go along with his re current stenosis at L2-3 and L5-S1. He was found also have severe disc degeneration degenerative scoliosis at his low back which contributed his low back and lower extremity symptoms. The patient has been through conservative treatment. We discussed various treatment options including surgery, and the patient wishes to proceed with surgery We discussed the risk, patient's alternatives and benefits of surgery including but not limited to, risk of bleeding risk of infection, risk of need for further surgery, risk of decreased, loss of motion, muscle function, malunion nonunion, hardware failure, nerve damage, paralysis, heart attack, blindness and . OPERATIVE SUMMARY After discussing all the risks, patient alternatives and benefits at length, the patient elected to proceed with surgical intervention, signed informed consent, and presented for their procedure. The patient was seen and examined in the preoperative holding area and the surgical site was marked. The patient was g iven antibiotics and brought to the operating room. The patient was sedated and intubated by anesthesia in standard fashion. The patient was positioned on to the operating room table in a prone position on the appropriate frame which was well-padded and well molded. We were careful to pad any bony prominences and pressure points. We were careful to maintain the patient's cervical spine and good neutral alignment and position throughout. The patient was prepped and draped in a normal standard fashion. An appropriate timeout and keystone protocol performed. We were able to proceed with the surgery. The local wound area was infiltrated with local anesthetic. An incision was made at the midline longitudinally over the appropriate levels. Dissection was taken down subcutaneously to the level of the fascia which was split midline. Dissection was taken over the lamina bilaterally over the facet joints and to the transverse processes. Intraoperative x-ray was taken which showed a marker at the appropriate level. With the appropriate level positively confirmed, we were able to proceed with placement of the pedicle holes and screws. The patient had all their twitches back. The wound was copiously irrigated and suctioned dry as had been done periodically throughout the case. Screw holes were established similarly at each level. I was able to appropriate level and which was confirmed with C-arm guidance. I was able to dissect out over the facet joints and over the transverse processes and sacral ala bilaterally from L2 to S1. I then prepared and placed a reference point for the CT seem application guidance system. I used the clamp at the spinous process of S1 and secured appropriately. We did appropriate draping and then did a spin with easy CT navigation system for further guidance during placement of the ankle screws from L2 to S1 bilaterally. I used a Jamshidi needle with guidance appropriately to establish the starting point and then was malleted in position with direct visualization as long as well as with guidance. With it placed appropriately is unable to place a guidewire through the Jamshidi needle appropriately this was done at each level from L2 S1 bilaterally. With all the wires in place. Able to move the C-arm back in. The guidance system showed excellent alignment and position and C-arm confirmed this with the wire placement. I was unable to place a screw over each of the wires with the appropriate length with excellent fit and fill in good alignment and position. Each screw and excellent purchase at L2 S1 bilaterally. The transverse process or sacral ala was decorticated with a high-speed bur. I was able to place the appropriate size screw and good alignment and good position with good bony purchase. When the screws were inserted there were stimulated, and found to have no stimulation at 20 mA. I was able to turn my attention to the decompression . I had to perform revision decompression at each level L2-3 L3 4 L4 5 and L5-S1. I paid particular attention to L3 4 and L4 5 where a perform the TLIF during the case. decompression was performed with a combination of rongeurs, curettes, Kerrison rongeurs and a ball-tip feeler. All of the bone that was removed was stripped and morcellized for use as autogenous bone graft later in the case. I was able to obtain good central decompression as well as wide bilateral foraminal decompression. There is no evidence of dural tear or leak. Good hemostasis was maintained. The wound was irrigated and suctioned dry. I performed a complete facetectomy at the appropriate level on the most symptomatic side on the right at L34 and at L4 5. All bone that was removed was saved for local autogenous bone grafting. I was able to gain access to the disc space at the appropriate level/levels. Good hemostasis was maintained. I was able to protect the neurologic structures. A discectomy was performed. There was extruded fragment of disc at each level and I was able to remove this. The disc had some adherence and there is significant scar tissue around the dura and I had to be particularly meticulous in order to remove disc without damaging the dura itself. This provided further decompression. I was also able to perform complete discectomy and endplate preparation with a combination of pituitary curettes, rasps and scrapers. With the interbody space prepared, I was able to do appropriate sizing. The appropriate size cage was chosen. The wound was irrigated and suctioned dry. The interbody space was packed with local autogenous bone graft and a small portion of bone graft substitute, as was the cage itself. Protecting the soft tissue structures, I was able place the cage in good alignment and good position with good fit and fill. There is no evidence of extrusion of the graft material nor protrusion of the interbody device. The wound was irrigated and suctioned dry. This was done first at L3 4 and L4 5 similarly With the hardware intact, intraoperative x-ray was again taken which showed good alignment and position of the hardware at the appropriate levels. We were then able to measure, contour and place the rods and appropriate hardware bilaterally. I was able to place capcrews, tighten them down, and torque them off appropriately. With this intact I was able to place the local otitis bone graft with additional bone graft enhancer as necessary into the posterior lateral gutters bilaterally. With the bone graft intact, a stable construct, and good decompression at the appropriate levels, we were able to proceed with closure. Good hemostasis was maintained. There is no evidence of dural tear or leak. The fascia was closed for a watertight closure. The subcutaneous tissue was closed over a superficial drain. The subcuticular tissue was closed with absorbable suture. The wound was cleaned and dried and dressed with the appropriate dressing. The drapes were broken down. The patient was gently rolled back onto their hospital bed being careful to maintain their cervical spine and good neutral alignment and position. They were woken up by anesthesia, extubated, and brought to the recovery room in good stable condition. The patient will be admitted to the hospital for appropriate postoperative care, medical management and monitoring. We will continue to follow them closely about the postoperative course.
[2021-06-12] MEDS: HYDROmorphone 0.5 MG/0.5 ML SYRINGE IVP PRN ×3 (14:26→14:46)
[2021-06-12] MEDS: ONDANSETRON 4 MG/2 ML VIAL IVP PRN ×2 (14:46→22:25)
[2021-06-12] MEDS: fentaNYL (PF) 50 MCG/ML 2 ML AMP IVP ONE ×2 (15:05→15:31)
[2021-06-12] MEDS ORDERED: HYDROmorphone 0.5 MG/0.5 ML SYRINGE IVP ONE (16:02)
[2021-06-12] MEDS: SODIUM CHLORIDE 0.9% 1,000 ML IV SCH (16:32)
[2021-06-12] MEDS: carvediloL 12.5 MG TAB PO SCH (16:46)
[2021-06-12] MEDS: hydrALAZINE HCL 50 MG TAB PO SCH ×2 (16:46→22:47)
[2021-06-12] MEDS: PANTOPRAZOLE 40 MG TABLET PO SCH (16:46)
[2021-06-12] MEDS: HYDROmorphone 1 MG/ML 1 ML SYRINGE IVP PRN ×2 (17:05→21:08)
--- NOTE | 2021-06-12 18:39 | CONS ---
CONSULTATION This 71-year-old white male is status post laminectomy, decompression of multiple discs in his spinal canal for severe lumbar disc disease in a 71-year-old for medical management consult. Past medical history includes heart disease, hypertension, hypercholesterolemia, GERD, bladder cancer, prostate cancer. Home medicines are atorvastatin 40 daily, Lasix 20 daily, aspirin 81 mg daily, Flomax 0.4 mg daily, Blanchard 10/325, hydralazine 25 daily, carvedilol 12.5 b.i.d., spironolactone 12.5 one daily, Amitiza 24 mcg daily, omeprazole 20 daily, prednisone 10 daily, Blanchard and cyclobenzaprine. Please see further surgery history, family history. Please see list in the chart; reviewed. Fourteen-point review of systems was negative. Please see list in the hospital. He weighs 225 pounds. No acute distress. Cardiovascular S1, S2. Lungs clear. Back is bandaged up. Hematology negative Homans. ASSESSMENT: 1. Hypertension. 2. Heart disease. 3. Status post lumbar laminectomy. 4. Mildly elevated blood sugar. Will monitor his breathing overnight. Continue his home medicines. Will check everything out. MMODL / IJN: [id number] /
[2021-06-12] MEDS: HYDROcodone/APAP 7.5-325MG 1 EACH TAB PO PRN (19:41)
[2021-06-12] MEDS: SPIRONOLACTONE 25 MG TAB PO SCH (21:07)
[2021-06-12] MEDS: TAMSULOSIN 0.4 MG CAP.ER.24H PO SCH (21:08)
[2021-06-12] MEDS: ATORVASTATIN 40 MG TAB PO SCH (21:08)
[2021-06-13] MEDS: HYDROmorphone 1 MG/ML 1 ML SYRINGE IVP PRN ×4 (01:45→17:54)
[2021-06-13] MEDS: HYDROcodone/APAP 10-325MG 1 EACH TAB PO PRN ×2 (03:33→20:40)
[2021-06-13] MEDS: CYCLOBENZAPRINE 10 MG TAB PO PRN (04:49)
[2021-06-13] MEDS: SODIUM CHLORIDE 0.9% 1,000 ML IV SCH ×2 (05:17→15:21)
[2021-06-13 06:42] LABS: Glucose,Whole Blood 143 mg/dL (75-99)
[2021-06-13] MEDS: carvediloL 12.5 MG TAB PO SCH ×2 (07:38→15:21)
[2021-06-13] MEDS: HYDROcodone/APAP 7.5-325MG 1 EACH TAB PO PRN (07:38)
[2021-06-13] MEDS: hydrALAZINE HCL 50 MG TAB PO SCH ×3 (07:39→20:40)
[2021-06-13] MEDS: SENNOSIDES-DOCUSATE SODIUM 1 EACH TAB PO SCH (07:39)
[2021-06-13] MEDS: PANTOPRAZOLE 40 MG TABLET PO SCH ×2 (07:39→15:21)
[2021-06-13] MEDS: ONDANSETRON 4 MG/2 ML VIAL IVP PRN ×2 (07:44→15:20)
[2021-06-13 09:42] LABS: Basophils # (A) 0.03 X 10*3/uL (0.00-0.10); Basophils % (A) 0.4 %; Eosinophils # (A) 0.02 X 10*3/uL (0.04-0.35); Eosinophils % (A) 0.3 %; HCT 24.2 % (39.6-50.0); HGB 8.1 g/dL (13.0-17.0); Immature Grans, Automated 0.5 %; Lymphocytes # (A) 0.46 X 10*3/uL (0.90-5.00); Lymphocytes % (A) 6.1 %; MCH 34.6 pg (27.0-32.0); MCHC 33.5 g/dL (32.0-37.0); MCV 103.4 fL (80.0-97.0); Mean Platelet Volume 9.2 fL (9.5-12.2); Monocytes # (A) 0.77 X 10*3/uL (0.20-1.00); Monocytes % (A) 10.2 %; NRBC Per 100 WBC 0 /100 WBCS (0.0-0.0); Neutrophils # (A) 6.21 X 10*3/uL (1.80-7.70); Neutrophils % (A) 82.5 %; Platelet Count 143 X 10*3/uL (140-440); RBC 2.34 X 10*6/uL (4.40-5.60); RDW 13.8 % (11.5-14.5); WBC 7.53 X 10*3/uL (4.50-10.00)
[2021-06-13 09:45] LABS: African American GFR (CKD) 54.3 (60.0-200.0); Anion Gap 13.9 mmol/L (10.00-18.00); BUN/Creat Ratio 12.67 Ratio (12.00-20.00); Carbon Dioxide 18.1 mmol/L (20.0-27.5); Non-African American GFR(CKD) 46.8 (60.0-200.0)
--- NOTE | 2021-06-13 10:32 | P.PN ---
Progress Note - Text Progress Note Date: 06/13/21 Postoperative day #1 Patient is seen and examined today at bedside. The patient has some pain around the surgical site as expected. It has been difficult to control his pain with medication thus far. He says his right leg is doing well but is having some pain around his left thigh. Denies any new neurologic loss. Physical Exam Afebrile with stable vital signs Abdomen is soft nontender. Chest has good excursion deep and space expiration The incision site is clean dry and intact. No erythema there is no purulence. His back dressings intact. Hemovac is intact. Extremities have not had neurologic change from prior to surgery. He has sustained dorsal to plantar flexion and EHL bilateral lower extremities thighs and calves are soft nontender Calves and thighs were soft nontender without evidence of DVT. Assessment/Plan Postoperative day #1 status post revision laminectomy decompression L2 to S1 with fusion L2-3 L3 4 L4 5 L5-S1 for his recurrent stenosis disc herniation low back pain lower extremity radiculopathy with degenerative scoliosis Patient is progressing as expected from the surgery. His pain is not well controlled and we will increased pain medication and frequency. We will continue to increase the patient's mobilization with therapy. We should try to remove the Porter today to see if he can urinate on his own We will continue pain control with oral or IV medications. We'll have case management see him as well for appropriate discharge planning possibly this weekend. We'll continue to follow patient closely.
[2021-06-13] MEDS: HYDROmorphone 2 MG TAB PO PRN ×3 (12:09→22:05)
[2021-06-13] MEDS: SPIRONOLACTONE 25 MG TAB PO SCH (20:40)
[2021-06-13] MEDS: ATORVASTATIN 40 MG TAB PO SCH (20:40)
[2021-06-13] MEDS: TAMSULOSIN 0.4 MG CAP.ER.24H PO SCH (20:42)
[2021-06-14] MEDS: ONDANSETRON 4 MG/2 ML VIAL IVP PRN ×3 (00:20→17:52)
[2021-06-14] MEDS: HYDROcodone/APAP 10-325MG 1 EACH TAB PO PRN ×5 (01:23→22:10)
[2021-06-14] MEDS: HYDROmorphone 1 MG/ML 1 ML SYRINGE IVP PRN ×3 (03:12→16:46)
[2021-06-14] MEDS: CYCLOBENZAPRINE 10 MG TAB PO PRN ×2 (05:44→22:09)
[2021-06-14] MEDS: SODIUM CHLORIDE 0.9% 1,000 ML IV SCH (05:51)
[2021-06-14] MEDS: hydrALAZINE HCL 50 MG TAB PO SCH ×3 (08:31→22:10)
[2021-06-14] MEDS: PANTOPRAZOLE 40 MG TABLET PO SCH ×2 (08:31→17:55)
[2021-06-14] MEDS: SENNOSIDES-DOCUSATE SODIUM 1 EACH TAB PO SCH (08:31)
[2021-06-14] MEDS: carvediloL 12.5 MG TAB PO SCH ×2 (08:32→17:55)
--- NOTE | 2021-06-14 08:37 | P.PN ---
Progress Note - Text Progress Note Date: 06/14/21 Orthopedic Spine History of present illness: Patient is a pleasant 71-year-old male who is seen and examined at the bedside following posterior lateral decompression and fusion performed Thursday. Patient states they are doing ok post operatively. He does continue to have some difficulty with pain control. He is currently receiving IV Dilaudid, oral [place], and cyclobenzaprine as prescribed for pain control. He states his lower extremities are doing well. He is not currently complaining of lower extremity radiculopathy of the bedside. His most significant pain is at the surgical site of his lumbar spine. His Porter catheter has been discontinued. He is voiding independently without difficulty. He has not had much of an appetite postoperatively but has been able to eat without difficulty. He denies any abdominal pain. He is passing gas. He has been able to work with physical therapy to transfer to a bedside chair. He is planning to work with physical therapy further today. Currently does not complain of nausea, vomiting, fever, or chills. He will be seen by social work/case management to discuss discharge including possibility of transfer to [facility] or discharge home with home health services. Consultation has been placed with Dr. Calderon for medical management postoperatively. Issues other medical history includes heart disease, hypertension, elevated cholesterol, history of bladder cancer, and history of prostate cancer. Physical Exam Lumbar Fusion: Status post surgical day number 2 Patient is awake, alert, and oriented 3 Vital signs stable Good chest excursion with deep inspiration and expiration Abdomen soft nontender Dorsiflexion, plantarflexion, and extensor hallucis longus positive sustained bilaterally No signs or symptoms of DVT; no calf pain; pneumatic cuffs intact bilateral lower extremities Optifoam dressings are clean, dry, and intact over the lumbar spine and right iliac crest; no erythema, purulence, or signs of infection Hemovac drain is removed during physical examination and a new dressing is placed over the Hemovac drain site Neurovascularly intact bilaterally lower extremities Patient has significant difficulty with rolling over in bed Assessment: Status post open posterior lateral decompression and fusion at L2-3, L3-4, L4-5, and L5-S1 with transforaminal lumbar interbody fusion at L3-4 and L4-5 Low back pain L2-3, L3-4, L4-5, and L5-S1 recurrent spinal stenosis L2-3, L3-4, L4-5, and L5-S1 history of laminectomy and decompression L3-4 and L4-5 herniated nucleus pulposus Degenerative scoliosis Lumbar degenerative disc disease Lower extremity weakness Lower extremity radiculopathy Heart disease Hypertension Elevated cholesterol History of bladder cancer History of prostate cancer Plan: 1. Ambulate as tolerated; work with Physical Therapy to increase mobilization 2. Continue pain control with IV and oral medications including IV Dilaudid, oral [place], and cyclobenzaprine; to this point, he has had difficulty with pain control postoperatively. We will continue to keep this medication regiment intact until his pain is better controlled at which time we will plan to begin weaning the patient off of IV narcotic medication in anticipation for discharge to a rehabilitation facility or possibly home with home health care 3. Dressings to remain intact with Optifoam; patient may shower with dressings intact 4. Medical management can continue to manage patient for patient's other medical diagnoses including heart disease, hypertension, and elevated cholesterol. 5. We will continue to follow the patient closely; patient has significant difficulty with mobilization and pain control postoperatively. He'll most likely remain in the hospital over the weekend with plans for possible discharged to a rehabilitation facility this coming 06/17/2021. If he is able to make good progress, we could plan for possible discharge home with home health care. 6. Patient can follow-up with Jayme Rutledge PA-C or Dr. Soy Corbett at [facility] in 2-3 weeks following discharge
[2021-06-14 09:16] LABS: HCT 21.7 % (39.6-50.0); HGB 7.3 g/dL (13.0-17.0); MCH 34.6 pg (27.0-32.0); MCHC 33.6 g/dL (32.0-37.0); MCV 102.8 fL (80.0-97.0); Mean Platelet Volume 9.3 fL (9.5-12.2); NRBC Per 100 WBC 0 /100 WBCS (0.0-0.0); Platelet Count 147 X 10*3/uL (140-440); RBC 2.11 X 10*6/uL (4.40-5.60); RDW 14.1 % (11.5-14.5); WBC 8.41 X 10*3/uL (4.50-10.00)
[2021-06-14] MEDS: HYDROmorphone 2 MG TAB PO PRN ×3 (11:06→19:39)
--- NOTE | 2021-06-14 15:34 | CDI ---
Documentation Clarification Form Date: 06/14/2021 03:02:59 PM From: Rosa Isela Stevenson RN CCDS Admit Date: 06/14/2021 12:02:00 PM Patient Name: Erickson Calhoun Visit Number: [id number] Discharge Date: ATTENTION: The Clinical Documentation Specialists (CDI) and [facility] Coding Staff appreciate your assistance in clarifying documentation. Please respond to the clarification below the line at the bottom and electronically sign. The CDI & [facility] Coding staff will review the response and follow-up if needed. Please note: Queries are made part of the Legal Health Record. If you have any questions, please contact the author of this message via ITS. Dr. Umer Calderon Your patient has the documented diagnosis of unspecified heart disease, 06/12, Medicine consult. Additional information regarding the heart disease is requested. History/Risk Factors: 71-year-old male presents for elective revision of laminectomy. Medical History: HTN, Heart Disease and Hypercholesterolemia Clinical Indicators: VS/Pulse OX: 06/14 B/P 127/65; HR 99; Temp 98.7F Oral; RR 17; SpO2 96% ra Echocardiogram Results:08/19/19 Moderate concentric left ventricular hypertrophy EF 50-55% Trace mitral regurgitation; Mild tricuspid regurgitation present. Echocardiogram Results: 08/30/19 Moderate concentric left ventricular hypertrophy. EF 55-60% Left atrium was not well visualized; right atrium was not well visualized. Treatment: 06/12 current Coreg 25mg PO BID; 06/12 current Aldactone 25mg PO HS; In your professional opinion, can you please clarify the [acuity and type] of CHF if known? [ ] Chronic Systolic Heart Failure (reduced EF) [ ] Chronic Diastolic Heart Failure (preserved EF) [ ] Chronic Heart Failure Systolic & Diastolic Heart Failure [ ] Other, please specify [ ] Unable to determine (Template Last Revised: March 2020) MTDD
[2021-06-14] MEDS: ATORVASTATIN 40 MG TAB PO SCH (22:09)
[2021-06-14] MEDS: SPIRONOLACTONE 25 MG TAB PO SCH (22:09)
[2021-06-14] MEDS: TAMSULOSIN 0.4 MG CAP.ER.24H PO SCH (22:10)
[2021-06-15] MEDS: HYDROmorphone 1 MG/ML 1 ML SYRINGE IVP PRN ×3 (00:41→18:32)
[2021-06-15] MEDS: SODIUM CHLORIDE 0.9% 1,000 ML IV SCH ×3 (01:28→22:40)
[2021-06-15] MEDS: HYDROmorphone 2 MG TAB PO PRN ×4 (03:19→19:52)
[2021-06-15] MEDS: HYDROcodone/APAP 10-325MG 1 EACH TAB PO PRN ×4 (05:28→22:38)
[2021-06-15] MEDS: ONDANSETRON 4 MG/2 ML VIAL IVP PRN ×2 (05:28→17:20)
[2021-06-15] MEDS: CYCLOBENZAPRINE 10 MG TAB PO PRN ×2 (07:35→22:38)
[2021-06-15] MEDS: PANTOPRAZOLE 40 MG TABLET PO SCH ×2 (07:36→17:16)
[2021-06-15] MEDS: carvediloL 12.5 MG TAB PO SCH ×2 (07:37→17:16)
[2021-06-15] MEDS: SENNOSIDES-DOCUSATE SODIUM 1 EACH TAB PO SCH (07:54)
[2021-06-15] MEDS: hydrALAZINE HCL 50 MG TAB PO SCH ×3 (07:54→22:38)
--- NOTE | 2021-06-15 08:08 | P.PN ---
Progress Note - Text Progress Note Date: 06/15/21 Postoperative day #3 Patient is seen and examined today at bedside. The patient has some pain around the surgical site as expected. Pain is being controlled with medication. He is still using both the IV and alternating with oral medication regularly. He is voiding freely. He is passing gas and tolerating his diet. He still has some burning in his thighs occasionally which settled down medications. He is not complaining of any new weakness in his lower extremities. He denies any stacey rtness of breath. He still having great difficulty with any transferring out of bed on his own. Physical Exam Afebrile with stable vital signs Abdomen is soft nontender. Chest has good excursion deep and space expiration The incision site is clean dry and intact. No erythema there is no purulence. The drain is removed and there is no active drainage or purulence or erythema Extremities have not had neurologic change from prior to surgery. He is good sustained dorsal flexion plantar flexion and EHL in his lower extremities. He is able lift his legs off the bed independently. Calves and thighs were soft nontender without evidence of DVT. Has acute blood loss anemia and is hemoglobin is 7.3 down from 8.3, but his vitals remained stable and he is essentially asymptomatic thus far Assessment/Plan Postoperative day #3 status post open decompression and fusion L2-3 and L3 4 L4 5 for his degenerative scoliosis with stenosis and disc herniation and lower extremity radiculopathy Patient is progressing as expected from the surgery. His progress has been a bit slow but given his large surgery this has been expected. We will continue to increase the patient's mobilization with therapy. He is voiding freely tolerating his diet well We'll have to monitor his hemoglobin closely and consider transfusion if he becomes symptomatic medically We will continue pain control with oral or IV medications. Hopefully he will be able to decrease his IV pain medication requirement as he transitions oral and prepared for discharge planning whether that is home with home health or to a assisted facility prior to discharge in the next day or 2 We'll continue to follow patient closely.
[2021-06-15] MEDS: TAMSULOSIN 0.4 MG CAP.ER.24H PO SCH (22:38)
[2021-06-15] MEDS: SPIRONOLACTONE 25 MG TAB PO SCH (22:38)
[2021-06-15] MEDS: ATORVASTATIN 40 MG TAB PO SCH (22:39)
[2021-06-16] MEDS: ONDANSETRON 4 MG/2 ML VIAL IVP PRN (02:20)
[2021-06-16] MEDS: HYDROmorphone 2 MG TAB PO PRN ×6 (02:20→21:00)
[2021-06-16] MEDS: CYCLOBENZAPRINE 10 MG TAB PO PRN (05:14)
[2021-06-16] MEDS: HYDROcodone/APAP 10-325MG 1 EACH TAB PO PRN ×5 (05:14→22:06)
[2021-06-16] MEDS: SODIUM CHLORIDE 0.9% 1,000 ML IV SCH (07:06)
[2021-06-16] MEDS: PANTOPRAZOLE 40 MG TABLET PO SCH ×2 (07:06→16:34)
[2021-06-16] MEDS: carvediloL 12.5 MG TAB PO SCH ×2 (07:06→16:34)
[2021-06-16] MEDS: hydrALAZINE HCL 50 MG TAB PO SCH ×3 (09:09→20:59)
[2021-06-16] MEDS: SENNOSIDES-DOCUSATE SODIUM 1 EACH TAB PO SCH (09:09)
[2021-06-16 09:53] LABS: HCT 20.5 % (39.6-50.0); HGB 6.8 g/dL (13.0-17.0); MCH 34.9 pg (27.0-32.0); MCHC 33.2 g/dL (32.0-37.0); MCV 105.1 fL (80.0-97.0); Mean Platelet Volume 9.4 fL (9.5-12.2); NRBC Per 100 WBC 0 /100 WBCS (0.0-0.0); Platelet Count 182 X 10*3/uL (140-440); RBC 1.95 X 10*6/uL (4.40-5.60); RDW 14.4 % (11.5-14.5); WBC 5.61 X 10*3/uL (4.50-10.00)
--- NOTE | 2021-06-16 18:30 | P.PN ---
Progress Note - Text Progress Note Date: 06/16/21 Postoperative day #4 Patient is seen and examined today at bedside. The patient has some pain around the surgical site as expected. Pain is being controlled with medication. He says he is feeling more comfortable with pain and more mobile. He said he got out of bed by himself today. His pain is doing better. He had a unit of blood today and he has not had any shortness breath. Physical Exam Afebrile with stable vital signs Abdomen is soft nontender. Chest has good excursion deep and space expiration The incision site is clean dry and intact. No erythema there is no purulence. There is no erythema. There is no drainage. There is some diffuse swelling but is not firm does not seem to be expanding Extremities have not had neurologic change from prior to surgery. He has sustained dorsal flexion plantarflexion and EHL intact. He is unable to lift his legs up off the bed independently. Calves and thighs were soft nontender without evidence of DVT. Hemoglobin this morning was 6.8 down from 7.4 Assessment/Plan Postoperative day #4 status post open revision decompression and fusion L2 to L5. He is starting to move better today. Patient is progressing as expected from the surgery in terms of his pain control in his mobilization. We will continue to increase the patient's mobilization with therapy. We will continue pain control with oral or IV medications. He had acute blood loss anemia and increased be stabilizing he had a unit of blood today. We'll continue to monitor this He has not yet had a bowel movement and will give him some Senna and see if he can mobilize his bowels. He is passing gas. He denies any nausea or vomiting. He would like to try to go home with home health We'll con and I think that is reasonable if he is able have a bowel movement today and to continue to increase his mobilization and his hemoglobin is stable. We will continue to follow patient closely.
[2021-06-16 19:53] LABS: Anisocytosis Slight; Basophils % (A) 0 %; Eosinophils # (A) 0.1 k/uL (0-0.7); Eosinophils % (A) 2 %; HGB 8.6 gm/dL (13.0-17.5); Lymphocytes # (A) 0.5 k/uL (1.0-4.8); Lymphocytes % (A) 8 %; MCH 34.8 pg (25.0-35.0); MCHC 33.1 g/dL (31.0-37.0); MCV 105.3 fL (80.0-100.0); Macrocytosis Moderate; Mean Platelet Volume 7.4; Monocytes # (A) 0.4 k/uL (0-1.0); Monocytes % (A) 7 %; Neutrophils # (A) 4.6 k/uL (1.3-7.7); Neutrophils % (A) 81 %; Platelet Count 252 k/uL (150-450); RBC 2.47 m/uL (4.30-5.90); RDW 16.9 % (11.5-15.5); WBC 5.6 k/uL (3.8-10.6)
[2021-06-16] MEDS: SPIRONOLACTONE 25 MG TAB PO SCH (20:59)
[2021-06-16] MEDS: TAMSULOSIN 0.4 MG CAP.ER.24H PO SCH (20:59)
[2021-06-16] MEDS: ATORVASTATIN 40 MG TAB PO SCH (20:59)
[2021-06-17] MEDS: HYDROmorphone 2 MG TAB PO PRN ×3 (00:24→14:45)
[2021-06-17] MEDS: ONDANSETRON 4 MG/2 ML VIAL IVP PRN (00:24)
--- NOTE | 2021-06-17 01:47 | P.PN ---
Subjective Progress Note Date: 06/15/[address] Calderon 06/15/2021 Patient is postoperative day 3. Status post open decompression and fusion L2-L3 and L3-L4, L4-L5 for degenerative scoliosis with stenosis and disc herniation. Patient is complaining of lower back pain. Able to stand today. With physical therapy. No fever no chills. No complaints of headache or dizziness or lightheadedness. No nausea or vomiting. Patient is able to tolerate oral diet. No bowel meant today. Laboratory data reviewed. Patient is being current pain management and bowel regimen. Current medications reviewed. Objective - Vital Signs Vital signs: Vital Signs Temp 98.4 F 06/15/21 07:40 Pulse 84 06/15/21 07:40 Resp 17 06/15/21 07:40 BP 135/75 06/15/21 07:40 Pulse Ox 97 06/15/21 07:40 Intake & Output 06/14/21 06/15/21 06/15/21 18:59 06:59 18:59 Intake Total 1150 1200 Output Total 600 Balance 550 1200 Intake: IV 750 Sodium Chloride 0.9% 1, 750 000 ml @ 75 mls/hr IV . [id number] LUCÍA Rx#:[id number] Intake, IV Titration 900 Amount Sodium Chloride 0.9% 1, 900 000 ml @ 75 mls/hr IV . [id number] LUCÍA Rx#:[id number] Oral 400 300 Output: Urine 600 Other: Voiding Method Urinal # Voids 3 - Exam PHYSICAL EXAMINATION: Patient is lying in the bed comfortably, no acute distress, awake alert and oriented.. HEENT: Normocephalic. Neck is supple. Pupils reactive. Nostrils clear. Oral cavity is moist. Neck reveals no JVD, carotid bruits, or thyromegaly. CHEST EXAMINATION: Trachea is central. Symmetrical expansion. Bibasilar diminished sounds. Lung davey clear to auscultation and percussion. CARDIAC: Normal S1, S2 with no gallops. No murmurs ABDOMEN: Soft. Bowel sounds normal. No organomegaly. No abdominal bruits. Extremities: reveal no edema. No clubbing or cyanosis Neurologically awake, alert, oriented x3 with well-coordinated movements. No focal deficits noted Skin: No rash or skin lesions. Psychiatric: Cooperative. Nonsuicidal Musculoskeletal: No joint swelling or deformity. Normal range of motion. - Labs CBC & Chem 7: 06/16/21 19:10 06/13/21 04:42 Assessment and Plan Assessment: Status post decompression and laminectomy of the L2-L3, L4-L5 and fusion. Hypertension controlled Hypertensive heart disease Mild elevated blood sugar controlled now DVT prophylaxis Plan: Patient will continue current pain management and bowel regimen. Encourage incentive spirometry. Monitor H&H. Follow-up blood sugars. Continue current management..
--- NOTE | 2021-06-17 01:48 | P.PN ---
Subjective Progress Note Date: 06/16/[address] Calderon 06/15/2021 Patient is postoperative day 3. Status post open decompression and fusion L2-L3 and L3-L4, L4-L5 for degenerative scoliosis with stenosis and disc herniation. Patient is complaining of lower back pain. Able to stand today. With physical therapy. No fever no chills. No complaints of headache or dizziness or lightheadedness. No nausea or vomiting. Patient is able to tolerate oral diet. No bowel meant today. Laboratory data reviewed. Patient is being current pain management and bowel regimen. 06/16/2021 Postoperative day 4. Patient states that his pain is better today. No complaints of chest pain or shortness of breath. Denied having bowel movement last couple days. Able to tolerate oral diet. No headache or dizziness or lightheadedness. Hemoglobin 6.8 and patient was ordered for 1 unit of PRBC. No cough or sputum production. No fever no chills. Current medications reviewed. Objective - Vital Signs Vital signs: Vital Signs Temp 97.8 F 06/16/21 15:48 Pulse 76 06/16/21 15:48 Resp 16 06/16/21 15:48 BP 144/80 06/16/21 15:48 Pulse Ox 100 06/16/21 15:48 Intake & Output 06/15/21 06/16/21 06/16/21 18:59 06:59 18:59 Intake Total 532 Output Total 1550 400 Balance -1550 132 Intake: Oral 532 Blood Product 0 Rc Pheresis As-3 Unit 0 [id number] Output: Urine 1550 400 Other: # Voids 5 5 # Bowel Movements 1 0 - Exam PHYSICAL EXAMINATION: Patient is lying in the bed comfortably, no acute distress, awake alert and oriented.. HEENT: Normocephalic. Neck is supple. Pupils reactive. Nostrils clear. Oral cavity is moist. Neck reveals no JVD, carotid bruits, or thyromegaly. CHEST EXAMINATION: Trachea is central. Symmetrical expansion. Bibasilar diminished sounds. Lung davey clear to auscultation and percussion. CARDIAC: Normal S1, S2 with no gallops. No murmurs ABDOMEN: Soft. Bowel sounds normal. No organomegaly. No abdominal bruits. Extremities: reveal no edema. No clubbing or cyanosis Neurologically awake, alert, oriented x3 with well-coordinated movements. No focal deficits noted Skin: No rash or skin lesions. Psychiatric: Cooperative. Nonsuicidal Musculoskeletal: No joint swelling or deformity. Normal range of motion. - Labs CBC & Chem 7: 06/16/21 19:10 06/13/21 04:42 Labs: Abnormal Lab Results - Last 24 Hours (Table) 06/16/21 06/16/21 Range/Units 05:12 10:49 RBC 1.95 L (4.40-5.60) X 10*6/uL Hgb 6.8 L* (13.0-17.0) g/dL Hct 20.5 L (39.6-50.0) % MCV 105.1 H (80.0-97.0) fL MCH 34.9 H (27.0-32.0) pg MPV 9.4 L (9.5-12.2) fL Crossmatch See Detail Assessment and Plan Assessment: Status post decompression and laminectomy of the L2-L3, L4-L5 and fusion. Hypertension controlled Hypertensive heart disease Mild elevated blood sugar controlled now DVT prophylaxis Plan: Patient will continue current pain management and bowel regimen. Encourage incentive spirometry. Monitor H&H. Follow-up blood sugars. Continue current management..
[2021-06-17] MEDS: SENNOSIDES-DOCUSATE SODIUM 1 EACH TAB PO SCH ×3 (11:09→12:22)
[2021-06-17] MEDS: carvediloL 12.5 MG TAB PO SCH ×2 (12:04→17:03)
[2021-06-17] MEDS: PANTOPRAZOLE 40 MG TABLET PO SCH ×2 (12:05→17:03)
[2021-06-17] MEDS: hydrALAZINE HCL 50 MG TAB PO SCH ×2 (12:05→17:03)
[2021-06-17] MEDS: SODIUM CHLORIDE 0.9% 1,000 ML IV SCH ×2 (12:20→12:22)
[2021-06-17] MEDS: HYDROcodone/APAP 10-325MG 1 EACH TAB PO PRN ×2 (12:29→17:14)
--- NOTE | 2021-06-17 12:48 | P.DS ---
Providers Date of admission: 06/14/21 12:02 Expected date of discharge: 06/17/21 Attending physician: Paul Corbett Consults: 06/12/21 14:12 Consult Physician Routine Consulting Provider: Umer Calderon Consult Reason/Comments: Medical management Do you want consulting provider notified?: Yes Primary care physician: Jesus jOeda MD - Discharge Diagnosis(es) (1) Low back pain Current Visit: Yes Status: Acute (2) Lumbar stenosis Current Visit: Yes Status: Acute (3) Lumbar degenerative disc disease Current Visit: Yes Status: Acute (4) Lumbar scoliosis Current Visit: Yes Status: Acute (5) Lower extremity weakness Current Visit: Yes Status: Acute (6) Radiculopathy with lower extremity symptoms Current Visit: Yes Status: Acute (7) Degenerative scoliosis Current Visit: Yes Status: Acute (8) Lumbar disc herniation Current Visit: Yes Status: Acute (9) History of lumbar laminectomy Current Visit: Yes Status: Acute (10) Chronic constipation Current Visit: Yes Status: Acute (11) Chronic, continuous use of opioids Current Visit: Yes Status: Acute (12) IBS (irritable bowel syndrome) Current Visit: Yes Status: Acute (13) Heart disease Current Visit: Yes Status: Acute (14) Hypertension Current Visit: Yes Status: Acute (15) Elevated cholesterol Current Visit: Yes Status: Acute (16) History of bladder cancer Current Visit: Yes Status: Acute (17) History of prostate cancer Current Visit: Yes Status: Acute (18) Obesity (BMI 30.0-34.9) Current Visit: Yes Status: Acute (19) Status post lumbar spine operative procedure for decompression of spinal cord Current Visit: Yes Status: Acute (20) Postoperative anemia Current Visit: Yes Status: Acute Hospital Course: This is a pleasant 71-year-old male who presented with L2-3, L3-4, L4-5, and L5- S1 recurrent spinal stenosis, L2-3, L3-4, L4-5, and L5-S1 history of laminectomy and decompression, L3-4 and L4-5 herniated nucleus pulposus, lumbar degenerative scoliosis, low back pain, lumbar degenerative disc disease, lower extremity weakness, and lower extremity radiculopathy who failed outpatient conservative therapy. He was admitted for an open posterior lateral decompression and fusion at L2-3, L3-4, L4-5, and L5-S1 with transforaminal lumbar interbody fusion at L3-4 and L4-5. Initially he had been progressing quite slowly postoperatively. He has continued to improve over the weekend. He states his pain is most sign ificant at his lumbar spine. This pain has improved. He is no longer requiring IV Dilaudid for pain control. He does continue with oral narcotic medications for pain control. He has been able to ambulate with the assistance of a walker. He is voiding without difficulty. He currently denies any lower extremity radiculopathy bilaterally. He does feel he would be ready for discharge home today with home health services. Home health services has been set up by case management. Patient does have known long-term narcotic use and IBS. He states he does have chronic constipation. He has not had a bowel movement since his admission to the hospital. He is not experiencing any abdominal pain or distention. He is passing gas frequently. He states it is very common for him to go an entire week without having a bowel movement. He does follow with Dr. Stahl in gastroenterology in the outpatient setting. He has been receiving Senokot during his admission to the hospital and will receive milk of magnesia as well. Yesterday he was anemic with a hemoglobin of 6.8. He received one unit in his hemoglobin has improved 8.6. Repeat lab testing has been ordered today but the results are not yet back. This was ordered by Dr. Calderon. We discussed in significant detail that the patient will be clear for discharge pending lab results and clearance by medicine. Condition on day of discharge stable. Patient will be discharged home. Patient was cleared preoperatively for surgery by Dr. Ojeda. Patient currently denies any nausea, vomiting, fever, or chills. Patient is eating and voiding freely without difficulty. Dressings have been removed over the surgical sites and patient may shower without a dressing intact at this time. Patient should refrain from driving until at least after their first follow-up appointment in the office. Patient should avoid excessive bending, lifting, and twisting; no lifting greater than 10 pounds. MAPS has been reviewed today, 06/17/2021, with an Overall Overdose Risk Score of 250. An "Opiod Start Talking" Form has been signed and placed in the patient's chart. A prescription has been written for Gillett 10 mg/325 mg 1 tab every 4 hours as needed for pain, dispense #42. He is also given a prescription for cyclobenzaprine 10 mg one tab 3 times a day as needed for muscle spasm, dispensed #60. These medications have been sent to the [facility] pharmacy located within [facility] per the patient's request. Patient should avoid anti-inflammatory medications over the next 6 weeks postoperatively. He may resume his other previous he prescribed home medications. Patient states he does not need any medications specifically for his chronic constipation as he does take medications as prescribed by Dr. tSahl in [facility] roenterology. Patient's other medical diagnoses include postoperative anemia, chronic constipation, chronic opioid use, IBS, heart disease, hypertension, elevated cholesterol, history of bladder cancer, obesity, and history of prostate cancer. Physical Exam on day of discharge: Patient is awake, alert, and oriented 3 Vital signs stable Good chest excursion with deep inspiration and expiration Abdomen soft nontender; no significant distention No signs or symptoms of DVT; no calf pain Extensor hallucis longus, plantarflexion, and dorsiflexion positive sustained bilateral lower extremities Dressing has been removed over the surgical site of the lumbar spine and from the drain site Incision is clean, dry, and intact; no erythema, purulence, or signs of infection No active drainage from the surgical sites Procedures: Open posterior lateral decompression and fusion at L2-3, L3-4, L4-5, and L5-S1 with transforaminal lumbar interbody fusion at L3-4 and L4-5 Patient Condition at Discharge: Stable Plan - Discharge Summary Discharge Rx Participant: No New Discharge Prescriptions: New Cyclobenzaprine [Flexeril] 10 mg PO TID PRN #60 tab PRN Reason: Muscle Spasm HYDROcodone/APAP 10-325MG [Gillett 10] 1 each PO Q4HR PRN #42 tab PRN Reason: Pain No Action Hydrocodone/Acetaminophen [Gillett 10-325] 1 tab PO Q4H PRN PRN Reason: Pain ALPRAZolam [Xanax] 0.25 mg PO BID Tamsulosin HCl [Flomax] 0.8 mg PO HS Atorvastatin [Lipitor] 40 mg PO HS hydrALAZINE HCL [Apresoline] 50 mg PO TID Carvedilol [Coreg] 25 mg PO BID Spironolactone 25 mg PO HS Cyclobenzaprine [Flexeril] 10 mg PO HS Omeprazole 20 mg PO BID Discharge Medication List ALPRAZolam [Xanax] 0.25 mg PO BID 10/21/18 [History] Atorvastatin [Lipitor] 40 mg PO HS 10/21/18 [History] Hydrocodone/Acetaminophen [Gillett 10-325] 1 tab PO Q4H PRN 10/21/18 [History] Tamsulosin HCl [Flomax] 0.8 mg PO HS 10/21/18 [History] hydrALAZINE HCL [Apresoline] 50 mg PO TID 12/07/19 [History] Carvedilol [Coreg] 25 mg PO BID 06/10/21 [History] Cyclobenzaprine [Flexeril] 10 mg PO HS 06/10/21 [History] Omeprazole 20 mg PO BID 06/10/21 [History] Spironolactone 25 mg PO HS 06/10/21 [History] Cyclobenzaprine [Flexeril] 10 mg PO TID PRN #60 tab 06/17/21 [Rx] HYDROcodone/APAP 10-325MG [Gillett 10] 1 each PO Q4HR PRN #42 tab 06/17/21 [Rx] Follow up Appointment(s)/Referral(s): Jayme Rutledge, GORDY [PHYSICIAN WILDLIFE MANAGER] - 2 Weeks (Patient may follow-up with Jayme Rutledge PA-C or Dr. Soy Corbett at [facility] in 2-3 weeks following discharge. ) [facility] [NON-STAFF] - As Needed Activity/Diet/Wound Care/Special Instructions: 1. Patient may shower without a dressing at this time. 2. Patient is encouraged to use a walker or other aid to aid in walking as needed 3. Patient should refrain from driving until at least after their first follow- up appointment in the office. 4. Patient should avoid excessive bending, twisting, lifting; avoid overhead lifting; no lifting greater than 10 pounds 5. Take medications as prescribed; patient may resume other previous prescribed home medications 6. Patient should avoid anti-inflammatory medications over the next 6 weeks postoperatively 7. Do not soak in tub Discharge Disposition: HOME WITH HOME HEALTH SERVICES
[2021-06-17 12:59] LABS: Anisocytosis Slight; Basophils % (A) 0 %; Eosinophils # (A) 0.2 k/uL (0-0.7); Eosinophils % (A) 3 %; HCT 25.2 % (39.0-53.0); HGB 8.2 gm/dL (13.0-17.5); Hypochromasia Slight; Lymphocytes # (A) 0.6 k/uL (1.0-4.8); Lymphocytes % (A) 11 %; MCH 35.1 pg (25.0-35.0); MCHC 32.8 g/dL (31.0-37.0); Macrocytosis Marked; Mean Platelet Volume 8.2; Monocytes # (A) 0.4 k/uL (0-1.0); Monocytes % (A) 8 %; Neutrophils # (A) 3.8 k/uL (1.3-7.7); Neutrophils % (A) 75 %; Platelet Count 246 k/uL (150-450); Poikilocytosis Slight; RBC 2.35 m/uL (4.30-5.90); RDW 17.2 % (11.5-15.5); WBC 5.1 k/uL (3.8-10.6)
[2021-06-17 15:05] VITALS: BP 163/76; PULSE 85; RESP 18; TEMP 97.6
[2021-06-17] MEDS: CYCLOBENZAPRINE 10 MG TAB PO PRN (17:15)
--- NOTE | 2021-06-22 13:25 | PN ---
PROGRESS NOTE ADDENDUM: Chronic diastolic heart failure. MMODL / IJN: [id number] /
== END 2021-06-17 19:29 | disposition home health service (06) | DRG 454 ==
LOC: OR 07:23 → 4SSUR 14:00 → OR 06-13 07:12 → OBSVTOIN 06-14 12:02
PROVIDERS: ADMIT Orthopaedic Surgery Orthopaedic Surgery of the Spine; ATTEND Orthopaedic Surgery Orthopaedic Surgery of the Spine
PROC: 0SG3071 Fusion of Lumbosacral Joint with Autologous Tissue Substitute, Posterior Approach, Posterior Column, Open Approach (ICD-10-PCS; 2021-06-12)
PROC: 0SG1071 Fusion of 2 or more Lumbar Vertebral Joints with Autologous Tissue Substitute, Posterior Approach, Posterior Column, Open Approach (ICD-10-PCS; 2021-06-12)
PROC: 0SB20ZZ Excision of Lumbar Vertebral Disc, Open Approach (ICD-10-PCS; 2021-06-12)
PROC: 0SB40ZZ Excision of Lumbosacral Disc, Open Approach (ICD-10-PCS; 2021-06-12)
PROC: 07DS3ZZ Extraction of Vertebral Bone Marrow, Percutaneous Approach (ICD-10-PCS; 2021-06-12)
PROC: 0SG10AJ Fusion of 2 or more Lumbar Vertebral Joints with Interbody Fusion Device, Posterior Approach, Anterior Column, Open Approach (ICD-10-PCS; principal; 2021-06-12 08:30)
PROC: 30233N1 Transfusion of Nonautologous Red Blood Cells into Peripheral Vein, Percutaneous Approach (ICD-10-PCS; 2021-06-16)
DX: M51.06 Intervertebral disc disorders with myelopathy, lumbar region (principal); D62 Acute posthemorrhagic anemia; I50.32 Chronic diastolic (congestive) heart failure; M48.061 Spinal stenosis, lumbar region without neurogenic claudication; M51.17 Intervertebral disc disorders with radiculopathy, lumbosacral region; E66.9 Obesity, unspecified; Z68.30 Body mass index [BMI] 30.0-30.9, adult; E78.00 Pure hypercholesterolemia, unspecified; K58.1 Irritable bowel syndrome with constipation; M51.16 Intervertebral disc disorders with radiculopathy, lumbar region; M41.80 Other forms of scoliosis, site unspecified; I11.9 Hypertensive heart disease without heart failure; Z79.82 Long term (current) use of aspirin; Z79.891 Long term (current) use of opiate analgesic; Z85.46 Personal history of malignant neoplasm of prostate; Z85.51 Personal history of malignant neoplasm of bladder
CPT/HCPCS: 72100; 80048; 80053; 85025; 85027; 85610; 85730; 86850; 86891; 86900; 86901; 86920

== ENCOUNTER 2021-12-11 08:01 | Day surgery (SDC) | payer MEDICARE, OTHER ==
[2021-12-09 16:10] VITALS: BMI 30.8
[~2021-12-11 08:01] MED LIST changes: -DEXAMETHASONE SOD PHOSPHATE 4 MG/ML 1 ML VIAL IV ONE; +LACTATED RINGERS 1,000 ML IV SCH; -ONDANSETRON 4 MG/2 ML VIAL IVP ONE; -ceFAZolin 1,000 MG in SODIUM CHLORIDE 0.9% IRRIGATIO 1,000 ML IRRIGATION PRN
[2021-12-11 08:51] VITALS: TEMP 97.5
[2021-12-11] MEDS ORDERED: PROPOFOL 10 MG/ML 20 ML VIAL IV ONE (08:54)
--- NOTE | 2021-12-11 09:15 | P.PCN ---
Date of Procedure: 12/11/21 Procedure(s) Performed: BRIEF HISTORY: Patient is a 71-year-old pleasant white male scheduled for an elective colonoscopy as a part of surveillance of form large colon polyp that was withdrawn recent colonoscopy in March of this year. He was noted to have a 3 cm polyp in the ileocecal valve that was removed by snare polypectomy and biopsies revealed tubular villous adenoma. Scheduled for a surveillance colonoscopy today. PROCEDURE PERFORMED: Colonoscopy. PREOPERATIVE DIAGNOSIS: Follow-up large ileocecal valve polyp on recent colonoscopy in March 2021. IV sedation per Anesthesia. PROCEDURE: After informed consent was obtained, the patient, was brought into the endoscopy unit. IV sedation was administered by Anesthesia under continuous monitoring. Digital rectal examination was normal. Initially the Olympus CF-160 flexible video colonoscope was then inserted in the rectum, gradually advanced into the cecum without any difficulty. Careful examination was performed as the scope was gradually being withdrawn. Ileocecal valve and the appendiceal orifice were visualized and appeared normal. Prep was excellent. On the ileocecal valve there was a 5 mm residual polyp noted that was removed by cold biopsy. I attempted performed a snare polypectomy but was not successful. Mucosa of the cecum, ascending colon, transverse colon, descending colon, sigmoid colon, and rectum appeared normal. Retroflexion was performed in the rectum and no lesions were seen. The patient tolerated the procedure well. IMPRESSION: 5 mm residual polyp noted on the ileocecal valve status post attempted snare polypectomy followed by cold biopsy Rest of the colon appeared normal. RECOMMENDATIONS: Findings of this examination were discussed with the patient as well as his family. He was advised to follow with the biopsy results. Recommend repeat surveillance colonoscopy in one year..
[2021-12-11 09:31] VITALS: BP 119/71; PULSE 83; RESP 16
== END 2021-12-11 09:59 | disposition home or self-care (01) ==
LOC: ORWHC2ENDO 08:01
PROVIDERS: ATTEND Internal Medicine Gastroenterology
DX: D12.0 Benign neoplasm of cecum (principal); E78.5 Hyperlipidemia, unspecified; I11.0 Hypertensive heart disease with heart failure; I50.9 Heart failure, unspecified; Z88.0 Allergy status to penicillin; K21.9 Gastro-esophageal reflux disease without esophagitis; I25.10 Atherosclerotic heart disease of native coronary artery without angina pectoris; Z87.891 Personal history of nicotine dependence; Z79.899 Other long term (current) drug therapy
CPT/HCPCS: 45385; 88305; 45380; J2704

== ENCOUNTER 2023-11-05 04:15 | Inpatient (IN) | payer MEDICARE, OTHER ==
--- NOTE | 2023-11-05 04:44 | ED ---
Abdominal Pain HPI - General Chief Complaint: Abdominal Pain Stated Complaint: Pancreatitis Time Seen by Provider: 11/05/23 04:23 Source: patient Mode of arrival: EMS Limitations: no limitations - History of Present Illness Initial Comments: This patient is a 73-year-old man who presents to have evaluation of upper abdominal pain. Patient arrives as a transfer from [facility]. He had gone there tonight after he had worsening upper abdominal pain. The patient was found to have exacerbation of pancreatitis. The patient states that he has had this a few times in the past. Patient denies alcohol use related to this current episode. MD Complaint: abdominal pain -: hour(s) Location: periumbilical, epigastric Radiation: none Migration to: no migration Severity: severe Quality: aching Consistency: constant Improves With: nothing Worsens With: nothing Associated Symptoms: nausea - Related Data Home Medications Medication Instructions Recorded Confirmed ALPRAZolam [Xanax] 0.25 mg PO BID 10/21/18 11/05/23 Atorvastatin [Lipitor] 40 mg PO HS 10/21/18 11/05/23 Tamsulosin HCl [Flomax] 0.4 mg PO DAILY 10/21/18 11/05/23 Cyclobenzaprine [Flexeril] 10 mg PO DAILY 06/10/21 11/05/23 carvediloL [Coreg] 25 mg PO BID 06/10/21 11/05/23 Famotidine [Pepcid] 20 mg PO DAILY 11/05/23 11/05/23 Folic Acid 1 mg PO DAILY 11/05/23 11/05/23 HYDROcodone/APAP 10-325MG [[place] 1 tab PO Q4HR PRN 11/05/23 11/05/23 10-325] Mv-Min/Folic/K1/Lycopen/Lutein 1 tab PO DAILY 11/05/23 11/05/23 [Centrum Silver Men Tablet] Pregabalin [Lyrica] 75 mg PO BID 11/05/23 11/05/23 polyethylene glycoL 3350 [Miralax] 17 gm PO DAILY PRN 11/05/23 11/05/23 Allergies Allergy/AdvReac Type Severity Reaction Status Date / Time Penicillins Allergy Rash/Hives Verified 11/05/23 10:47 Review of Systems ROS Statement: Those systems with pertinent positive or pertinent negative responses have been documented in the HPI. ROS Other: All systems not noted in ROS Statement are negative. Constitutional: Denies: fever, chills Respiratory: Denies: cough, dyspnea Cardiovascular: Denies: chest pain, palpitations, edema Gastrointestinal: Reports: abdominal pain, nausea. Denies: vomiting, diarrhea, melena, hematochezia Genitourinary: Denies: dysuria, hematuria, testicular pain Musculoskeletal: Denies: back pain Skin: Denies: rash Neurological: Reports: numbness. Denies: headache, weakness Psychiatric: Denies: anxiety, depression Past Medical History Past Medical History: Coronary Artery Disease (CAD), Cancer, Heart Failure, Hyperlipidemia, Hypertension, Prostate Disorder Additional Past Medical History / Comment(s): hx bleeding ulcer, bladder cancer, prostate cancer, rt kidney cancer History of Any Multi-Drug Resistant Organisms: None Reported Past Surgical History: Back Surgery, Coronary Bypass/CABG, Heart Catheterization, Orthopedic Surgery, Tonsillectomy Additional Past Surgical History / Comment(s): CABG X 4, 10/1998, rt knee replacement, sonja shoulder rotator cuff, neck fusion(no limitations in neck movement), lumbar laminectomy, radiation for prostate cancer, tumors removed from bladder, rt nephrectomy Past Anesthesia/Blood Transfusion Reactions: No Reported Reaction Past Psychological History: Anxiety Smoking Status: Former smoker Past Alcohol Use History: Occasional - Past Family History Mother Family Medical History: Coronary Artery Disease (CAD) General Exam Limitations: no limitations General appearance: alert, in no apparent distress Head exam: Present: atraumatic, normocephalic Eye exam: Present: normal appearance. Absent: scleral icterus, conjunctival injection Neck exam: Present: normal inspection Respiratory exam: Present: normal lung sounds bilaterally. Absent: respiratory distress, wheezes, rales, rhonchi, stridor, accessory muscle use Cardiovascular Exam: Present: regular rate, normal rhythm, normal heart sounds. Absent: systolic murmur, diastolic murmur, rubs, gallop GI/Abdominal exam: Present: soft, tenderness, normal bowel sounds. Absent: distended, guarding, rebound, rigid, mass, pulsatile mass Extremities exam: Present: normal inspection, normal capillary refill. Absent: pedal edema, calf tenderness Back exam: Present: normal inspection. Absent: CVA tenderness (R), CVA tenderness (L) Neurological exam: Present: alert Skin exam: Present: warm, dry, intact, normal color. Absent: rash Course Vital Signs 11/05/23 11/05/23 11/05/23 04:18 05:19 06:07 Temperature 97.7 F 98.5 F Pulse Rate 102 H 103 H 59 L Respiratory 19 20 20 Rate Blood Pressure 165/98 134/55 O2 Sat by Pulse 89 L 95 Oximetry 11/05/23 08:15 Temperature Pulse Rate 72 Respiratory 18 Rate Blood Pressure 132/70 O2 Sat by Pulse 98 Oximetry Medical Decision Making - Medical Decision Making Was pt. sent in by a medical professional or institution (, PA, RUST PROOFER, urgent care, hospital, or fci...) When possible be specific @ -[Patient is sent here as transfer from outside hospital Did you speak to anyone other than the patient for history (EMS, parent, family, police, friend...)? What history was obtained from this source @ -[No] Did you review nursing and triage notes (agree or disagree)? Why? @ -[I reviewed and agree with nursing and triage notes] Were old charts reviewed (outside hosp., previous admission, EMS record, old EKG, old radiological studies, urgent care reports/EKG's, fci records)? Report findings @ -[The transfer charts were reviewed] Differential Diagnosis (chest pain, altered mental status, abdominal pain women, abdominal pain men, vaginal bleeding, weakness, fever, dyspnea, syncope, headache, dizziness, GI bleed, back pain, seizure, CVA, palpatations, mental health, musculoskeletal)? @ -[Differential Abdominal Pain Men: Appendicitis, cholecystitis, diverticulosis, ischemic bowel, pancreatitis, hepatitis, UTI, gastroenteritis, AAA, incarcerated hernia, bowel obstruction, constipation, inflammatory bowel, hepatitis, peptic ulcer disease, splenic infarction, perforated viscus, testicular torsion, this is not meant to be an all-inclusive list EKG interpreted by me (3pts min.). @ -[As above] X-rays interpreted by me (1pt min.). @ -[None done] CT interpreted by me (1pt min.). @ -[None done] U/S interpreted by me (1pt. min.). @ -[None done] What testing was considered but not performed or refused? (CT, X-rays, U/S, labs)? Why? @ -[None] What meds were considered but not given or refused? Why? @ -[None] Did you discuss the management of the patient with other professionals (professionals i.e. , PA, RUST PROOFER, lab, RT, psych nurse, 7th grade social studies teacher, supervisor net making, teacher, fundraising officer, bilingual patient support caseworker)? Give summary @ -[Case discussed with admitting physician and treatment recommendations are incorporated Was smoking cessation discussed for >3mins.? @ -[No] Was critical care preformed (if so, how long)? @ -[No] Were there social determinants of health that impacted care today? How? (Homelessness, low income, unemployed, alcoholism, drug addiction, tra nsportation, low edu. Level, literacy, decrease access to med. care, halfway, rehab)? @ -[No] Was there de-escalation of care discussed even if they declined (Discuss DNR or withdrawal of care, Hospice)? DNR status @ -[No] What co-morbidities impacted this encounter? (DM, HTN, Smoking, COPD, CAD, Can cer, CVA, ARF, Chemo, Hep., AIDS, mental health diagnosis, sleep apnea, morbid obesity)? @ -[Previous pancreatitis Was patient admitted / discharged? Hospital course, mention meds given and route, prescriptions, significant lab abnormalities, going to OR and other pertinent info. @ -[Patient is 73-year-old man transferred here to have further evaluation and treatment for pancreatitis. Undiagnosed new problem with uncertain prognosis? @ -[No] Drug Therapy requiring intensive monitoring for toxicity (Heparin, Nitro, Insulin, Cardizem)? @ -[No] Were any procedures done? @ -[No] Diagnosis/symptom? @ -[Acute pancreatitis Acute, or Chronic, or Acute on Chronic? @ -[Acute Uncomplicated (without systemic symptoms) or Complicated (systemic symptoms)? @ -[Uncomplicated Side effects of treatment? @ -[No] Exacerbation, Progression, or Severe Exacerbation? @ -[No] Poses a threat to life or bodily function? How? (Chest pain, USA, ME, pneumonia, PE, COPD, DKA, ARF, appy, cholecystitis, CVA, Diverticulitis, Homicidal, Suicidal, threat to staff... and all critical care pts) @ -[Low risk - Lab Data Result diagrams: 11/07/23 03:02 11/08/23 11:29 Lab Results 11/05/23 11/05/23 11/05/23 Range/Units 05:18 05:18 05:18 WBC 15.2 H (3.8-10.6) k/uL RBC 4.12 L (4.30-5.90) m/uL Hgb 13.0 (13.0-17.5) gm/dL Hct 39.4 (39.0-53.0) % MCV 95.6 (80.0-100.0) fL MCH 31.7 (25.0-35.0) pg MCHC 33.1 (31.0-37.0) g/dL RDW 14.4 (11.5-15.5) % Plt Count 224 (150-450) k/uL MPV 8.1 Neutrophils % 91 % Lymphocytes % 3 % Monocytes % 5 % Eosinophils % 0 % Basophils % 0 % Neutrophils # 13.7 H (1.3-7.7) k/uL Lymphocytes # 0.5 L (1.0-4.8) k/uL Monocytes # 0.8 (0-1.0) k/uL Eosinophils # 0.1 (0-0.7) k/uL Basophils # 0.0 (0-0.2) k/uL Sodium 133 L (137-145) mmol/L Potassium 5.6 H (3.5-5.1) mmol/L Chloride 106 (98-107) mmol/L Carbon Dioxide 17 L (22-30) mmol/L Anion Gap 10 mmol/L BUN 27 H (9-20) mg/dL Creatinine 1.55 H (0.66-1.25) mg/dL Est GFR (CKD-EPI)AfAm 51 (>60 ml/min/1.73 sqM) Est GFR (CKD-EPI)NonAf 44 (>60 ml/min/1.73 sqM) Glucose 104 H (74-99) mg/dL Calcium 9.9 (8.4-10.2) mg/dL Total Bilirubin 1.0 (0.2-1.3) mg/dL AST 29 (17-59) U/L ALT 16 (4-49) U/L Alkaline Phosphatase 66 (38-126) U/L Total Protein 6.6 (6.3-8.2) g/dL Albumin 3.8 (3.5-5.0) g/dL Triglycerides 174.00 H (0.00-149.00) mg/dL Cholesterol (0.00-200.00) mg/dL LDL Cholesterol, Calc (0.0-131.0) mg/dL VLDL Cholesterol, Calc (5.00-40.00) mg/dL HDL Cholesterol (40.00-60.00) mg/dL Cholesterol/HDL Ratio Ratio Amylase 1125 H* (30-110) U/L Lipase 91076 H (23-300) U/L Urine Color Urine Appearance (Clear) Urine pH (5.0-8.0) Ur Specific [place] (1.001-1.035) Urine Protein (Negative) Urine Glucose (UA) (Negative) Urine Ketones (Negative) Urine Blood (Negative) Urine Nitrite (Negative) Urine Bilirubin (Negative) Urine Urobilinogen (<2.0) mg/dL Ur Leukocyte Esterase (Negative) Urine RBC (0-5) /hpf Urine WBC (0-5) /hpf Ur Squamous Epith Cells (0-4) /hpf Hyaline Casts (0-2) /lpf IgG1 (382.40-928.60) mg/dL IgG2 (241.80-700.30) mg/dL IgG3 (21.82-176.00) mg/dL IgG4 (3.92-86.40) mg/dL VIVIANA Screen (Negative) 11/05/23 11/05/23 11/05/23 Range/Units 05:18 05:18 06:10 WBC (3.8-10.6) k/uL RBC (4.30-5.90) m/uL Hgb (13.0-17.5) gm/dL Hct (39.0-53.0) % MCV (80.0-100.0) fL MCH (25.0-35.0) pg MCHC (31.0-37.0) g/dL RDW (11.5-15.5) % Plt Count (150-450) k/uL MPV Neutrophils % % Lymphocytes % % Monocytes % % Eosinophils % % Basophils % % Neutrophils # (1.3-7.7) k/uL Lymphocytes # (1.0-4.8) k/uL Monocytes # (0-1.0) k/uL Eosinophils # (0-0.7) k/uL Basophils # (0-0.2) k/uL Sodium (137-145) mmol/L Potassium (3.5-5.1) mmol/L Chloride (98-107) mmol/L Carbon Dioxide (22-30) mmol/L Anion Gap mmol/L BUN (9-20) mg/dL Creatinine (0.66-1.25) mg/dL Est GFR (CKD-EPI)AfAm (>60 ml/min/1.73 sqM) Est GFR (CKD-EPI)NonAf (>60 ml/min/1.73 sqM) Glucose (74-99) mg/dL Calcium (8.4-10.2) mg/dL Total Bilirubin (0.2-1.3) mg/dL AST (17-59) U/L ALT (4-49) U/L Alkaline Phosphatase (38-126) U/L Total Protein (6.3-8.2) g/dL Albumin (3.5-5.0) g/dL Triglycerides 176.00 H (0.00-149.00) mg/dL Cholesterol 165.00 (0.00-200.00) mg/dL LDL Cholesterol, Calc 68.1 (0.0-131.0) mg/dL VLDL Cholesterol, Calc 35.20 (5.00-40.00) mg/dL HDL Cholesterol 61.70 H (40.00-60.00) mg/dL Cholesterol/HDL Ratio 2.67 Ratio Amylase (30-110) U/L Lipase (23-300) U/L Urine Color Light Yellow Urine Appearance Clear (Clear) Urine pH 5.5 (5.0-8.0) Ur Specific [place] 1.017 (1.001-1.035) Urine Protein 1+ H (Negative) Urine Glucose (UA) Negative (Negative) Urine Ketones Negative (Negative) Urine Blood Negative (Negative) Urine Nitrite Negative (Negative) Urine Bilirubin Negative (Negative) Urine Urobilinogen <2.0 (<2.0) mg/dL Ur Leukocyte Esterase Negative (Negative) Urine RBC 5 (0-5) /hpf Urine WBC 2 (0-5) /hpf Ur Squamous Epith Cells 2 (0-4) /hpf Hyaline Casts 4 H (0-2) /lpf IgG1 543.20 (382.40-928.60) mg/dL IgG2 215.20 L (241.80-700.30) mg/dL IgG3 118.70 (21.82-176.00) mg/dL IgG4 16.30 (3.92-86.40) mg/dL VIVIANA Screen Negative (Negative) Disposition Clinical Impression: Acute pancreatitis Disposition: ADMITTED IP TO THIS HOSP Condition: Fair Is patient prescribed a controlled substance at d/c from ED?: No
[2023-11-05] MEDS: SODIUM CHLORIDE 0.9% 1,000 ML IV STA (05:12)
[2023-11-05] MEDS: HYDROmorphone 1 MG/ML 1 ML SYRINGE IVP STA ×3 (05:12→06:13)
[2023-11-05 05:39] LABS: Basophils % (A) 0 %; Eosinophils # (A) 0.1 k/uL (0-0.7); Eosinophils % (A) 0 %; HCT 39.4 % (39.0-53.0); Lymphocytes # (A) 0.5 k/uL (1.0-4.8); Lymphocytes % (A) 3 %; MCH 31.7 pg (25.0-35.0); MCHC 33.1 g/dL (31.0-37.0); MCV 95.6 fL (80.0-100.0); Mean Platelet Volume 8.1; Monocytes # (A) 0.8 k/uL (0-1.0); Monocytes % (A) 5 %; Neutrophils # (A) 13.7 k/uL (1.3-7.7); Neutrophils % (A) 91 %; Platelet Count 224 k/uL (150-450); RBC 4.12 m/uL (4.30-5.90); RDW 14.4 % (11.5-15.5); WBC 15.2 k/uL (3.8-10.6)
[2023-11-05 06:05] LABS: ALT 16 U/L (4-49); AST 29 U/L (17-59); African American GFR (CKD) 51 (>60 ml/min/1.73 sqM); Albumin 3.8 g/dL (3.5-5.0); Alkaline Phosphatase 66 U/L (38-126); Anion Gap 10 mmol/L; Blood Urea Nitrogen 27 mg/dL (9-20); Calcium 9.9 mg/dL (8.4-10.2); Carbon Dioxide 17 mmol/L (22-30); Chloride 106 mmol/L (98-107); Glucose 104 mg/dL (74-99); Non-African American GFR(CKD) 44 (>60 ml/min/1.73 sqM); Potassium 5.6 mmol/L (3.5-5.1); Sodium 133 mmol/L (137-145); Total Protein 6.6 g/dL (6.3-8.2)
[2023-11-05 06:21] LABS: Appearance,Urine Clear (Clear); Bilirubin,Urine Negative (Negative); Blood,Urine Negative (Negative); Color,Urine Light Yellow; Glucose,Urine (UA) Negative (Negative); Hyaline Casts,Urine 4 /lpf (0-2); Ketones,Urine Negative (Negative); Leukocyte Esterase,Urine Negative (Negative); Nitrite,Urine Negative (Negative); PH, Urine 5.5 (5.0-8.0); Protein,Urine 1+ (Negative); RBC,Urine 5 /hpf (0-5); Specific Gravity,Urine 1.017 (1.001-1.035); Squamous Epithelial Cell,Urine 2 /hpf (0-4); Urobilinogen,Urine <2.0 mg/dL (<2.0); WBC,Urine 2 /hpf (0-5)
[2023-11-05 06:53] LABS: Lipase 17163 U/L (23-300)
[2023-11-05] MEDS ORDERED: ONDANSETRON 4 MG/2 ML VIAL IVP PRN (07:18)
[2023-11-05] MEDS ORDERED: NALOXONE 0.4 MG/ML 1 ML VIAL IV PRN (07:18)
[2023-11-05] MEDS ORDERED: HYDROmorphone 1 MG/ML 1 ML SYRINGE IVP PRN (07:18)
--- NOTE | 2023-11-05 09:17 | US ---
EXAMINATION TYPE: US abdomen limited DATE OF EXAM: 11/05/2023 COMPARISON: NONE CLINICAL INDICATION: Male, 73 years old with history of attention RUQ, pancreatitis; pain pancreatiti s, right kidney previously removed for CA TECHNIQUE: Multiple sonographic images of the right upper quadrant are obtained. FINDINGS: EXAM MEASUREMENTS: Liver Length: 17.1 cm Gallbladder Wall: .4 cm CBD: .6 cm Right Kidney: Surgically absent Pancreas: Obscured by bowel gas Liver: Increased attenuation, echogenic and borderline in size. No focal lesion identified. Gallbladder: Either artifact or mild gallbladder sludge. No shadowing stones. There may be related t o mild gallbladder wall thickening. Evidence for sonographic Gil's sign: no CBD: Borderline caliber. Right Kidney: Surgically absent IMPRESSION: 1. Borderline hepatomegaly with moderate hepatic steatosis. Correlate with LFTs, lipid profile, and t he supraspinatus. 2. Mild gallbladder wall thickening is nonspecific. No gallstones or hydropic change. 3. Borderline caliber to the bile duct at 6 mm, acceptable given the patient's age. 4. Unable to visualize the pancreas due to bowel gas. Right kidney surgically absent.
[2023-11-05] MEDS: carvediloL 12.5 MG TAB PO SCH (09:40)
[2023-11-05] MEDS: SODIUM CHLORIDE 0.9% 1,000 ML IV SCH ×2 (09:40→16:26)
[2023-11-05] MEDS: PANTOPRAZOLE 40 MG/10 ML VIAL IV SCH (09:40)
[2023-11-05] MEDS: MORPHINE SULFATE 4 MG/ML SYRINGE IV PRN (10:35)
--- NOTE | 2023-11-05 12:25 | P.CONS ---
History of Present Illness - Reason for Consult Consult date: 11/05/23 Pancreatitis Requesting physician: Konstantin Mendiola - Chief Complaint Abdominal pain - History of Present Illness This is a pleasant 73-year-old male who was transferred from [facility] with complaints of abdominal pain. States that the pain felt like previous episodes of pancreatitis so he went in to be evaluated. He was noted to have elevated amylase and lipase and CT of the abdomen pelvis reporting acute pancreatitis. He was transferred here for further treatment and evaluation by gastroenterology. He states pain is still quite significant. It is in the upper abdomen. He states this is his fourth episode of pancreatitis with the first episode being about 25 years ago then 10 years following and then about 5 years ago. He is unclear why he has had pancreatitis. States that he has been seen in [place] and in [place]. He is not currently following anybody for pancreatitis. He denies any alcohol use now or in the past. No new medications reported. Past medical history includes coronary artery disease, bladder cancer prostate cancer and renal cancer status post right nephrectomy, heart failure hyperlipidemia and hypertension. Denies any nausea or vomiting associated with abdominal pain. No fevers or chills. He did have leukocytosis on admission with normal LFTs elevated amylase at 1125 and lipase 17 163. Ultrasound of the abdomen reports borderline hepatomegaly with moderate hepatic steatosis. Correlate with LFTs, lipid profile in the supraspinatus mild gallbladder wall thickening nonspecific no gallstones or hydropic change. Borderline caliber bile duct at 6 mm acceptable given patient's age. Unable to visualize the pancreas due to bowel gas. Right kidney surgically absent. Review of Systems REVIEW OF SYSTEMS: CARDIOPULMONARY: No chest pain or shortness of breath. Gastrointestinal: Abdominal pain. No nausea or vomiting. No hematemesis, coffee-ground emesis. No rectal bleeding, or melena. GENITOURINARY: No dysuria or hematuria. MUSCULOSKELETAL: Reports normal range of motion., Joint pain. SKIN: No rashes. No jaundice. ENDOCRINE: No chills, fevers. No excessive weight gain or loss. No polydipsia or polyuria. PSYCHIATRIC: Unremarkable. NEUROLOGY: No change in mental status. Denies dizziness, headache. ENT: Vision unremarkable. CONSTITUTIONAL: No recent weight loss. No fever, chills, night sweats. Past Medical History Past Medical History: Coronary Artery Disease (CAD), Cancer, Heart Failure, Hyperlipidemia, Hypertension, Prostate Disorder Additional Past Medical History / Comment(s): hx bleeding ulcer, bladder cancer, prostate cancer, rt kidney cancer History of Any Multi-Drug Resistant Organisms: None Reported Past Surgical History: Back Surgery, Coronary Bypass/CABG, Heart Catheterization, Orthopedic Surgery, Tonsillectomy Additional Past Surgical History / Comment(s): CABG X 4, 10/1998, rt knee replacement, sonja shoulder rotator cuff, neck fusion(no limitations in neck movement), lumbar laminectomy, radiation for prostate cancer, tumors removed from bladder, rt nephrectomy Past Anesthesia/Blood Transfusion Reactions: No Reported Reaction Past Psychological History: Anxiety Smoking Status: Former smoker Past Alcohol Use History: Occasional - Past Family History Mother Family Medical History: Coronary Artery Disease (CAD) Medications and Allergies Home Medications Medication Instructions Recorded Confirmed Type ALPRAZolam [Xanax] 0.25 mg PO BID 10/21/18 11/05/23 History Atorvastatin [Lipitor] 40 mg PO HS 10/21/18 11/05/23 History Tamsulosin HCl [Flomax] 0.4 mg PO DAILY 10/21/18 11/05/23 History Cyclobenzaprine [Flexeril] 10 mg PO DAILY 06/10/21 11/05/23 History Spironolactone 25 mg PO BID 06/10/21 11/05/23 History carvediloL [Coreg] 25 mg PO BID 06/10/21 11/05/23 History Famotidine [Pepcid] 20 mg PO DAILY 11/05/23 11/05/23 History Folic Acid 1 mg PO DAILY 11/05/23 11/05/23 History HYDROcodone/APAP 10-325MG [[place] 1 tab PO Q4HR PRN 11/05/23 11/05/23 History 10] Mv-Min/Folic/K1/Lycopen/Lutein 1 tab PO DAILY 11/05/23 11/05/23 History [Centrum Silver Men Tablet] Pregabalin [Lyrica] 75 mg PO BID 11/05/23 11/05/23 History hydroCHLOROthiazide [Hydrodiuril] 25 mg PO BID 11/05/23 11/05/23 History polyethylene glycoL 3350 [Miralax] 17 gm PO DAILY PRN 11/05/23 11/05/23 History Allergies Allergy/AdvReac Type Severity Reaction Status Date / Time Penicillins Allergy Rash/Hives Verified 11/05/23 10:47 Physical Exam Vitals: Vital Signs Temp Pulse Resp BP Pulse Ox 11/05/23 08:15 72 18 132/70 98 11/05/23 06:07 59 L 20 134/55 95 11/05/23 05:19 98.5 F 103 H 20 165/98 11/05/23 04:18 97.7 F 102 H 19 89 L Intake and Output 11/04/23 11/05/23 11/05/23 22:59 06:59 14:59 Other: Weight 97.522 kg General appearance: The patient is alert, oriented, appears in no acute distress. HET: Head is normocephalic and atraumatic. Conjunctiva pink. Sclera anicteric. Neck: Supple without lymphadenopathy. Trachea midline. Heart: Regular. Lungs: Equal expansion, normal respiratory effort. Abdomen: Soft, upper abdominal tenderness, nondistended. Skin: No rashes. No jaundice. Extremities: Normal skin color and turgor. No pedal edema. Neurological: No focal deficits. Alert and oriented x3. Results CBC & Chem 7: 11/05/23 05:18 11/05/23 05:18 Labs: Abnormal Lab Results - Last 24 Hours (Table) 11/05/23 11/05/23 11/05/23 Range/Units 05:18 05:18 06:10 WBC 15.2 H (3.8-10.6) k/uL RBC 4.12 L (4.30-5.90) m/uL Neutrophils # 13.7 H (1.3-7.7) k/uL Lymphocytes # 0.5 L (1.0-4.8) k/uL Sodium 133 L (137-145) mmol/L Potassium 5.6 H (3.5-5.1) mmol/L Carbon Dioxide 17 L (22-30) mmol/L BUN 27 H (9-20) mg/dL Creatinine 1.55 H (0.66-1.25) mg/dL Glucose 104 H (74-99) mg/dL Amylase 1125 H* (30-110) U/L Lipase 53768 H (23-300) U/L Urine Protein 1+ H (Negative) Hyaline Casts 4 H (0-2) /lpf Comments: Ultrasound of the abdomen reports borderline hepatomegaly with moderate hepatic steatosis. Correlate with LFTs, lipid profile in the supraspinatus mild gallbladder wall thickening nonspecific no gallstones or hydropic change. Borderline caliber bile duct at 6 mm acceptable given patient's age. Unable to visualize the pancreas due to bowel gas. Right kidney surgically absent. CT abdomen and pelvis without contrast reports acute interstitial edematous pancreatitis. Assessment and Plan (1) Acute pancreatitis Narrative/Plan: 73-year-old male presenting with acute pancreatitis unknown etiology. Denies any history of alcoholism no new medications. Does have a significant history of cancer including bladder, renal and prostate. First episode about 25 years ago with last episode about 5 years ago again he is unclear on etiology. Not following with anybody from gastroenterology for history of pancreatitis. Will plan symptomatic and supportive treatment. Will obtain triglyceride, VIVIANA and IgG4. Current Visit: Yes Status: Acute Code(s): K85.90 - ACUTE PANCREATITIS WITHOUT NECROSIS OR INFECTION, UNSP SNOMED Code(s): 232073339 (2) History of nephrectomy, right Current Visit: Yes Status: Acute Code(s): Z90.5 - ACQUIRED ABSENCE OF KIDNEY SNOMED Code(s): 17089774202437 (3) Heart disease Current Visit: No Status: Acute Code(s): I51.9 - HEART DISEASE, UNSPECIFIED SNOMED Code(s): 64447882 (4) History of bladder cancer Current Visit: No Status: Acute Code(s): Z85.51 - PERSONAL HISTORY OF MAL IGNANT NEOPLASM OF BLADDER SNOMED Code(s): 783103856 (5) History of prostate cancer Current Visit: No Status: Acute Code(s): Z85.46 - PERSONAL HISTORY OF MALIGNANT NEOPLASM OF PROSTATE SNOMED Code(s): 048509980 Plan: 1. Continue symptomatic and supportive care 2. Clear liquid diet in moderation 3. Continue with IV hydration 4. Pain medication as needed 5. Antiemetics as needed 6. IgG4, VIVIANA and triglycerides ordered 5. Repeat in morning CBC, CMP, amylase and lipase Thank you for this consultation, we will continue to follow. Dr. Damon Stahl I agree with the dictator's note, documented as a scribe by Heather England.
--- NOTE | 2023-11-05 13:32 | P.HPIM ---
History of Present Illness H&P Date: 11/05/23 73 year-old man presented to the ED with complaints of upper abdominal pain. He arrived as a transfer from [facility] where he had gone as a result of worsening upper abdominal pain. Patient was found to be having an exacerbation of pancreatitis. Which the patient states he has had "a few times before". Patient denies alcohol use related to this current episode. He endorses a past medical history of previous episodes of pancreatitis, CAD w/CABG X 4 (1998), HF, HTN, HLD, Cancer (prostate). Patient has been placed on a clear liquid diet, has received a total of 2 mg Dilaudid for pain control and is currently receiving 75 ml/hr NS. Dilaudid 1 mg, Morphine Sulfate 4 mg both available for pain control as needed. Patient states he still is currently in quite a bit of pain. He states that his had episodes similar to this before, most recently being ~5 years ago and states that this pain was basically the same. On arrival at [facility] he was noted to have increased marek lase and lipase and CT of the abdomen/pelvis reports acute pancreatitis. He has had pancreatitis on a few occasions dating back as far as about 25 years ago, per the patient, he denies any alcohol use and endorses no new medications. He endorses having some vomiting at home prior to coming to the hospital, no evidence hematemesis. On arrival he had leukocytosis, WBCs 15.2, normal LFTs, amylase 1,125 and lipase 17,163. Abdominal ultrasound completed here noted hepatomegaly with moderate hepatic steatosis - should correlate with LFTs, lipid profile - in the supraspinatus, mild gallbladder wall thickening, borderline caliber of the bile duct at 6 mm, and inability to visualize the pancreas due to bowel gas. Initial lab work done in the ER showed WBCs 15.2, Hgb 13, Hct 39.4, PLT 224, Na 133, K 5.6, HCO3 17, BUN 27, Cr 1.55, Amylase 1,125, Lipase 17,163. UA showed 1+ protein and 4 hyaline casts. EKG done in the ER showed heart rate of 148, A fib w/RVR, Right axis deviation, Low voltage QRS, Moderate ST depression Abdominal ultrasound completed here noted hepatomegaly with moderate hepatic steatosis - should correlate with LFTs, lipid profile - in the supraspinatus, mild gallbladder wall thickening, borderline caliber of the bile duct at 6 mm, and inability to visualize the pancreas due to bowel gas Patient admitted to internal medicine service REVIEW OF SYSTEMS: CONSTITUTIONAL: No fever, no malaise, no fatigue. HEENT: No recent visual problems or hearing problems. Denied any sore throat. CARDIOVASCULAR: No chest pain, orthopnea, PND, no palpitations, no syncope. PULMONARY: No shortness of breath, no cough, no hemoptysis. GASTROINTESTINAL: Endorses episodes of vomiting prior to arrival in the emergency department, at the start of his episode of pancreatitis. Denies hematemesis. NEUROLOGICAL: No headaches, no weakness, no numbness. HEMATOLOGICAL: Denies any bleeding or petechiae. GENITOURINARY: Denies any burning micturition, frequency, or urgency. MUSCULOSKELETAL/RHEUMATOLOGICAL: Denies any joint pain, swelling, or any muscle pain. ENDOCRINE: Denies any polyuria or polydipsia. The rest of the 14-point review of systems is negative. PHYSICAL EXAMINATION: GENERAL: The patient is alert and oriented x3, in moderate distress due to his abdominal discomfort. Well developed, well nourished. HEENT: Pupils are round and equally reacting to light. EOMI. No scleral icterus. No conjunctival pallor. Normocephalic, atraumatic. No pharyngeal erythema. No thyromegaly. CARDIOVASCULAR: S1 and S2 present. No murmurs, rubs, or gallops. PULMONARY: Chest is clear to auscultation, no wheezing or crackles. ABDOMEN: Mildly tender abdomen, mainly in the mid epigastric area. With distention. MUSCULOSKELETAL: No joint swelling or deformity. EXTREMITIES: No cyanosis, clubbing, or pedal edema. NEUROLOGICAL: Gross neurological examination did not reveal any focal deficits. SKIN: No rashes. Assessment and plan # Acute Pancreatitis Patient with a history of multiple episodes of pancreatitis Amylase, lipase both elevated on arrival at [facility], CT scan done which endorsed acute pancreatitis Abdominal ultrasound completed here noted hepatomegaly with moderate hepatic steatosis - should correlate with LFTs, lipid profile - in the supraspinatus, mild gallbladder wall thickening, borderline caliber of the bile duct at 6 mm, and inability to visualize the pancreas due to bowel gas Clear liquid diet in moderation, continuing IV hydration Per GIs recommendation IgG4, VIVIANA and triglycerides ordered Pain medication as needed Antiemetics as needed Continue IV hydration with 100 mL/h normal saline Continue patient's Flomax, Coreg, Lyrica GI prophylaxis: Protonix 40 mg daily Continue to monitor vital signs, monitor CBC, monitor CMP,. Labs and medication were reviewed. Continue with symptomatic treatment. DVT and GI prophylaxis. Dictation was produced using [employer] dictation software. please excuse any grammatical, word or spelling errors. Past Medical History Past Medical History: Coronary Artery Disease (CAD), Cancer, Heart Failure, Hyperlipidemia, Hypertension, Prostate Disorder Additional Past Medical History / Comment(s): hx bleeding ulcer, bladder cancer, prostate cancer, rt kidney cancer History of Any Multi-Drug Resistant Organisms: None Reported Past Surgical History: Back Surgery, Coronary Bypass/CABG, Heart Catheterization, Orthopedic Surgery, Tonsillectomy Additional Past Surgical History / Comment(s): CABG X 4, 10/1998, rt knee replacement, sonja shoulder rotator cuff, neck fusion(no limitations in neck move ment), lumbar laminectomy, radiation for prostate cancer, tumors removed from bladder, rt nephrectomy Past Anesthesia/Blood Transfusion Reactions: No Reported Reaction Past Psychological History: Anxiety Smoking Status: Former smoker Past Alcohol Use History: Occasional - Past Family History Mother Family Medical History: Coronary Artery Disease (CAD) Medications and Allergies Home Medications Medication Instructions Recorded Confirmed Type ALPRAZolam [Xanax] 0.25 mg PO BID 10/21/18 11/05/23 History Atorvastatin [Lipitor] 40 mg PO HS 10/21/18 11/05/23 History Tamsulosin HCl [Flomax] 0.4 mg PO DAILY 10/21/18 11/05/23 History Cyclobenzaprine [Flexeril] 10 mg PO DAILY 06/10/21 11/05/23 History Spironolactone 25 mg PO BID 06/10/21 11/05/23 History carvediloL [Coreg] 25 mg PO BID 06/10/21 11/05/23 History Famotidine [Pepcid] 20 mg PO DAILY 11/05/23 11/05/23 History Folic Acid 1 mg PO DAILY 11/05/23 11/05/23 History HYDROcodone/APAP 10-325MG [[place] 1 tab PO Q4HR PRN 11/05/23 11/05/23 History 10] Mv-Min/Folic/K1/Lycopen/Lutein 1 tab PO DAILY 11/05/23 11/05/23 History [Centrum Silver Men Tablet] Pregabalin [Lyrica] 75 mg PO BID 11/05/23 11/05/23 History hydroCHLOROthiazide [Hydrodiuril] 25 mg PO BID 11/05/23 11/05/23 History polyethylene glycoL 3350 [Miralax] 17 gm PO DAILY PRN 11/05/23 11/05/23 History Allergies Allergy/AdvReac Type Severity Reaction Status Date / Time Penicillins Allergy Rash/Hives Verified 11/05/23 10:47 Physical Exam Vitals: Vital Signs Temp Pulse Resp BP Pulse Ox 11/05/23 08:15 72 18 132/70 98 11/05/23 06:07 59 L 20 134/55 95 11/05/23 05:19 98.5 F 103 H 20 165/98 11/05/23 04:18 97.7 F 102 H 19 89 L Intake and Output 11/04/23 11/05/23 11/05/23 22:59 06:59 14:59 Other: Weight 97.522 kg Results CBC & Chem 7: 11/05/23 05:18 11/05/23 05:18 Labs: Abnormal Lab Results - Last 24 Hours (Table) 11/05/23 11/05/23 11/05/23 Range/Units 05:18 05:18 06:10 WBC 15.2 H (3.8-10.6) k/uL RBC 4.12 L (4.30-5.90) m/uL Neutrophils # 13.7 H (1.3-7.7) k/uL Lymphocytes # 0.5 L (1.0-4.8) k/uL Sodium 133 L (137-145) mmol/L Potassium 5.6 H (3.5-5.1) mmol/L Carbon Dioxide 17 L (22-30) mmol/L BUN 27 H (9-20) mg/dL Creatinine 1.55 H (0.66-1.25) mg/dL Glucose 104 H (74-99) mg/dL Amylase 1125 H* (30-110) U/L Lipase 09647 H (23-300) U/L Urine Protein 1+ H (Negative) Hyaline Casts 4 H (0-2) /lpf
[2023-11-05] MEDS: PREGABALIN 75 MG CAP PO SCH (16:25)
[2023-11-05] MEDS: TAMSULOSIN 0.4 MG CAP.ER.24H PO SCH (22:14)
[2023-11-06] MEDS: MAG HYDROX/AL HYDROX/SIMETH 30 ML CUP PO PRN (05:47)
[2023-11-06] MEDS: MORPHINE SULFATE 4 MG/ML SYRINGE IVP PRN (08:39)
[2023-11-06 08:44] LABS: HCT 34.6 % (39.6-50.0); HGB 11.4 g/dL (13.0-17.0); MCH 30.9 pg (27.0-32.0); MCHC 32.9 g/dL (32.0-37.0); MCV 93.8 FL (80.0-97.0); Mean Platelet Volume 10.1 FL (9.5-12.2); NRBC Per 100 WBC 0.02 X 10*3/uL (0.00-0.01); Platelet Count 156 X 10*3/uL (140-440); RBC 3.69 X 10*6/uL (4.40-5.60); RDW 14.1 % (11.5-14.5); WBC 16.27 X 10*3/uL (4.50-10.00)
[2023-11-06 08:47] LABS: ALT 15 U/L (10-49); AST 43 U/L (14-35); Albumin 3.6 g/dL (3.8-4.9); Albumin/Globulin Ratio 1.57 Ratio (1.60-3.17); Alkaline Phosphatase 54 U/L (41-126); Blood Urea Nitrogen 31.5 mg/dL (9.0-27.0); Calcium 8.7 mg/dL (8.7-10.3); Chloride 102 mmol/L (96-109); Globulin 2.3 g/dL (1.6-3.3); Glucose 97 mg/dL (70-110); Potassium 4.8 mmol/L (3.5-5.5); Sodium 130 mmol/L (135-145); Total Bilirubin 0.6 mg/dL (0.3-1.2); Total Protein 5.9 g/dL (6.2-8.2)
[2023-11-06 09:04] LABS: Lipase 1025 U/L (14-60)
[2023-11-06 09:25] LABS: Basophils # (A) 0.03 X 10*3/uL (0.00-0.10); Basophils % (A) 0.2 %; Eosinophils # (A) 0 X 10*3/uL (0.04-0.35); Eosinophils % (A) 0 %; Lymphocytes # (A) 0.56 X 10*3/uL (0.90-5.00); Lymphocytes % (A) 3.4 %; Monocytes # (A) 1.38 X 10*3/uL (0.20-1.00); Monocytes % (A) 8.5 %; Neutrophils # (A) 14.23 X 10*3/uL (1.80-7.70); Neutrophils % (A) 87.5 %
[2023-11-06 09:35] LABS: Amylase 696 U/L (23-121)
--- NOTE | 2023-11-06 10:52 | P.PN ---
Subjective Progress Note Date: 11/06/23 Principal diagnosis: Acute pancreatitis This is a pleasant 73-year-old male who was transferred from [facility] with complaints of abdominal pain. States that the pain felt like previous episodes of pancreatitis so he went in to be evaluated. He was noted to have elevated amylase and lipase and CT of the abdomen pelvis reporting acute pancreatitis. He was transferred here for further treatment and evaluation by gastroenterology. He states pain is still quite significant. It is in the upper abdomen. He states this is his fourth episode of pancreatitis with the first episode being about 25 years ago then 10 years following and then about 5 years ago. He is unclear why he has had pancreatitis. States that he has been seen in [place] and in [place]. He is not currently following anybody for pancreatitis. He denies any alcohol use now or in the past. No new medications reported. Past medical history includes coronary artery disease, bladder cancer prostate cancer and renal cancer status post right nephrectomy, heart failure hyperlipidemia and hypertension. Denies any nausea or vomiting associated with abdominal pain. No fevers or chills. He did have leukocytosis on admission with normal LFTs elevated amylase at 1125 and lipase 17 163. Ultrasound of the abdomen reports borderline hepatomegaly with moderate hepatic steatosis. Correlate with LFTs, lipid profile in the supraspinatus mild gallbladder wall thickening nonspecific no gallstones or hydropic change. Borderline caliber bile duct at 6 mm acceptable given patient's age. Unable to visualize the pancreas due to bowel gas. Right kidney surgically absent. 11/06/2023 Patient seen and examined today as a follow-up. States abdominal pain continues to improve. No nausea or vomiting. Patient is afebrile. WBC 16.2 hemoglobin 11.4 platelet count 156,000 sodium 130 potassium 4.8 BUN 31.5 creatinine 1.8 total bilirubin 0.6 AST 43 ALT 15 alkaline phosphatase 54 amylase 696 lipase thousand 25 triglycerides 174 IgG4 negative VIVIANA negative. Objective - Vital Signs Vital signs: Vital Signs Temp 97.9 F 11/06/23 01:48 Pulse 101 H 11/06/23 01:48 Resp 16 11/06/23 01:48 BP 118/84 11/06/23 01:48 Pulse Ox 91 L 11/06/23 01:48 FiO2 Intake & Output 11/05/23 11/05/23 11/06/23 06:59 18:59 06:59 Intake Total 1080 590 Output Total 425 Balance 655 590 Weight 97.522 kg 97.522 kg Intake: Oral 1080 590 Output: Urine 425 Other: Voiding Method Toilet Urinal # Voids 1 - Exam General appearance: The patient is alert, oriented, appears in no acute distress. HET: Head is normocephalic and atraumatic. Conjunctiva pink. Sclera anicteric. Neck: Supple without lymphadenopathy. Abdomen: Soft, right upper quadrant tenderness, nondistended. Extremities: Normal skin color and turgor. No pedal edema Skin: No rashes, no jaundice Neurological: No focal deficits. Alert and oriented. - Labs CBC & Chem 7: 11/06/23 03:00 11/06/23 03:00 Labs: Abnormal Lab Results - Last 24 Hours (Table) 11/05/23 11/05/23 11/05/23 Range/Units 05:18 05:18 05:18 Sodium 133 L (137-145) mmol/L Potassium 5.6 H (3.5-5.1) mmol/L Carbon Dioxide 17 L (22-30) mmol/L BUN 27 H (9-20) mg/dL Creatinine 1.55 H (0.66-1.25) mg/dL Glucose 104 H (74-99) mg/dL Triglycerides 174.00 H (0.00-149.00) mg/dL Amylase 1125 H* (30-110) U/L Lipase 85628 H (23-300) U/L IgG2 215.20 L (241.80-700.30) mg/dL Assessment and Plan (1) Acute pancreatitis Narrative/Plan: 73-year-old male presenting with acute pancreatitis unknown etiology. Denies any history of alcoholism no new medications. Does have a significant history of cancer including bladder, renal and prostate. First episode about 25 years ago with last episode about 5 years ago again he is unclear on etiology. Not following with anybody from gastroenterology for history of pancreatitis. Will plan symptomatic and supportive treatment. Triglycerides unremarkable, VIVIANA negative and IgG4 negative. Unclear etiology of pancreatitis. Recommend outpatient follow-up with gastroenterology. Patient can follow-up in [place] office. Current Visit: Yes Status: Acute Code(s): K85.90 - ACUTE PANCREATITIS WITHOUT NECROSIS OR INFECTION, UNSP SNOMED Code(s): 702452054 (2) History of nephrectomy, right Current Visit: Yes Status: Acute Code(s): Z90.5 - ACQUIRED ABSENCE OF KIDNEY SNOMED Code(s): 80215536054992 (3) Heart disease Current Visit: No Status: Acute Code(s): I51.9 - HEART DISEASE, UNSPECIFIED SNOMED Code(s): 85368538 (4) History of bladder cancer Current Visit: No Status: Acute Code(s): Z85.51 - PERSONAL HISTORY OF MALIGNANT NEOPLASM OF BLADDER SNOMED Code(s): 594883686 (5) History of prostate cancer Current Visit: No Status: Acute Code(s): Z85.46 - PERSONAL HISTORY OF MALIGNANT NEOPLASM OF PROSTATE SNOMED Code(s): 318713169 Plan: 1. Continue symptomatic and supportive care 2. Clear liquid diet, advance as tolerated 3. Continue with IV hydration 4. Pain medication as needed 5. Antiemetics as needed 6. IgG4, VIVIANA and triglycerides ordered and reviewed 5. No further workup indicated at this time. Anticipate discharge in the next 24 to 48 hours discussed with patient he can follow-up with gastroenterology and [place] in 2 weeks. Thank you for this consultation, we will sign off at this time. Dr. Damon Stahl I agree with the dictator's note, documented as a scribe by Heather England.
[2023-11-06 10:58] LABS: Chol/HDL Ratio 2.67 Ratio; LDL Cholesterol,Calculated 68.1 mg/dL (0.0-131.0)
[2023-11-06] MEDS: FUROSEMIDE 10 MG/ML 4 ML VIAL IV STA (11:30)
--- NOTE | 2023-11-06 12:31 | P.PN ---
Subjective Progress Note Date: 11/06/23 73 year-old man presented to the ED with complaints of upper abdominal pain. He arrived as a transfer from [facility] where he had gone as a result of worsening upper abdominal pain. Patient was found to be having an exacerbation of pancreatitis. Which the patient states he has had "a few times before". Patient denies alcohol use related to this current episode. He endorses a past medical history of previous episodes of pancreatitis, CAD w/CABG X 4 (1998), HF, HTN, HLD, Cancer (prostate). Patient has been placed on a clear liquid diet, has received a total of 2 mg Dilaudid for pain control and is currently receiving 75 ml/hr NS. Dilaudid 1 mg, Morphine Sulfate 4 mg both available for pain control as needed. Patient states he still is currently in quite a bit of pain. He states that his had episodes similar to this before, most recently being ~5 years ago and states that this pain was basically the same. On arrival at [facility] he was noted to have increased amylase and lipase and CT of the abdomen/pelvis reports acute pancreatitis. He has had pancreatitis on a few occasions dating back as far as about 25 years ago, per the patient, he denies any alcohol use and endorses no new medications. He endorses having some vomiting at home prior to coming to the hospital, no evidence hematemesis. On arrival he had leukocytosis, WBCs 15.2, normal LFTs, amylase 1,125 and lipase 17,163. Abdominal ultrasound completed here noted hepatomegaly with moderate hepatic steatosis - should correlate with LFTs, lipid profile - in the supraspinatus, mild gallbladder wall thickening, borderline caliber of the bile duct at 6 mm, and inability to visualize the pancreas due to bowel gas. Initial lab work done in the ER showed WBCs 15.2, Hgb 13, Hct 39.4, PLT 224, Na 133, K 5.6, HCO3 17, BUN 27, Cr 1.55, Amylase 1,125, Lipase 17,163. UA showed 1+ protein and 4 hyaline casts. EKG done in the ER showed heart rate of 148, A fib w/RVR, Right axis deviation, Low voltage QRS, Moderate ST depression Abdominal ultrasound completed here noted hepatomegaly with moderate hepatic steatosis - should correlate with LFTs, lipid profile - in the supraspinatus, mild gallbladder wall thickening, borderline caliber of the bile duct at 6 mm, and inability to visualize the pancreas due to bowel gas 11/05 - Patient seen at bedside today. As of patient was made n.p.o. except for taking his medications, patient received an additional 100 mL/h normal saline, patient has not received any additional fluids since that time. He has a history of heart failure as well as a right-sided nephrectomy, will continue to monitor and address fluids as needed. Additionally, GI was consulted and ordered IgG4, VIVIANA and triglycerides, as well as morning CBC, CMP, amylase and lipase. Patient's triglycerides were found to be elevated at 174, IgG 2 was found to be low at 215.20, while IgG 1 (543.20), IgG 3 (118.70), IgG4 (16.30) were all normal and patient's VIVIANA screening was considered negative. GI recommends continued IV hydration and pain medication as needed at this time. Patient's vital signs overnight showed a blood pressure of 118/84, heart rate of 101, respiratory rate of 16 with an oxygen saturation of 91% on 2 L nasal cannula. This morning's labs show WBCs 16.27,Hgb 11.4, Hct 34.6,, PLT 156, sodium 130, HCO3 15, BUN 31.5, creatinine 1.8. Patient showing some signs and symptoms of exacerbation of heart failure, fluids stopped, 40 mg IV Lasix has been ordered as well as chest x-ray to further evaluate currently pending the chest x-ray. Labs drawn today - WBCs 16.27,Hgb 11.4, Hct 34.6,, PLT 156, sodium 130, HCO3 15, BUN 31.5, creatinine 1.8, amylase 696, lipase 1025; yesterday's labs noted triglycerides 174, IgG one 543.20 (normal), IgG 2-15.20 (low), IgG three 118.7 (normal), IgG4 16.3 (normal), VIVIANA screen negative REVIEW OF SYSTEMS: CONSTITUTIONAL: No fever, no malaise, no fatigue. HEENT: No recent visual problems or hearing problems. Denied any sore throat. CARDIOVASCULAR: No chest pain, orthopnea, PND, no palpitations, no syncope. PULMONARY: Some shortness of breath. No cough, no hemoptysis. GASTROINTESTINAL: Endorses episodes of vomiting prior to arrival in the emergency department, at the start of his episode of pancreatitis. Denies peter temesis. NEUROLOGICAL: No headaches, no weakness, no numbness. HEMATOLOGICAL: Denies any bleeding or petechiae. GENITOURINARY: Denies any burning micturition, frequency, or urgency. MUSCULOSKELETAL/RHEUMATOLOGICAL: Denies any joint pain, swelling, or any muscle pain. ENDOCRINE: Denies any polyuria or polydipsia. The rest of the 14-point review of systems is negative. PHYSICAL EXAMINATION: GENERAL: The patient is alert and oriented x3, in moderate distress due to his abdominal discomfort and increasing shortness of breath. Well developed, well nourished. HEENT: Pupils are round and equally reacting to light. EOMI. No scleral icterus. No conjunctival pallor. Normocephalic, atraumatic. No pharyngeal erythema. No thyromegaly. CARDIOVASCULAR: S1 and S2 present. No murmurs, rubs, or gallops. PULMONARY: Chest is clear to auscultation, no wheezing or crackles. ABDOMEN: Mildly tender abdomen, mainly in the mid epigastric area. With distention. MUSCULOSKELETAL: No joint swelling or deformity. EXTREMITIES: No cyanosis, clubbing, or pedal edema. NEUROLOGICAL: Gross neurological examination did not reveal any focal deficits. SKIN: No rashes. # Acute Pancreatitis Patient with a history of multiple episodes of pancreatitis Amylase, lipase both elevated on arrival at [facility], CT scan done which endorsed acute pancreatitis Abdominal ultrasound completed here noted hepatomegaly with moderate hepatic steatosis - should correlate with LFTs, lipid profile - in the supraspinatus, mild gallbladder wall thickening, borderline caliber of the bile duct at 6 mm, and inability to visualize the pancreas due to bowel gas Clear liquid diet in moderation, continuing IV hydration Per GIs recommendation IgG4, VIVIANA and triglycerides ordered Pain medication as needed Antiemetics as needed Continue IV hydration with 100 mL/h normal saline Patient's triglycerides found to be elevated at 174, while IgG 1 (543.20), IgG3 (118.70), IgG4 (16.3) oral normal, while IgG 2 was low at 215.20. Patient's VIVIANA screen was considered negative Continue with pain management and monitor until patient feels ready to tolerate food # Acute hyponatremia possibly secondary to heart failure exacerbation Fluids discontinued Patient given 40 mg IV Lasix stat Chest x-ray ordered; showed increased congestion Monitor patient's oxygenation and breathing Continue patient's Flomax, Coreg, Lyrica GI prophylaxis: Protonix 40 mg daily Continue to monitor vital signs, monitor CBC, monitor CMP. Labs and medication were reviewed. Continue with symptomatic treatment. Dictation was produced using [employer] dictation software. please excuse any grammatical, word or spelling errors. Dr. Cheryl MD I have performed a history and physical examination and medical decision making of this patient, discussed the same with the the resident, and agree with the assessment and plan as written. I performed brief physical exam. Objective - Vital Signs Vital signs: Vital Signs Temp 97.9 F 11/06/23 01:48 Pulse 101 H 11/06/23 01:48 Resp 16 11/06/23 01:48 BP 118/84 11/06/23 01:48 Pulse Ox 91 L 11/06/23 01:48 FiO2 Intake & Output 11/05/23 11/06/23 11/06/23 18:59 06:59 18:59 Intake Total 1080 590 Output Total 425 Balance 655 590 Weight 97.522 kg Intake: Oral 1080 590 Output: Urine 425 Other: Voiding Method Toilet Urinal # Voids 1 - Labs CBC & Chem 7: 11/07/23 03:02 11/07/23 03:02 Labs: Abnormal Lab Results - Last 24 Hours (Table) 11/05/23 11/05/23 Range/Units 05:18 05:18 Triglycerides 174.00 H (0.00-149.00) mg/dL IgG2 215.20 L (241.80-700.30) mg/dL
--- NOTE | 2023-11-06 12:56 | XR ---
EXAMINATION TYPE: XR chest 1V DATE OF EXAM: 11/06/2023 COMPARISON: 08/30/2019 HISTORY: 73-year-old male CHF TECHNIQUE: Single frontal view of the chest is obtained. FINDINGS: ACDF hardware. Median sternotomy wires and postoperative clips. Heart mildly enlarged. Int erstitial prominence is increased. No sizable pleural effusion on the frontal view. IMPRESSION: Correlate for CHF with pulmonary vascular congestion. No deena pulmonary edema at this t jerome. [facility] 11/06/2023 12:49 PM
--- NOTE | 2023-11-07 07:31 | XR ---
EXAMINATION TYPE: XR chest 1V portable DATE OF EXAM: 11/07/2023 6:58 AM CLINICAL INDICATION: Male, 73 years old with history of CHF; COMPARISON: Chest radiographs from 11/06/2023 TECHNIQUE: XR chest 1V portable Frontal view of the chest. FINDINGS: Lungs/Pleura: There is no evidence of pleural effusion, focal consolidation, or pneumothorax. Pulmonary vascularity: Unremarkable. Heart/mediastinum: Cardiomediastinal silhouette is enlarged. Musculoskeletal: No acute osseous pathology. There is fixation hardware in the lower cervical spine. Midline sternotomy wires are noted. Right rotator cuff repair anchor. IMPRESSION: 1. No evidence for acute heart failure. 2. Mild cardiomegaly.
[2023-11-07 09:39] LABS: HGB 10.8 g/dL (13.0-17.0); MCH 30.3 pg (27.0-32.0); MCHC 32.7 g/dL (32.0-37.0); MCV 92.4 FL (80.0-97.0); Mean Platelet Volume 10.3 FL (9.5-12.2); NRBC Per 100 WBC 0 X 10*3/uL (0.00-0.01); Platelet Count 145 X 10*3/uL (140-440); RBC 3.57 X 10*6/uL (4.40-5.60); RDW 13.9 % (11.5-14.5); WBC 13.14 X 10*3/uL (4.50-10.00)
[2023-11-07 10:34] LABS: Basophils # (A) 0.03 X 10*3/uL (0.00-0.10); Basophils % (A) 0.2 %; Eosinophils # (A) 0.01 X 10*3/uL (0.04-0.35); Eosinophils % (A) 0.1 %; Lymphocytes # (A) 0.73 X 10*3/uL (0.90-5.00); Lymphocytes % (A) 5.6 %; Monocytes # (A) 1.49 X 10*3/uL (0.20-1.00); Monocytes % (A) 11.3 %; Neutrophils # (A) 10.77 X 10*3/uL (1.80-7.70); RBC Morphology Normal (Normal)
[2023-11-07 10:36] LABS: ALT 13 U/L (10-49); AST 34 U/L (14-35); Albumin 3.4 g/dL (3.8-4.9); Albumin/Globulin Ratio 1.48 Ratio (1.60-3.17); Alkaline Phosphatase 54 U/L (41-126); BUN/Creat Ratio 20.41 Ratio (12.00-20.00); Blood Urea Nitrogen 34.7 mg/dL (9.0-27.0); Calcium 8.2 mg/dL (8.7-10.3); Carbon Dioxide 18.5 mmol/L (21.6-31.8); Chloride 99 mmol/L (96-109); Globulin 2.3 g/dL (1.6-3.3); Glucose 137 mg/dL (70-110); Potassium 4.5 mmol/L (3.5-5.5); Sodium 131 mmol/L (135-145); Total Bilirubin 0.6 mg/dL (0.3-1.2); Total Protein 5.7 g/dL (6.2-8.2)
[2023-11-07 10:52] LABS: Amylase 155 U/L (23-121); Lipase 122 U/L (14-60)
--- NOTE | 2023-11-07 11:45 | P.PN ---
Subjective Progress Note Date: 11/07/23 73 year-old man presented to the ED with complaints of upper abdominal pain. He arrived as a transfer from [facility] where he had gone as a result of worsening upper abdominal pain. Patient was found to be having an exacerbation of pancreatitis. Which the patient states he has had "a few times before". Patient denies alcohol use related to this current episode. He endorses a past medical history of previous episodes of pancreatitis, CAD w/CABG X 4 (1998), HF, HTN, HLD, Cancer (prostate). Patient has been placed on a clear liquid diet, has received a total of 2 mg Dilaudid for pain control and is currently receiving 75 ml/hr NS. Dilaudid 1 mg, Morphine Sulfate 4 mg both available for pain control as needed. Patient states he still is currently in quite a bit of pain. He states that his had episodes similar to this before, most recently being ~5 years ago and states that this pain was basically the same. On arrival at [facility] he was noted to have increased amylase and lipase and CT of the abdomen/pelvis reports acute pancreatitis. He has had pancreatitis on a few occasions dating back as far as about 25 years ago, per the patient, he denies any alcohol use and endorses no new medications. He endorses having some vomiting at home prior to coming to the hospital, no evidence hematemesis. On arrival he had leukocytosis, WBCs 15.2, normal LFTs, amylase 1,125 and lipase 17,163. Abdominal ultrasound completed here noted hepatomegaly with moderate hepatic steatosis - should correlate with LFTs, lipid profile - in the supraspinatus, mild gallbladder wall thickening, borderline caliber of the bile duct at 6 mm, and inability to visualize the pancreas due to bowel gas. Initial lab work done in the ER showed WBCs 15.2, Hgb 13, Hct 39.4, PLT 224, Na 133, K 5.6, HCO3 17, BUN 27, Cr 1.55, Amylase 1,125, Lipase 17,163. UA showed 1+ protein and 4 hyaline casts. EKG done in the ER showed heart rate of 148, A fib w/RVR, Right axis deviation, Low voltage QRS, Moderate ST depression Abdominal ultrasound completed here noted hepatomegaly with moderate hepatic steatosis - should correlate with LFTs, lipid profile - in the supraspinatus, mild gallbladder wall thickening, borderline caliber of the bile duct at 6 mm, and inability to visualize the pancreas due to bowel gas 11/05 - Patient seen at bedside today. As of patient was made n.p.o. except for taking his medications, patient received an additional 100 mL/h normal saline, patient has not received any additional fluids since that time. He has a history of heart failure as well as a right-sided nephrectomy, will continue to monitor and address fluids as needed. Additionally, GI was consulted and ordered IgG4, VIVIANA and triglycerides, as well as morning CBC, CMP, amylase and lipase. Patient's triglycerides were found to be elevated at 174, IgG 2 was found to be low at 215.20, while IgG 1 (543.20), IgG 3 (118.70), IgG4 (16.30) were all normal and patient's VIVIANA screening was considered negative. GI recommends continued IV hydration and pain medication as needed at this time. Patient's vital signs overnight showed a blood pressure of 118/84, heart rate of 101, respiratory rate of 16 with an oxygen saturation of 91% on 2 L nasal cannula. This morning's labs show WBCs 16.27,Hgb 11.4, Hct 34.6,, PLT 156, sodium 130, HCO3 15, BUN 31.5, creatinine 1.8. Patient showing some signs and symptoms of exacerbation of heart failure, fluids stopped, 40 mg IV Lasix has been ordered as well as chest x-ray to further evaluate currently pending the chest x-ray. Labs drawn today - WBCs 16.27,Hgb 11.4, Hct 34.6,, PLT 156, sodium 130, HCO3 15, BUN 31.5, creatinine 1.8, amylase 696, lipase 1025; yesterday's labs noted triglycerides 174, IgG one 543.20 (normal), IgG 2-15.20 (low), IgG three 118.7 (normal), IgG4 16.3 (normal), VIVIANA screen negative 11/06 - Patient seen at bedside today. Patient was noted to have some possible CHF exacerbation yesterday due to increased fluids. Yesterday fluids were stopped and patient was given 40 mg IV Lasix. Repeat chest x-ray done this morning (11/06) showed no evidence of acute heart failure, mild cardiomegaly. Patient is in his room resting states he is feeling better than yesterday however still feeling a little bit "shallow" when breathing with slight exertion, will give 1 additional 20 mg IV Lasix.patient increase from 3 L nasal cannula to 4 L nasal cannula however saturating 95%, may look to wean down on oxygenation. Labs drawn this morning show, WBCs 13.14,Hgb 10.8,Hct 33.0, PLT 145, sodium 131, BUN 34.7, creatinine 1.7. Diet pushed to full liquid, patient states he is feeling better, discussed with the patient how we feel he will continue to feel better as the day progresses, and the tomorrow, assuming he is feeling well and has an appetite, could potentially be discharged. Labs drawn today - WBCs 13.14,Hgb 10.8,Hct 33.0, PLT 145, sodium 131, BUN 34.7, creatinine 1.7, amylase 155, lipase 127 Chest x-ray done today showed no evidence of acute heart failure and mild cardiomegaly REVIEW OF SYSTEMS: CONSTITUTIONAL: No fever, no malaise, no fatigue. HEENT: No recent visual problems or hearing problems. Denied any sore throat. CARDIOVASCULAR: No chest pain, orthopnea, PND, no palpitations, no syncope. PULMONARY: Some shortness of breath. No cough, no hemoptysis. GASTROINTESTINAL: Endorses episodes of vomiting prior to arrival in the emergency department, at the start of his episode of pancreatitis. Denies h ematemesis. NEUROLOGICAL: No headaches, no weakness, no numbness. HEMATOLOGICAL: Denies any bleeding or petechiae. GENITOURINARY: Denies any burning micturition, frequency, or urgency. MUSCULOSKELETAL/RHEUMATOLOGICAL: Denies any joint pain, swelling, or any muscle pain. ENDOCRINE: Denies any polyuria or polydipsia. The rest of the 14-point review of systems is negative. PHYSICAL EXAMINATION: GENERAL: The patient is alert and oriented x3, in moderate distress due to his abdominal discomfort and increasing shortness of breath. Well developed, well nourished. HEENT: Pupils are round and equally reacting to light. EOMI. No scleral icterus. No conjunctival pallor. Normocephalic, atraumatic. No pharyngeal erythema. No thyromegaly. CARDIOVASCULAR: S1 and S2 present. No murmurs, rubs, or gallops. PULMONARY: Chest is clear to auscultation, no wheezing or crackles. ABDOMEN: Mildly tender abdomen, mainly in the mid epigastric area. With distention. MUSCULOSKELETAL: No joint swelling or deformity. EXTREMITIES: No cyanosis, clubbing, or pedal edema. NEUROLOGICAL: Gross neurological examination did not reveal any focal deficits. SKIN: No rashes. # Acute Pancreatitis Patient with a history of multiple episodes of pancreatitis Amylase, lipase both elevated on arrival at [facility], CT scan done which endorsed acute pancreatitis Abdominal ultrasound completed here noted hepatomegaly with moderate hepatic steatosis - should correlate with LFTs, lipid profile - in the supraspinatus, mild gallbladder wall thickening, borderline caliber of the bile duct at 6 mm, and inability to visualize the pancreas due to bowel gas Clear liquid diet in moderation, continuing IV hydration Per GIs recommendation IgG4, VIVIANA and triglycerides ordered Pain medication as needed Antiemetics as needed Continue IV hydration with 100 mL/h normal saline Patient's triglycerides found to be elevated at 174, while IgG 1 (543.20), IgG3 (118.70), IgG4 (16.3) oral normal, while IgG 2 was low at 215.20. Patient's VIVIANA screen was considered negative Continue with pain management and monitor until patient feels ready to tolerate food # Acute hyponatremia possibly secondary to heart failure exacerbation Fluids discontinued Patient given 40 mg IV Lasix stat Chest x-ray ordered; showed increased congestion Monitor patient's oxygenation and breathing Additional 20 mg IV Lasix given on 11/06 Increase from 3 L nasal cannula to 4 L nasal cannula, however patient saturating 95% may look to wean as tolerated Continue patient's Flomax, Coreg, Lyrica GI prophylaxis: Protonix 40 mg daily Continue to monitor vital signs, monitor CBC, monitor CMP. Labs and medication were reviewed. Continue with symptomatic treatment. Dictation was produced using [employer] dictation software. please excuse any g rammatical, word or spelling errors. Dr. Cheryl MD I have performed a history and physical examination and medical decision making of this patient, discussed the same with the the resident, and agree with the assessment and plan as written. I performed brief physical exam. Objective - Vital Signs Vital signs: Vital Signs Temp 98.0 F 11/07/23 01:42 Pulse 100 11/07/23 01:42 Resp 16 11/07/23 01:42 BP 111/78 11/07/23 01:42 Pulse Ox 94 L 11/07/23 01:42 FiO2 Intake & Output 11/06/23 11/07/23 11/07/23 18:59 06:59 18:59 Intake Total 1080 240 Output Total 750 400 Balance 330 -160 Intake: Oral 1080 240 Output: Urine 750 400 Other: Voiding Method Urinal Urinal - Labs CBC & Chem 7: 11/07/23 03:02 11/07/23 03:02 Labs: Abnormal Lab Results - Last 24 Hours (Table) 11/05/23 11/06/23 11/06/23 Range/Units 05:18 03:00 03:00 WBC 16.27 H (4.50-10.00) X 10*3/uL RBC 3.69 L (4.40-5.60) X 10*6/uL Hgb 11.4 L (13.0-17.0) g/dL Hct 34.6 L (39.6-50.0) % Immature Gran # 0.07 H (0.00-0.04) X 10*3/uL Neutrophils # 14.23 H (1.80-7.70) X 10*3/uL Lymphocytes # 0.56 L (0.90-5.00) X 10*3/uL Monocytes # 1.38 H (0.20-1.00) X 10*3/uL Eosinophils # 0 L (0.04-0.35) X 10*3/uL NRBC/100 WBC Diff 0.02 H (0.00-0.01) X 10*3/uL Sodium 130 L (135-145) mmol/L Carbon Dioxide 15.0 L (21.6-31.8) mmol/L Anion Gap 13.00 H (4.00-12.00) mmol/L BUN 31.5 H (9.0-27.0) mg/dL Creatinine 1.8 H (0.6-1.5) mg/dL Est GFR (CKD-EPI) 40 L (>=60) AST 43 H (14-35) U/L Total Protein 5.9 L (6.2-8.2) g/dL Albumin 3.6 L (3.8-4.9) g/dL Albumin/Globulin Ratio 1.57 L (1.60-3.17) Ratio Triglycerides 176.00 H (0.00-149.00) mg/dL HDL Cholesterol 61.70 H (40.00-60.00) mg/dL Amylase 696 A* (23-121) U/L Lipase 1025 H (14-60) U/L
[2023-11-07] MEDS: FUROSEMIDE 10 MG/ML 2 ML VIAL IV STA (12:01)
[2023-11-07 17:48] LABS: Amylase 1125 U/L (30-110)
[2023-11-08] MEDS: ACETAMINOPHEN TAB 325 MG TAB PO PRN (01:32)
[2023-11-08 07:42] VITALS: TEMP 97.5
[2023-11-08 12:37] LABS: African American GFR (CKD) 57 (>60 ml/min/1.73 sqM); Anion Gap 14 mmol/L; Blood Urea Nitrogen 39 mg/dL (9-20); Calcium 8.5 mg/dL (8.4-10.2); Carbon Dioxide 11 mmol/L (22-30); Chloride 102 mmol/L (98-107); Glucose 197 mg/dL (74-99); Non-African American GFR(CKD) 49 (>60 ml/min/1.73 sqM); Sodium 127 mmol/L (137-145)
[2023-11-08 13:14] LABS: Potassium 5.8 mmol/L (3.5-5.1)
--- NOTE | 2023-11-08 13:38 | P.DS ---
Providers Date of admission: 11/05/23 07:20 Attending physician: Mekhi Smart MD Consults: 11/05/23 07:18 Consult Physician Routine Consulting Provider: Jasmin Stahl Consult Reason/Comments: pancreatitis Do you want consulting provider notified?: Yes Primary care physician: Esperanza Snowden DO Hospital Course: Final Diagnosis Acute on chronic pancreatitis Hepatic steatosis Hypertriglyceridemia Hypovolemic hyponatremia worsened with IV lasix Hyperkalemia from the ROSE Acute on chronic kidney injury Hx of coronary artery disease with prior CABG, and PCI Chronic diastolic dysfunction Hyperlipidemia Hypertension currently normotensive Hx of prostate, bladder and renal cancer Former smoker Full Code Discharge Disposition Patient needs to hold aldactone until repeat BMP and monitoring of potassium level on outpatient basis, as well as the hydrochlorothiazide. Stable for discharge. Continue all other home medications. Diet as tolerated and follow- up with GI services outpatient.v Hospital Course This is a 73 year-old man presented to the ED with complaints of upper abdominal pain. He arrived as a transfer from [facility] where he had gone as a result of worsening upper abdominal pain. Patient was found to be having an exacerbation of pancreatitis. Which the patient states he has had "a few times before". Patient denies alcohol use related to this current episode. He endorses a past medical history of previous episodes of pancreatitis, CAD w/CABG X 4 (1998), HF, HTN, HLD, Cancer (prostate). Patient has been placed on a clear liquid diet. Patient states he still is currently in quite a bit of pain. He states that his had episodes similar to this before, most recently being ~5 years ago and states that this pain was basically the same. On arrival at [facility] he was noted to have increased amylase and lipase and CT of the abdomen/pelvis reports acute pancreatitis. He has had pancreatitis on a few occasions dating back as far as about 25 years ago, per the patient, he denies any alcohol use and endorses no new medications. He endorses having some vomiting at home prior to coming to the hospital, no evidence hematemesis. On arrival he had leukocytosis, WBCs 15.2, normal LFTs, amylase 1,125 and lipase 17,163. Abdominal ultrasound completed here noted hepatomegaly with moderate hepatic steatosis - should correlate with LFTs, lipid profile - in the supraspinatus, mild gallbladder wall thickening, borderline caliber of the bile duct at 6 mm, and inability to visualize the pancreas due to bowel gas. Admitted to the hospital with consult placed to GI services. Patient was receiving IV fluids for the pancreatitis there was concern for CHF exacerbation he was given IV lasix and his sodium actually dropped to 127, his creatinine did improve to 1.47, potassium now 5.8. To discharge home he is tolerating full liquid diet at this time. We will give a dose of Lokelma and recommend patient to repeat his blood work on Thursday on an outpatient basis and follow-up with his PCP. He will need to hold his Aldactone on discharge. He was evaluated with his hospitalization by GI services for his pancreatitis was recommended to follow-up with GI on an outpatient basis once he is discharged. Please see medication reconciliation for a list of current medications. Thank you for allowing us to participate in the care of this patient. The impression and plan of care has been dictated by Rosemary Waller, Nurse Practitioner as directed. Dr. Cheryl MD I have performed a history and physical examination and medical decision making of this patient, discussed the same with the dictator, and agree with the dictators assessment and plan as written, documented as a scribe. Based on total visit time, I have performed more than 50% of this visit. Patient Condition at Discharge: Fair Plan - Discharge Summary Discharge Rx Participant: No New Discharge Prescriptions: No Action ALPRAZolam [Xanax] 0.25 mg PO BID Tamsulosin HCl [Flomax] 0.4 mg PO DAILY Atorvastatin [Lipitor] 40 mg PO HS carvediloL [Coreg] 25 mg PO BID Spironolactone 25 mg PO BID Folic Acid 1 mg PO DAILY Famotidine [Pepcid] 20 mg PO DAILY HYDROcodone/APAP 10-325MG [[place] 10] 1 tab PO Q4HR PRN PRN Reason: Pain Mv-Min/Folic/K1/Lycopen/Lutein [Centrum Silver Men Tablet] 1 tab PO DAILY Cyclobenzaprine [Flexeril] 10 mg PO DAILY polyethylene glycoL 3350 [Miralax] 17 gm PO DAILY PRN PRN Reason: Constipation hydroCHLOROthiazide [Hydrodiuril] 25 mg PO BID Pregabalin [Lyrica] 75 mg PO BID Discharge Medication List ALPRAZolam [Xanax] 0.25 mg PO BID 10/21/18 [History] Atorvastatin [Lipitor] 40 mg PO HS 10/21/18 [History] Tamsulosin HCl [Flomax] 0.4 mg PO DAILY 10/21/18 [History] Cyclobenzaprine [Flexeril] 10 mg PO DAILY 06/10/21 [History] Spironolactone 25 mg PO BID 06/10/21 [History] carvediloL [Coreg] 25 mg PO BID 06/10/21 [History] Famotidine [Pepcid] 20 mg PO DAILY 11/05/23 [History] Folic Acid 1 mg PO DAILY 11/05/23 [History] HYDROcodone/APAP 10-325MG [[place] 10] 1 tab PO Q4HR PRN 11/05/23 [History] Mv-Min/Folic/K1/Lycopen/Lutein [Centrum Silver Men Tablet] 1 tab PO DAILY 11/05/23 [History] Pregabalin [Lyrica] 75 mg PO BID 11/05/23 [History] hydroCHLOROthiazide [Hydrodiuril] 25 mg PO BID 11/05/23 [History] polyethylene glycoL 3350 [Miralax] 17 gm PO DAILY PRN 11/05/23 [History] Follow up Appointment(s)/Referral(s): Jasmin Stahl MD [STAFF PHYSICIAN] - 2 Weeks Esperanza Snowden DO [Primary Care Provider] - 1-2 days
[2023-11-08] MEDS: SODIUM ZIRCONIUM CYCLOSILICATE 10 GM PACKET PO ONE (13:39)
[2023-11-08 13:44] VITALS: BP 98/64; PULSE 75; RESP 18
== END 2023-11-08 16:37 | disposition home or self-care (01) | DRG 439 ==
LOC: EC 04:15 → 5NMEDONC 07:20
PROVIDERS: ADMIT Internal Medicine; ATTEND Internal Medicine
DX: K85.90 Acute pancreatitis without necrosis or infection, unspecified (principal); E87.1 Hypo-osmolality and hyponatremia; N17.9 Acute kidney failure, unspecified; I50.32 Chronic diastolic (congestive) heart failure; K86.1 Other chronic pancreatitis; Z85.46 Personal history of malignant neoplasm of prostate; Z85.528 Personal history of other malignant neoplasm of kidney; Z85.51 Personal history of malignant neoplasm of bladder; E78.1 Pure hyperglyceridemia; E86.1 Hypovolemia; E87.5 Hyperkalemia; F41.9 Anxiety disorder, unspecified; I11.0 Hypertensive heart disease with heart failure; I25.10 Atherosclerotic heart disease of native coronary artery without angina pectoris; I48.91 Unspecified atrial fibrillation; K76.0 Fatty (change of) liver, not elsewhere classified; Z79.899 Other long term (current) drug therapy; Z87.891 Personal history of nicotine dependence; Z90.5 Acquired absence of kidney; Z95.1 Presence of aortocoronary bypass graft; Z96.651 Presence of right artificial knee joint; Z98.1 Arthrodesis status; Z95.5 Presence of coronary angioplasty implant and graft; Z28.21 Immunization not carried out because of patient refusal; Z88.0 Allergy status to penicillin; Z87.11 Personal history of peptic ulcer disease; Z92.3 Personal history of irradiation
CPT/HCPCS: 36415; 71045; 76705; 80048; 80053; 80061; 81001; 82150; 82787; 83690; 83880; 84478; 85025; 86038; 96360; 96361; 96375; 99285

== ENCOUNTER 2024-03-04 08:46 | Day surgery (SDC) | payer MEDICARE, OTHER ==
[2024-02-29 16:22] VITALS: BMI 30.1
[2024-03-04 09:16] VITALS: TEMP 97
[2024-03-04] MEDS: SODIUM CHLORIDE 0.9% 1,000 ML IV ONE (09:26)
[2024-03-04] MEDS: LEVOFLOXACIN 500MG-D5W PMX 500 MG in DEXTROSE/WATER 1 100ML.BAG IVPB STA (09:40)
[2024-03-04 09:45] LABS: Basophils % (A) 1 %; Eosinophils # (A) 0.1 k/uL (0-0.7); Eosinophils % (A) 1 %; HCT 35.6 % (39.0-53.0); HGB 11.9 gm/dL (13.0-17.5); Lymphocytes # (A) 1.2 k/uL (1.0-4.8); Lymphocytes % (A) 18 %; MCH 31.9 pg (25.0-35.0); MCHC 33.4 g/dL (31.0-37.0); MCV 95.4 fL (80.0-100.0); Mean Platelet Volume 7.7; Monocytes # (A) 0.4 k/uL (0-1.0); Monocytes % (A) 6 %; Neutrophils # (A) 5.1 k/uL (1.3-7.7); Neutrophils % (A) 73 %; Platelet Count 211 k/uL (150-450); RBC 3.73 m/uL (4.30-5.90); RDW 13.6 % (11.5-15.5)
[2024-03-04] MEDS: INDOMETHACIN 100 MG SUPPOSITORY RECTAL ONE (09:45)
[2024-03-04 10:01] LABS: ALT 16 U/L (4-49); AST 21 U/L (17-59); African American GFR (CKD) 63 (>60 ml/min/1.73 sqM); Albumin 4.1 g/dL (3.5-5.0); Alkaline Phosphatase 58 U/L (38-126); Anion Gap 12 mmol/L; Blood Urea Nitrogen 28 mg/dL (9-20); Calcium 10.2 mg/dL (8.4-10.2); Carbon Dioxide 18 mmol/L (22-30); Chloride 104 mmol/L (98-107); Glucose 130 mg/dL (74-99); Non-African American GFR(CKD) 55 (>60 ml/min/1.73 sqM); Potassium 4.9 mmol/L (3.5-5.1); Sodium 134 mmol/L (137-145); Total Bilirubin 0.7 mg/dL (0.2-1.3); Total Protein 6.6 g/dL (6.3-8.2)
[2024-03-04 10:15] LABS: Prothrombin Time 11.4 sec (10.0-12.5)
[2024-03-04] MEDS ORDERED: PROPOFOL 10 MG/ML 20 ML VIAL IV ONE (10:20)
[2024-03-04] MEDS ORDERED: LIDOCAINE 1% INJ 10MG/ML (20 ML MDV) ONE (10:20)
[2024-03-04] MEDS ORDERED: fentaNYL (PF) 50 MCG/ML 2 ML AMP ONE (10:20)
[2024-03-04] MEDS ORDERED: MIDAZOLAM 2 MG/2 ML VIAL ONE (10:20)
[2024-03-04] MEDS: IOPAMIDOL-300 30ML BTL INJ ONE (10:31)
[2024-03-04 11:33] VITALS: PULSE 70
[2024-03-04 11:53] VITALS: BP 148/78; RESP 18
--- NOTE | 2024-03-04 12:16 | P.PCN ---
Date of Procedure: 03/04/24 Procedure(s) Performed: Brief history: Patient is a 73 year-old pleasant white male scheduled for an ERCP as part of evaluation of acute recurrent pancreatitis.. As a part of workup he had EUS of the pancreas done at [facility] by Dr. Skelton which revealed a small stone in the distal common bile duct and hence he scheduled for an ERCP today CBD stone extraction. Procedure performed: ERCP with partial biliary sphincterotomy Preoperative diagnoses: Acute recurrent pancreatitis/CBD stone noted on recent EUS of the pancreas IV sedation per anesthesia: Procedure: After informed consent was obtained from the patient and after the risks benefits and complications including bleeding perforation and pancreatitis explained in detail the patient was brought into the endoscopy unit. The patient was placed in prone position and IV conscious sedation was administered by anesthesia under continuous monitoring. The Olympus side-viewing duodenoscope was then inserted into the mouth and esophagus intubated without any difficulty. The scope was gradually advanced into the stomach and duodenum. The major papilla was identified without any difficulty. However despite multiple times I was not able to get the ampulla into reasonable position. Despite this I cannulated the common bile duct and upon injection of the dye the CBD appeared slightly dilated measuring 1 cm in size with a small filling defect in the distal common bile duct. At this time the catheter was exchanged over a guidewire and I was trying to perform a biliary sphincterotomy the whole scope fell out of the duodenum. After this I tried this multiple times and was not able to get the position properly to perform a sphincterotomy. After trying for almost half an hour the procedure was terminated and the patient tolerated the procedure well. Impression: Slightly dilated common bile duct with a small filling defect in the distal CBD s/p post partial sphincterotomy and despite multiple attempts and technical difficulties I could not perform a complete biliary sphincterotomy and hence the CBD stone could not be removed Pancreatic duct not cannulated during the entire procedure Recommendations: The findings of this examination were discussed with the patient as well as a family. He will be referred back to [facility] and advanced endoscopy team for repeat ERCP and CBD stone extraction
--- NOTE | 2024-03-04 12:32 | FL ---
EXAMINATION TYPE: FL ERCP DATE OF EXAM: 03/04/2024 FLUOROSCOPY attempted ERCP with partial sphincterotomy FL time 33 seconds, [id number], 4 images sent into PACS, Dr Stahl [facility], Workstation: [facility], 03/04/2024 12:30 PM
== END 2024-03-04 12:20 | disposition home or self-care (01) ==
LOC: ORWHC2ENDO 08:46
PROVIDERS: ATTEND Internal Medicine Gastroenterology
DX: K80.50 Calculus of bile duct without cholangitis or cholecystitis without obstruction (principal); K85.90 Acute pancreatitis without necrosis or infection, unspecified; I11.0 Hypertensive heart disease with heart failure; I50.9 Heart failure, unspecified; I25.10 Atherosclerotic heart disease of native coronary artery without angina pectoris; F41.9 Anxiety disorder, unspecified; K21.9 Gastro-esophageal reflux disease without esophagitis; Z79.899 Other long term (current) drug therapy; Z88.0 Allergy status to penicillin; Z85.46 Personal history of malignant neoplasm of prostate; Z85.528 Personal history of other malignant neoplasm of kidney; Z98.890 Other specified postprocedural states; Z95.5 Presence of coronary angioplasty implant and graft
CPT/HCPCS: 80053; 85025; 85610; 74330; 43262; J2250; J1956; J2003; J3010; J2704